=== PATIENT | female | born 1950 | race Caucasian/White ===

== ENCOUNTER 2017-02-07 13:31 | Emergency (ER) | payer MEDICARE ==
--- NOTE | 2017-02-07 14:59 | RAD ---
INDICATION: Chest pain. COMPARISON: Comparison is made with prior chest x-ray studies from July 14, 2016 and March 23, 2015. TECHNIQUE: Dual-energy PA and lateral views of the chest were obtained. FINDINGS: The heart is within normal limits in size. Mediastinal and hilar contours appear within normal limits. The lungs are clear. No pleural effusion is present. IMPRESSION: NO EVIDENCE FOR ACTIVE CARDIOPULMONARY DISEASE.
[2017-02-07 15:04] LABS: Hematocrit 37 % (35-47); Hemoglobin 12.2 g/dl (12.0-16.0); Mean Corpuscular HGB Conc 33 g/dl (31-36); Mean Corpuscular Hemoglobin 28 pg (27-31); Mean Corpuscular Volume 86 fL (80-97); Mean Platelet Volume 9 um3 (7.4-10.4); Red Blood Count 4.31 10^6/ul (4.0-5.4); Red Cell Distribution Width 13 % (10.5-15); White Blood Count 6.2 10^3/ul (3.5-10.8)
[2017-02-07 15:25] LABS: Albumin 4.1 g/dL (3.2-5.2); Calcium 9.2 mg/dL (8.6-10.3); EGFR African American 95.9 (>60); EGFR Non-African American 74.5 (>60); Globulin 2.6 g/dL (2-4); Total Bilirubin 0.9 mg/dL (0.2-1.0); Total Protein 6.7 g/dL (6.4-8.9)
[2017-02-07 16:24] VITALS: BP 125/65
--- NOTE | 2017-02-08 14:31 | ED ---
Jose M Rosa Matthew, scribed for Kahlil Ny MD on 02/07/17 at 1415 . HPI Chest Pain - HPI Summary HPI Summary: A 66 y/o female presents to the ED with sudden intermittent mid-sternal chest pain since 04:00 that radiates left anteriorly. Nothing worsens or improves the pain. Denies SOB, palpitations, and any other symptoms. Currently, the patient does not have any pain. She also had chest pain yesterday morning at 04:00 as well, which resolved on its own, after taking her Zantac. Hx of cardiac catheterization and HTN. She is on potassium for a tachycardia dysrhythmia. 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 Rogers. - History of Current Complaint Chief Complaint: EDChestWallPain Time Seen by Provider: 02/07/17 13:56 Hx Obtained From: Patient Onset/Duration: Started Hours Ago, Atraumatic, Still Present Timing: Intermittent Initial Severity: Moderate Current Severity: None Pain Intensity: 0 Pain Scale Used: 0-10 Numeric Chest Pain Location: Mid Sternal Chest Pain Radiates: Yes Chest Pain Radiates To:: Other - left anteriorly Aggravating Factor(s): Nothing Alleviating Factor(s): Nothing Associated Signs and Symptoms: Positive: Chest Pain - none currently - Additional Pertinent History Primary Care Physician: [id number] - Allergy/Home Medications Allergies/Adverse Reactions: Allergies Allergy/AdvReac Type Severity Reaction Status Date / Time Celecoxib [From Celebrex] Allergy Intermediate Fatigue Verified 07/13/16 13:23 Amoxicillin [From Augmentin] Allergy GI Upset Verified 07/13/16 13:23 Cephalexin [From Keflex] Allergy Dizziness Verified 07/13/16 13:23 Ciprofloxacin [From Cipro] Allergy Dizziness Verified 07/13/16 13:23 Clarithromycin [From Biaxin] Allergy Nausea Verified 07/13/16 13:23 Clavulanic Acid Allergy GI Upset Verified 07/13/16 13:23 [From Augmentin] Hydrocodone Allergy Nausea Verified 07/13/16 13:23 Penicillins Allergy Itching Verified 07/13/16 13:23 Cefuroxime [From Ceftin] AdvReac Nausea And Verified 07/13/16 13:23 Vomiting PMH/Surg Hx/FS Hx/Imm Hx Endocrine/Hematology History: Denies: Hx Diabetes Cardiovascular History: Reports: Hx Hypertension - ON MEDS, Other Cardiovascular Problems/Disorders - CLEAN CARDIAC CATHETERIZATION, HX OF GERD ALSO Denies: Hx Pacemaker/ICD GI History: Reports: Hx Gastroesophageal Reflux Disease, Hx Hiatal Hernia - ? NO PROBLEMS, THINKS DR GERARD TOLD HER AFTER EXAM History: Reports: Hx Kidney Stones - LEFT. Denies: Hx Renal Disease Musculoskeletal History: Reports: Hx Arthritis - Osteroarthritis Sensory History: Reports: Hx Contacts or Glasses - Reading only Denies: Hx Hearing Aid Opthamlomology History: Reports: Hx Contacts or Glasses - Reading only Psychiatric History: Reports: Hx Anxiety, Hx Depression - XANAX PRN , RARELY USES Denies: Hx Panic Disorder - Cancer History Hx Chemotherapy: No Hx Radiation Therapy: No - Surgical History Surgery Procedure, Year, and Place: cath 2008,gb 1969, vein stripped 2011, 2 c- sections, Bilateral knee arthroscopic, Hx Anesthesia Reactions: No - Immunization History Date of Tetanus Vaccine: unsure Date of Influenza Vaccine: 2012 Infectious Disease History: Denies: Traveled Outside the [place] in Last 30 Days - Family History Known Family History: Positive: Cardiac Disease, Diabetes, Other - kidney stone (sister) Negative: Hypertension - Social History Alcohol Use: None Substance Use Type: Reports: None Smoking Status (MU): Never Smoked Tobacco Review of Systems Constitutional: Negative Eyes: Negative ENT: Negative Positive: Chest Pain - none currently. Negative: Palpitations Respiratory: Negative Negative: Shortness Of Breath Gastrointestinal: Negative Genitourinary: Negative Musculoskeletal: Negative Skin: Negative Neurological: Negative Psychological: Normal All Other Systems Reviewed And Are Negative: Yes Physical Exam Triage Information Reviewed: Yes Vital Signs On Initial Exam: Initial Vitals Temp Pulse Resp BP Pulse Ox 97.6 F 89 18 135/78 99 02/07/17 13:36 02/07/17 13:36 02/07/17 13:36 02/07/17 13:36 02/07/17 13:36 Vital Signs Reviewed: Yes Appearance: Positive: Well-Appearing, No Pain Distress Skin: Positive: Warm, Skin Color Reflects Adequate Perfusion, Dry Head/Face: Positive: Normal Head/Face Inspection Eyes: Positive: Normal ENT: Positive: Normal ENT inspection Neck: Positive: Supple, Nontender Respiratory/Lung Sounds: Positive: Clear to Auscultation, Breath Sounds Present Cardiovascular: Positive: RRR Abdomen Description: Positive: Nontender, Soft Bowel Sounds: Positive: Present Musculoskeletal: Positive: Normal, Strength/ROM Intact Neurological: Positive: Normal, Alert, Oriented to Person Place, Time Psychiatric: Positive: Affect/Mood Appropriate Diagnostics - Vital Signs Vital Signs Temp Pulse Resp BP Pulse Ox 02/07/17 13:36 97.6 F 89 18 135/78 99 - Laboratory Lab Results: Lab Results 02/07/17 02/07/17 02/07/17 Range/Units 14:50 14:50 14:50 WBC 6.2 (3.5-10.8) 10^3/ul RBC 4.31 (4.0-5.4) 10^6/ul Hgb 12.2 (12.0-16.0) g/dl Hct 37 (35-47) % MCV 86 (80-97) fL MCH 28 (27-31) pg MCHC 33 (31-36) g/dl RDW 13 (10.5-15) % Plt Count 204 (150-450) 10^3/ul MPV 9 (7.4-10.4) um3 Neut % (Auto) 55.1 (38-83) % Lymph % (Auto) 33.1 (25-47) % Knott % (Auto) 7.6 (1-9) % Eos % (Auto) 3.5 (0-6) % Baso % (Auto) 0.7 (0-2) % Absolute Neuts (auto) 3.4 (1.5-7.7) 10^3/ul Absolute Lymphs (auto) 2.1 (1.0-4.8) 10^3/ul Absolute Monos (auto) 0.5 (0-0.8) 10^3/ul Absolute Eos (auto) 0.2 (0-0.6) 10^3/ul Absolute Basos (auto) 0 (0-0.2) 10^3/ul Absolute Nucleated RBC 0.01 10^3/ul Nucleated RBC % 0.2 D-Dimer, Quantitative < 200 (Less Than 230) ng/mL Sodium 137 (133-145) mmol/L Potassium 4.0 (3.5-5.0) mmol/L Chloride 107 (101-111) mmol/L Carbon Dioxide 25 (22-32) mmol/L Anion Gap 5 (2-11) mmol/L BUN 20 (6-24) mg/dL Creatinine 0.77 (0.51-0.95) mg/dL Est GFR ( Amer) 95.9 (>60) Est GFR (Non-Af Amer) 74.5 (>60) BUN/Creatinine Ratio 26.0 H (8-20) Glucose 101 H (70-100) mg/dL Lactic Acid (0.5-2.0) mmol/L Calcium 9.2 (8.6-10.3) mg/dL Total Bilirubin 0.90 (0.2-1.0) mg/dL AST 19 (13-39) U/L ALT 16 (7-52) U/L Alkaline Phosphatase 72 (34-104) U/L Troponin I 0.00 (<0.04) ng/mL Total Protein 6.7 (6.4-8.9) g/dL Albumin 4.1 (3.2-5.2) g/dL Globulin 2.6 (2-4) g/dL Albumin/Globulin Ratio 1.6 (1-3) 05/13/17 Range/Units 14:50 WBC (3.5-10.8) 10^3/ul RBC (4.0-5.4) 10^6/ul Hgb (12.0-16.0) g/dl Hct (35-47) % MCV (80-97) fL MCH (27-31) pg MCHC (31-36) g/dl RDW (10.5-15) % Plt Count (150-450) 10^3/ul MPV (7.4-10.4) um3 Neut % (Auto) (38-83) % Lymph % (Auto) (25-47) % Knott % (Auto) (1-9) % Eos % (Auto) (0-6) % Baso % (Auto) (0-2) % Absolute Neuts (auto) (1.5-7.7) 10^3/ul Absolute Lymphs (auto) (1.0-4.8) 10^3/ul Absolute Monos (auto) (0-0.8) 10^3/ul Absolute Eos (auto) (0-0.6) 10^3/ul Absolute Basos (auto) (0-0.2) 10^3/ul Absolute Nucleated RBC 10^3/ul Nucleated RBC % D-Dimer, Quantitative (Less Than 230) ng/mL Sodium (133-145) mmol/L Potassium (3.5-5.0) mmol/L Chloride (101-111) mmol/L Carbon Dioxide (22-32) mmol/L Anion Gap (2-11) mmol/L BUN (6-24) mg/dL Creatinine (0.51-0.95) mg/dL Est GFR ( Amer) (>60) Est GFR (Non-Af Amer) (>60) BUN/Creatinine Ratio (8-20) Glucose (70-100) mg/dL Lactic Acid 0.7 (0.5-2.0) mmol/L Calcium (8.6-10.3) mg/dL Total Bilirubin (0.2-1.0) mg/dL AST (13-39) U/L ALT (7-52) U/L Alkaline Phosphatase (34-104) U/L Troponin I (<0.04) ng/mL Total Protein (6.4-8.9) g/dL Albumin (3.2-5.2) g/dL Globulin (2-4) g/dL Albumin/Globulin Ratio (1-3) Result Diagrams: 02/07/17 14:50 02/07/17 14:50 Lab Statement: Any lab studies that have been ordered have been reviewed, and results considered in the medical decision making process. - Radiology CXR Xray Interpretation: No Acute Changes - IMPRESSION: NO EVIDENCE FOR ACTIVE CARDIOPULMONARY DISEASE. Radiology Interpretation Completed By: Radiologist - EKG 13:43 Cardiac Rate: NL - 74 bpm EKG Rhythm: Sinus Rhythm Chest Pain Course/Dx - Course Course Of Treatment: Ms. Alex presented to the ED after experiencing chest pain that woke her up at about 0400 two mornings in a row. This morning is tood about 90 minutes to resolve and she became concerned. Her W/U here including a troponin (11 hours after) and d-dimer (Well's criteria 0)was negative and I think this is likely reflux. We talked about ways to prevent it and I recommended F/U. - Diagnoses Provider Diagnoses: Chest pain Discharge - Discharge Plan Condition: Stable Disposition: HOME Patient Education Materials: Chest Pain (ED) Referrals: Sheng Bush MD [Primary Care Provider] - 2 Days Additional Instructions: Please follow-up with your primary care physician in 2 days. Return to the ED for new or worsening symptoms. The documentation as recorded by the Jose M gorman Matthew accurately reflects the service I personally performed and the decisions made by me, Kahlil Ny MD.
== END 2017-02-07 16:23 | disposition home or self-care (01) ==
LOC: ED 13:31
DX: R07.9 Chest pain, unspecified (principal)
CPT/HCPCS: 36415; 71020; 80053; 83605; 84484; 85025; 85379; 93005; 99282

== ENCOUNTER → 2017-07-13 07:43 | Emergency (ER) | payer MEDICARE ==
[~2017-07-13 07:43] MED LIST: Ketorolac INJ* 30 MG/ML 1 ML VIAL IV PUSH ONE; NS 0.9% 1000 ML* 1,000 ML IV ONE; Ondansetron INJ* 2 MG/ML VIAL IV ONE; Ondansetron INJ* 2 MG/ML VIAL ONE; cefTRIAXone(*) 2 GM ADDV.VIAL IVPB ONE
[2017-07-13 10:01] LABS: Hematocrit 38 % (35-47); Hemoglobin 12.7 g/dl (12.0-16.0); Mean Corpuscular HGB Conc 33 g/dl (31-36); Mean Corpuscular Hemoglobin 29 pg (27-31); Mean Corpuscular Volume 87 fL (80-97); Mean Platelet Volume 8 um3 (7.4-10.4); Red Blood Count 4.38 10^6/ul (4.0-5.4); Red Cell Distribution Width 14 % (10.5-15); White Blood Count 5.2 10^3/ul (3.5-10.8)
--- NOTE | 2017-07-13 10:07 | RAD ---
INDICATION: Head injury. COMPARISON: There are no prior studies available for comparison. TECHNIQUE: Contiguous axial sections of the brain were obtained from the skull base to the vertex without contrast. FINDINGS: The ventricles, cisterns and sulci are within normal limits. No significant focal abnormality or mass effect is seen. There is no evidence for hemorrhage. No significant focal osseous abnormality is seen. The visualized portion of the paranasal sinuses and mastoid air cells appear clear. IMPRESSION: NO EVIDENCE FOR ACUTE INTRACRANIAL ABNORMALITY.
[2017-07-13 10:12] LABS: Albumin 4.2 g/dL (3.2-5.2); BUN/Creatinine Ratio 24.7 (8-20); Calcium 9.4 mg/dL (8.6-10.3); EGFR African American 90.4 (>60); EGFR Non-African American 70.3 (>60); Globulin 2.6 g/dL (2-4); Magnesium 1.8 mg/dL (1.9-2.7); Potassium 3.9 mmol/L (3.5-5.0); Total Bilirubin 1.7 mg/dL (0.2-1.0); Total Protein 6.8 g/dL (6.4-8.9)
[2017-07-13] MEDS: NS 0.9% 1000 ML* 2,000 ML IV ONE (10:15)
--- NOTE | 2017-07-13 10:15 | RAD ---
INDICATION: Fall, stone disease, possible sepsis, malaise. COMPARISON: Comparison is made with a prior study from July 07, 2017. TECHNIQUE: A CT scan of the abdomen and pelvis was performed without intravenous or oral contrast. Contiguous axial sections were obtained from the lung bases through the symphysis pubis. Images were reconstructed in the coronal and sagittal planes. FINDINGS: There is mild dependent bilateral lower lobe subsegmental atelectasis. No pleural effusion is present. The liver and spleen are normal in size without significant focal abnormality on this noncontrast study. The patient is status post cholecystectomy. The pancreas appears to be within normal limits. The adrenal glands and kidneys are normal in size. There is a 5 mm calculus in the lower pole of the right kidney. No hydronephrosis is present. No bladder calculi are seen. The aorta is normal in caliber without significant calcific plaque. No significant enlarged retroperitoneal lymph nodes are seen. There is a small hiatal hernia. The stomach, small and large bowel appear nondistended. The appendix is not visualized. There is mild to moderate sigmoid diverticulosis. There is no evidence for diverticulitis or colitis. The uterus is anteverted and normal in size. No free intraperitoneal air or fluid is seen. No significant focal osseous abnormality is seen. IMPRESSION: 1. NO EVIDENCE FOR ACUTE FINDING. 2. SMALL NONOBSTRUCTING RIGHT RENAL CALCULUS. 3. STATUS POST CHOLECYSTECTOMY.
--- NOTE | 2017-07-13 10:21 | RAD ---
INDICATION: Fall. Neck pain. COMPARISON: Cervical spine November 24, 2013 TECHNIQUE: Noncontrast axial source images was performed from the skull base to the thoracic inlet. Coronal and and sagittal reformatted images were generated. FINDINGS: Vertebrae: There is no fracture or acute focal bony lesion. There is multilevel spondylitic change. There is moderate spurring from C5 through T1. There is mild to moderate disc space narrowing at C5-C6 and C6-C7 with uncinate process spurring leading to mild bilateral foraminal encroachment at both levels. There is mild posterior spondylitic ridge formation at C5-C7 There is moderate facet arthropathy throughout. Alignment: The craniocervical junction appears normal. The cervical vertebrae are normally aligned. Central Canal: There is no significant canal or foraminal compromise but there are the degenerative findings as noted above. MR imaging is a more sensitive method to evaluate the canal and foramina. Intervertebral disc spaces: The remaining disc spaces are maintained. Brain: The visualized brain appears unremarkable. Soft tissues: The visualized soft tissue elements of the neck are unremarkable. The prevertebral soft tissues appear normal. The lung apices are clear. IMPRESSION: MODERATE MIDCERVICAL OSTEOARTHRITIC CHANGE. NO ACUTE FINDINGS
[2017-07-13 10:38] LABS: TSH (Thyroid Stimulating Horm) 0.31 mcIU/mL (0.34-5.60)
--- NOTE | 2017-07-13 11:20 | RAD ---
Indication: Pain RIGHT upper arm post fall. Comparison: No relevant prior exams available on the [facility] PACS for comparison. Technique: AP and lateral views RIGHT humerus. Report: Negative for humerus fracture or articular malalignment. Mild spurring and sclerosis at the greater tuberosity of the humerus typically seen in association with chronic rotator cuff pathology. Mild AC joint osteophytosis and small inferior acromial bone spur. Unremarkable soft tissue contours. IMPRESSION: Negative for fracture.
--- NOTE | 2017-07-13 11:25 | RAD ---
INDICATION: Left knee pain. Fall. COMPARISON: None TECHNIQUE: AP, lateral, tunnel, and sunrise views were obtained. FINDINGS: There is osteopenia. There is minor patellofemoral spurring. The lateral joint space is preserved. There is mild medial joint space narrowing. There is chondrocalcinosis. There is a small suprapatellar joint effusion. IMPRESSION: OSTEOARTHRITIS. JOINT EFFUSION. NO ACUTE FINDINGS
[2017-07-13 11:37] LABS: Urine Bacteria Absent (Absent); Urine Bilirubin Negative (Negative); Urine Glucose Negative (Negative); Urine Nitrite Negative (Negative)
[2017-07-13 13:26] VITALS: BP 128/65
--- NOTE | 2017-07-14 14:17 | ED ---
Reji Rosa Alfonso scribed for Barney Sheppard MD on 07/13/17 at 0838 . Adult Trauma - HPI Summary HPI Summary: This patient is a 66 year old F presenting to [facility] accompanied by family s/p a fall at 0600 yesterday morning. She took a face plant into a lawn of grass after tripping over a piece of metal. She was assisted to stand after her fall. She was seen last night at [facility] urgent care and given a tetanus injection. The patient rates the pain 8/10 in severity. Symptoms aggravated by I fell because it was dark out. Symptoms alleviated by nothing. Patient reports chills (since this morning), nausea, vomiting, diffuse myalgia, right knee pain , right shoulder pain, right elbow pain, back pain, fatigue, weakness, loss of appetite (she ate dinner last night), and head band. Patient denies fever, diaphoresis, abdominal pain, diarrhea, LOC, dizziness, lightheadedness, memory loss, difficulty thinking, and insomnia (slept well last night). She is currently on MacroBID abx. PMHx includes osteoarthritis. - History of Current Complaint Chief Complaint: EDFacialInjury Stated Complaint: FALL Time Seen by Provider: 07/13/17 08:11 Hx Obtained From: Patient, Family/Managing Manager Mechanism of Injury: Fall Loss of Consciousness: no loss of consciousness Onset/Duration: Started Days Ago Current Severity: Severe Pain Intensity: 8 Pain Scale Used: 0-10 Numeric Aggravating Factor(s): Other - I fell because it was dark out. Alleviating Factor(s): Nothing Associated Signs & Symptoms: Positive: Other: - chills (since this morning), nausea, vomiting, diffuse myalgia, right knee pain, right shoulder pain, right elbow pain, back pain, fatigue, weakness, loss of appetite (she ate dinner last night), and head band. Patient denies fever, diaphoresis, abdominal pain, diarrhea, LOC, dizziness, lightheadedness, memory loss, difficulty thinking, and insomnia (slept well last night). - Additional Pertinent History Primary Care Physician: [id number] - Allergy/Home Medications Allergies/Adverse Reactions: Allergies Allergy/AdvReac Type Severity Reaction Status Date / Time Celecoxib [From Celebrex] Allergy Intermediate Fatigue Verified 07/13/17 07:53 Amoxicillin [From Augmentin] Allergy GI Upset Verified 07/13/17 07:53 Cephalexin [From Keflex] Allergy Dizziness Verified 07/13/17 07:53 Ciprofloxacin [From Cipro] Allergy Dizziness Verified 07/13/17 07:53 Clarithromycin [From Biaxin] Allergy Nausea Verified 07/13/17 07:53 Clavulanic Acid Allergy GI Upset Verified 07/13/17 07:53 [From Augmentin] Hydrocodone Allergy Nausea Verified 07/13/17 07:53 Penicillins Allergy Itching Verified 07/13/17 07:53 Cefuroxime [From Ceftin] AdvReac Nausea And Verified 07/13/17 07:53 Vomiting PMH/Surg Hx/FS Hx/Imm Hx Endocrine/Hematology History: Denies: Hx Diabetes Cardiovascular History: Reports: Hx Hypertension - ON MEDS, Other Cardiovascular Problems/Disorders - CLEAN CARDIAC CATHETERIZATION, HX OF GERD ALSO Denies: Hx Pacemaker/ICD GI History: Reports: Hx Gastroesophageal Reflux Disease, Hx Hiatal Hernia - ? 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 Sensory History: Reports: Hx Contacts or Glasses - Reading only Denies: Hx Hearing Aid Opthamlomology History: Reports: Hx Contacts or Glasses - Reading only Psychiatric History: Reports: Hx Anxiety, Hx Depression - XANAX PRN , RARELY USES Denies: Hx Panic Disorder - Cancer History Hx Chemotherapy: No Hx Radiation Therapy: No - Surgical History Surgery Procedure, Year, and Place: cath 2008,cholecystectomy 1969, vein stripped 2011, 2 c-sections, Bilateral knee arthroscopic, Hx Anesthesia Reactions: No - Immunization History Date of Tetanus Vaccine: unsure Date of Influenza Vaccine: 2013 Infectious Disease History: No Infectious Disease History: Denies: Traveled Outside the [place] in Last 30 Days - Family History Known Family History: Positive: Cardiac Disease, Diabetes, Other - kidney stone (sister) Negative: Hypertension - Social History Alcohol Use: None Substance Use Type: Reports: None Smoking Status (MU): Never Smoked Tobacco Review of Systems Positive: Chills. Negative: Fever, Skin Diaphoresis Negative: Erythema Negative: Sore Throat Negative: Chest Pain Negative: Shortness Of Breath, Cough Positive: Vomiting, Nausea. Negative: Abdominal Pain, Diarrhea Negative: dysuria, hematuria Positive: Myalgia, Other - right knee pain, right shoulder pain, right elbow pain, back pain. Negative: Edema Negative: Rash Neurological: Other - fatigue, weakness, loss of appetite (she ate dinner last night), and head band. Negative LOC, dizziness, lightheadedness, memory loss, difficulty thinking, and insomnia (slept well last night). All Other Systems Reviewed And Are Negative: Yes Physical Exam - Summary Physical Exam Summary: Constitutional: Well-developed, Well-nourished, Alert, Cooperative Skin: Warm, Dry HENT: Normocephalic; No Racoons eyes; No battles sign; No abrasion; No contusion ; No hemotympanum; No maxilla facial tenderness or instability; Dentition are smooth; No dental trauma; No trismus Eyes: EOM normal, PERRL Neck: Trachea is midline. No stridor; No JVD; No step off; No posterior cervical spine tenderness Cardio: Rhythm regular, rate normal Heart sounds normal; Intact distal pulses; The pedal pulses are 2+ and symmetric. Radial pulses are 2+ and symmetric. Pulmonary/Chest wall: Effort normal; Breath sounds normal; Equal chest rise; No flail segment; No rib tenderness; No sternal tenderness Abd: Soft, Appearance normal. No distension; No tenderness; No palpable pulsatile mass; No Cullens sign; No Britt-Turners sign Musculoskeletal: No tenderness at hips, ankles, shoulders, elbows and knees; No joint swelling; No vertebral body tenderness; No paraspinal tenderness; No step off or deformity of the spine; Pelvis is stable to lateral compression and rock. Mild right humorous tenderness. Left knee swelling with limited ROM. Neuro: Alert, Oriented x3, Strength 5/5 all extremities. : No blood at urethral meatus Psych: Mood and affect Normal Triage Information Reviewed: Yes Vital Signs On Initial Exam: Initial Vitals Temp Pulse Resp BP Pulse Ox 98.0 F 93 16 96/69 100 07/13/17 07:44 07/13/17 07:44 07/13/17 07:44 07/13/17 07:44 07/13/17 07:44 Vital Signs Reviewed: Yes Diagnostics - Vital Signs Vital Signs Temp Pulse Resp BP Pulse Ox 07/13/17 07:44 98.0 F 93 16 96/69 100 - Laboratory Result Diagrams: 07/13/17 09:25 07/13/17 09:25 Lab Statement: Any lab studies that have been ordered have been reviewed, and results considered in the medical decision making process. - Radiology Right humerus X-Ray Radiology Interpretation Completed By: Radiologist - Negative for fracture. ED physician has reviewed this radiology report and agrees. Left knee X-Ray Radiology Interpretation Completed By: Radiologist - OSTEOARTHRITIS. JOINT EFFUSION. NO ACUTE FINDINGS. ED physician has reviewed this radiology report and agrees. - CT A/P CT Interpretation Completed By: Radiologist - 1. NO EVIDENCE FOR ACUTE FINDING. 2. SMALL NONOBSTRUCTING RIGHT RENAL CALCULUS. 3. STATUS POST CHOLECYSTECTOMY. ED physician has reviewed this radiology report and agrees. C-Spine CT Interpretation Completed By: Radiologist - MODERATE MIDCERVICAL OSTEOARTHRITIC CHANGE. NO ACUTE FINDINGS. ED physician has reviewed this radiology report and agrees. Brain CT Interpretation Completed By: Radiologist - NO EVIDENCE FOR ACUTE INTRACRANIAL ABNORMALITY. ED physician has reviewed this radiology report and agrees. - EKG 0855 Cardiac Rate: NL - BPM 90 EKG Rhythm: Sinus Rhythm EKG Interpretation: No STEMI. Re-Evaluation - Re-Evaluation First Eval Re-Evaluation Time: 13:00 Change: Improved Comment: Patient is feeling much improved with toradol. Imaging and lab results reviewed. Adult Trauma Course/Dx - Course Assessment/Plan: This patient is a 66 year old F presenting to [facility] accompanied by family s/p a fall at 0600 yesterday morning. She took a face plant into a lawn of grass after tripping over a piece of metal. She was assisted to stand after her fall. She was seen last night at [facility] urgent care and given a tetanus injection. The patient rates the pain 8/10 in severity. Symptoms aggravated by I fell because it was dark out. Symptoms alleviated by nothing. Patient reports chills (since this morning), nausea, vomiting, diffuse myalgia, right knee pain, right shoulder pain, right elbow pain, back pain, fatigue, weakness, loss of appetite (she ate dinner last night), and head band. Patient denies fever, diaphoresis, abdominal pain, diarrhea, LOC, dizziness, lightheadedness, memory loss, difficulty thinking, and insomnia (slept well last night). She is currently on MacroBID abx. PMHx includes osteoarthritis. An EKG reveals NSR. CT brain reveals NO EVIDENCE FOR ACUTE INTRACRANIAL ABNORMALITY. ED physician has reviewed this radiology report and agrees. CT C- Spine reveals MODERATE MIDCERVICAL OSTEOARTHRITIC CHANGE. NO ACUTE FINDINGS. ED physician has reviewed this radiology report and agrees. CT A/P reveals 1. NO EVIDENCE FOR ACUTE FINDING. 2. SMALL NONOBSTRUCTING RIGHT RENAL CALCULUS. 3. STATUS POST CHOLECYSTECTOMY. ED physician has reviewed this radiology report and agrees. Left knee X-Ray reveals OSTEOARTHRITIS. JOINT EFFUSION. NO ACUTE FINDINGS. ED physician has reviewed this radiology report and agrees. Right humerus X-Ray reveals Negative for fracture. ED physician has reviewed this radiology report and agrees. Patient will be discharged with prescription for Keflex and Toradol and follow up from PCP. The patient is agreeable with this plan. - Diagnoses Provider Diagnoses: Pyuria, Concussion, Arm contusion, Knee contusion Discharge - Discharge Plan Condition: Stable Disposition: HOME Prescriptions: Cephalexin CAP* [Keflex CAP*] 500 mg PO QID #28 cap Ketorolac TAB * [Toradol TAB *] 10 mg PO Q6H #10 tab Patient Education Materials: Knee Pain (ED), Concussion (ED) Referrals: Sheng Bush MD [Primary Care Provider] - 3 Days Additional Instructions: RETURN TO THE EMERGENCY DEPARTMENT FOR CHANGING OR WORSENING SYMPTOMS. The documentation as recorded by the Reji gorman Alfonso accurately reflects the service I personally performed and the decisions made by , Barney Sheppard MD.
== END | disposition home or self-care (01) ==
LOC: ED 07:43
DX: N39.0 Urinary tract infection, site not specified (principal); S06.0X0A Concussion without loss of consciousness, initial encounter; S40.029A Contusion of unspecified upper arm, initial encounter; S80.00XA Contusion of unspecified knee, initial encounter; R11.2 Nausea with vomiting, unspecified; W22.8XXA Striking against or struck by other objects, initial encounter; Y93.9 Activity, unspecified; Y92.9 Unspecified place or not applicable
CPT/HCPCS: 36415; 70450; 72125; 74176; 80053; 81003; 81015; 83605; 83735; 84443; 84484; 85025; 87040; 87086; 93005; 96374; 96376; 99283; J0696; J1885; J2405

== ENCOUNTER 2017-10-05 08:43 | Emergency (ER) | payer MEDICARE ==
[2017-10-05] MEDS ORDERED: NS 0.9% 1000 ML* 1,000 ML IV ONE (10:10)
[2017-10-05 10:32] LABS: ABS Basophils 0 10^3/ul (0-0.2); ABS Eosinophils 0.1 10^3/ul (0-0.6); ABS Lymphocytes 1.7 10^3/ul (1.0-4.8); ABS Monocytes 0.6 10^3/ul (0-0.8); ABS Neutrophils 4.5 10^3/ul (1.5-7.7); ABS Nucleated RBC 0 10^3/ul; Eosinophil % 1.5 % (0-6); Hematocrit 36 % (35-47); Hemoglobin 11.9 g/dl (12.0-16.0); Lymphocyte % 24.3 % (25-47); Mean Corpuscular HGB Conc 34 g/dl (31-36); Mean Corpuscular Hemoglobin 29 pg (27-31); Mean Corpuscular Volume 87 fL (80-97); Mean Platelet Volume 8 um3 (7.4-10.4); Nucleated Red Blood Cells % 0; Platelet Count 220 10^3/ul (150-450); Red Blood Count 4.08 10^6/ul (4.0-5.4); Red Cell Distribution Width 13 % (10.5-15); White Blood Count 6.9 10^3/ul (3.5-10.8)
[2017-10-05 10:45] LABS: INR 1.09 (0.77-1.02)
[2017-10-05 10:50] LABS: EGFR Non-African American 99.4 (>60)
--- NOTE | 2017-10-05 10:57 | RAD ---
Indication: Chest pain. Single frontal view of the chest performed at 1020 hours was reviewed. Comparison is made with previous exam dated August 27, 2017. No mediastinal shift is noted. Heart is of normal size and configuration. Lung mag[place] appear clear. There is elevated right hemidiaphragm. IMPRESSION: NO ACTIVE CARDIOPULMONARY DISEASE IS NOTED.
[2017-10-05 12:08] LABS: Urine Appearance Clear; Urine Blood Negative (Negative); Urine Color Yellow; Urine Ketones Negative (Negative); Urine Protein Negative (Negative); Urine Specific Gravity 1.013 (1.010-1.030); Urine Urobilinogen Negative (Negative)
--- NOTE | 2017-10-05 13:30 | ED ---
Cecil Rosa Gabriel, scribed for Avila Calvin MD on 10/05/17 at 0959 . Complex/Multi-Sys Presentation - HPI Summary HPI Summary: This patient is a 66 year old F presenting to [facility] with a chief complaint of body aches since 10/02/17. The patient rates the pain 2/10 in severity. Patient reports right shoulder pain and LE pain bilaterally. Patient denies ABD pain and urine color changes. She states these pains are causing her inability to move. Patient says that her pain began in June after her fall but has gotten worse in the past three days. She recently she has been taken an antibiotic for her UTI and believes this may be causing her pain although she had taken in before. - History Of Current Complaint Chief Complaint: EDGeneral Hx Obtained From: Patient, Family/Salvager Onset/Duration: Lasting Days - 3, Still Present Timing: Constant Severity Currently: Mild Severity Initially: Mild Location: Pain At: - right shoulder, bilateral LE Associated Signs And Symptoms: Negative: Abdominal Pain - Allergies/Home Medications Allergies/Adverse Reactions: Allergies Allergy/AdvReac Type Severity Reaction Status Date / Time Celecoxib [From Celebrex] Allergy Intermediate Fatigue Verified 10/05/17 09:15 Amoxicillin [From Augmentin] Allergy GI Upset Verified 10/05/17 09:15 Cephalexin [From Keflex] Allergy Dizziness Verified 10/05/17 09:15 Ciprofloxacin [From Cipro] Allergy Dizziness Verified 10/05/17 09:15 Clarithromycin [From Biaxin] Allergy Nausea Verified 10/05/17 09:15 Clavulanic Acid Allergy GI Upset Verified 10/05/17 09:15 [From Augmentin] Hydrocodone Allergy Nausea Verified 10/05/17 09:15 Penicillins Allergy Itching Verified 10/05/17 09:15 Cefuroxime [From Ceftin] AdvReac Nausea And Verified 10/05/17 09:15 Vomiting Home Medications: Home Medications Nitrofurantoin Macrocrystals* [Macrodantin*] 100 mg PO BID 10/05/17 [History Confirmed 10/05/17] PMH/Surg Hx/FS Hx/Imm Hx Endocrine/Hematology History: Denies: Hx Diabetes Cardiovascular History: Reports: Hx Hypertension - ON MEDS, Other Cardiovascular Problems/Disorders - CLEAN CARDIAC CATHETERIZATION, HX OF GERD ALSO Denies: Hx Pacemaker/ICD GI History: Reports: Hx Gastroesophageal Reflux Disease, Hx Hiatal Hernia - ? 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 Sensory History: Reports: Hx Contacts or Glasses - Reading only Denies: Hx Hearing Aid Opthamlomology History: Reports: Hx Contacts or Glasses - Reading only Psychiatric History: Reports: Hx Anxiety, Hx Depression - XANAX PRN , RARELY USES Denies: Hx Panic Disorder - Cancer History Hx Chemotherapy: No Hx Radiation Therapy: No - Surgical History Surgery Procedure, Year, and Place: cath 2008,cholecystectomy 1970, vein stripped 2011, 2 c-sections, Bilateral knee arthroscopic, Hx Anesthesia Reactions: No - Immunization History Date of Tetanus Vaccine: unsure Date of Influenza Vaccine: 2012 Infectious Disease History: Yes Infectious Disease History: Denies: Traveled Outside the [place] in Last 30 Days - Family History Known Family History: Positive: Cardiac Disease, Diabetes, Other - kidney stone (sister) Negative: Hypertension - Social History Lives: With Family Alcohol Use: None Hx Substance Use: No Substance Use Type: Reports: None Hx Tobacco Use: No Smoking Status (MU): Former Smoker Review of Systems Positive: Fatigue Eyes: Negative ENT: Negative Cardiovascular: Negative Respiratory: Negative Negative: Abdominal Pain Genitourinary: Negative - abnormal urine color Negative: hematuria Positive: Other - pain at right shoulder and both LE Skin: Negative All Other Systems Reviewed And Are Negative: Yes Physical Exam - Summary Physical Exam Summary: Appearance: Well-appearing, Well-nourished Skin: Warm Eyes: Normal ENT: Normal Neck: Supple, nontender Respiratory: Clear to auscultation Cardiovascular: Normal, Normal peripheral pulses bilaterally in upper and lower extremities. Abdomen: Soft, nontender Bowel: Present Musculoskeletal: Normal, Strength/ROM Intact, Neurological: Normal, A&Ox3 Psychiatric: Normal Triage Information Reviewed: Yes Vital Signs On Initial Exam: Initial Vitals Temp Pulse Resp BP Pulse Ox 97.4 F 96 18 158/82 97 10/05/17 08:51 10/05/17 08:51 10/05/17 08:51 10/05/17 08:51 10/05/17 08:51 Vital Signs Reviewed: Yes Diagnostics - Vital Signs Vital Signs Temp Pulse Resp BP Pulse Ox 10/05/17 09:08 87 97 10/05/17 09:06 138/72 10/05/17 08:51 97.4 F 96 18 158/82 97 - Laboratory Lab Results: Lab Results 10/05/17 10/05/17 10/05/17 Range/Units 10:17 10:17 10:17 WBC 6.9 (3.5-10.8) 10^3/ul RBC 4.08 (4.0-5.4) 10^6/ul Hgb 11.9 L (12.0-16.0) g/dl Hct 36 (35-47) % MCV 87 (80-97) fL MCH 29 (27-31) pg MCHC 34 (31-36) g/dl RDW 13 (10.5-15) % Plt Count 220 (150-450) 10^3/ul MPV 8 (7.4-10.4) um3 Neut % (Auto) 65.3 (38-83) % Lymph % (Auto) 24.3 L (25-47) % [place] % (Auto) 8.2 (1-9) % Eos % (Auto) 1.5 (0-6) % Baso % (Auto) 0.7 (0-2) % Absolute Neuts (auto) 4.5 (1.5-7.7) 10^3/ul Absolute Lymphs (auto) 1.7 (1.0-4.8) 10^3/ul Absolute Monos (auto) 0.6 (0-0.8) 10^3/ul Absolute Eos (auto) 0.1 (0-0.6) 10^3/ul Absolute Basos (auto) 0 (0-0.2) 10^3/ul Absolute Nucleated RBC 0 10^3/ul Nucleated RBC % 0 INR (Anticoag Therapy) 1.09 H (0.77-1.02) Sodium 138 (133-145) mmol/L Potassium 3.5 (3.5-5.0) mmol/L Chloride 107 (101-111) mmol/L Carbon Dioxide 28 (22-32) mmol/L Anion Gap 3 (2-11) mmol/L BUN 22 (6-24) mg/dL Creatinine 0.60 (0.51-0.95) mg/dL Est GFR ( Amer) 127.9 (>60) Est GFR (Non-Af Amer) 99.4 (>60) BUN/Creatinine Ratio 36.7 H (8-20) Glucose 87 (70-100) mg/dL Calcium 9.2 (8.6-10.3) mg/dL Magnesium 2.0 (1.9-2.7) mg/dL Total Bilirubin 0.80 (0.2-1.0) mg/dL AST 15 (13-39) U/L ALT 18 (7-52) U/L Alkaline Phosphatase 75 (34-104) U/L Total Creatine Kinase 671 H (10-223) U/L Troponin I 0.00 (<0.04) ng/mL Total Protein 6.5 (6.4-8.9) g/dL Albumin 3.8 (3.2-5.2) g/dL Globulin 2.7 (2-4) g/dL Albumin/Globulin Ratio 1.4 (1-3) TSH 0.69 (0.34-5.60) mcIU/mL Urine Color Urine Appearance Urine pH (5-9) Ur Specific [place] (1.010-1.030) Urine Protein (Negative) Urine Ketones (Negative) Urine Blood (Negative) Urine Nitrate (Negative) Urine Bilirubin (Negative) Urine Urobilinogen (Negative) Ur Leukocyte Esterase (Negative) Urine WBC (Auto) (Absent) Urine RBC (Auto) (Absent) Ur Squamous Epith Cells (Absent) Urine Bacteria (Absent) Urine Glucose (Negative) Influenza A (Rapid) (Negative) Influenza B (Rapid) (Negative) Blood Type Antibody Screen 10/05/17 10/05/17 10/05/17 Range/Units 10:17 11:45 11:59 WBC (3.5-10.8) 10^3/ul RBC (4.0-5.4) 10^6/ul Hgb (12.0-16.0) g/dl Hct (35-47) % MCV (80-97) fL MCH (27-31) pg MCHC (31-36) g/dl RDW (10.5-15) % Plt Count (150-450) 10^3/ul MPV (7.4-10.4) um3 Neut % (Auto) (38-83) % Lymph % (Auto) (25-47) % [place] % (Auto) (1-9) % Eos % (Auto) (0-6) % Baso % (Auto) (0-2) % Absolute Neuts (auto) (1.5-7.7) 10^3/ul Absolute Lymphs (auto) (1.0-4.8) 10^3/ul Absolute Monos (auto) (0-0.8) 10^3/ul Absolute Eos (auto) (0-0.6) 10^3/ul Absolute Basos (auto) (0-0.2) 10^3/ul Absolute Nucleated RBC 10^3/ul Nucleated RBC % INR (Anticoag Therapy) (0.77-1.02) Sodium (133-145) mmol/L Potassium (3.5-5.0) mmol/L Chloride (101-111) mmol/L Carbon Dioxide (22-32) mmol/L Anion Gap (2-11) mmol/L BUN (6-24) mg/dL Creatinine (0.51-0.95) mg/dL Est GFR ( Amer) (>60) Est GFR (Non-Af Amer) (>60) BUN/Creatinine Ratio (8-20) Glucose (70-100) mg/dL Calcium (8.6-10.3) mg/dL Magnesium (1.9-2.7) mg/dL Total Bilirubin (0.2-1.0) mg/dL AST (13-39) U/L ALT (7-52) U/L Alkaline Phosphatase (34-104) U/L Total Creatine Kinase (10-223) U/L Troponin I (<0.04) ng/mL Total Protein (6.4-8.9) g/dL Albumin (3.2-5.2) g/dL Globulin (2-4) g/dL Albumin/Globulin Ratio (1-3) TSH (0.34-5.60) mcIU/mL Urine Color Yellow Urine Appearance Clear Urine pH 6.0 (5-9) Ur Specific [place] 1.013 (1.010-1.030) Urine Protein Negative (Negative) Urine Ketones Negative (Negative) Urine Blood Negative (Negative) Urine Nitrate Negative (Negative) Urine Bilirubin Negative (Negative) Urine Urobilinogen Negative (Negative) Ur Leukocyte Esterase Trace H (Negative) Urine WBC (Auto) Trace(0-5/hpf) (Absent) Urine RBC (Auto) Trace(0-2/hpf) (Absent) Ur Squamous Epith Cells Present H (Absent) Urine Bacteria Absent (Absent) Urine Glucose Negative (Negative) Influenza A (Rapid) Negative (Negative) Influenza B (Rapid) Positive H (Negative) Blood Type A Positive Antibody Screen Negative Result Diagrams: 10/05/17 10:17 10/05/17 10:17 Lab Statement: Any lab studies that have been ordered have been reviewed, and results considered in the medical decision making process. - Radiology CXR Radiology Interpretation Completed By: Radiologist - NO ACTIVE CARDIOPULMONARY DISEASE IS NOTED. ED physician has reviewed this radiology report. - EKG 10:20 Cardiac Rate: NL EKG Rhythm: Sinus Rhythm - at 72 BPM Re-Evaluation - Re-Evaluation First Eval Re-Evaluation Time: 13:07 Change: Unchanged Comment: Discussed test results with patient and path of care. Complex Multi-Symp Course/Dx Assessment/Plan: flu positive, consistent with history and physical with migratory arthritis and diffuse muscle aches. Pt complains of vague R sided weakness and has elevated R sided hemidiaphragm seen on prior XRays. Mildly decreased breath sounds on R lung, instructed to fu with neurologist for further workup. No resp distress, agrees to and understnads dc instructions. - Diagnoses Provider Diagnoses: Influenza Discharge - Discharge Plan Condition: Stable Disposition: HOME Patient Education Materials: Influenza (ED) Referrals: Sheng Bush MD [Primary Care Provider] - Additional Instructions: PLEASE MAKE AN APPOINTMENT FIRST THING IN THE MORNING TO BE SEEN BY A NEUROLOGIST TO EVALUATE WEAKNESS AND ELEVATED HEMIDIAPHRAGM WITHIN 1-2 WEEKS PLEASE RETURN IMMEDIATELY TO THE ER IF YOU HAVE ANY WORSENING OR CONCERNING SYMPTOMS PLEASE MAKE AN APPOINTMENT TO BE SEEN BY YOUR PRIMARY CARE DOCTOR WITHIN 1 WEEK The documentation as recorded by the Cecil gorman Gabriel accurately reflects the service I personally performed and the decisions made by me, Avila Calvin MD.
[2017-10-05 14:16] VITALS: BP 140/90
== END 2017-10-05 14:15 | disposition home or self-care (01) ==
LOC: ED 08:43
DX: J11.1 Influenza due to unidentified influenza virus with other respiratory manifestations (principal); Z87.891 Personal history of nicotine dependence; Z88.3 Allergy status to other anti-infective agents; Z88.5 Allergy status to narcotic agent; Z88.0 Allergy status to penicillin; Z88.8 Allergy status to other drugs, medicaments and biological substances
CPT/HCPCS: 36415; 71045; 80053; 81003; 81015; 82550; 83735; 84443; 84484; 85025; 85610; 86850; 86900; 86901; 87086; 87502; 93005; 96360; 99283

== ENCOUNTER 2017-10-12 04:32 | Emergency (ER) | payer MEDICARE ==
[2017-10-12] MEDS ORDERED: NS 0.9% 1000 ML* 1,000 ML IV ONE (05:00)
[2017-10-12] MEDS ORDERED: Ketorolac INJ* 30 MG/ML 1 ML VIAL IV PUSH ONE (05:03)
[2017-10-12 05:34] LABS: ABS Basophils 0 10^3/ul (0-0.2); ABS Eosinophils 0.1 10^3/ul (0-0.6); ABS Lymphocytes 1.8 10^3/ul (1.0-4.8); ABS Monocytes 0.6 10^3/ul (0-0.8); ABS Neutrophils 5.1 10^3/ul (1.5-7.7); ABS Nucleated RBC 0 10^3/ul; Eosinophil % 1.6 % (0-6); Hematocrit 35 % (35-47); Hemoglobin 11.8 g/dl (12.0-16.0); Lymphocyte % 23.8 % (25-47); Mean Corpuscular HGB Conc 34 g/dl (31-36); Mean Corpuscular Hemoglobin 29 pg (27-31); Mean Corpuscular Volume 87 fL (80-97); Mean Platelet Volume 8 um3 (7.4-10.4); Nucleated Red Blood Cells % 0; Platelet Count 249 10^3/ul (150-450); Red Blood Count 4.04 10^6/ul (4.0-5.4); Red Cell Distribution Width 13 % (10.5-15); White Blood Count 7.6 10^3/ul (3.5-10.8)
[2017-10-12 05:48] LABS: EGFR Non-African American 89.1 (>60)
[2017-10-12] MEDS ORDERED: Potassium Chlor TAB* 20 MEQ TAB.ER PO ONE (06:01)
[2017-10-12] MEDS ORDERED: Morphine INJ* 4 MG/ML 1 ML CARPUJECT IV ONE (06:06)
[2017-10-12] MEDS ORDERED: Ondansetron INJ* 2 MG/ML VIAL IV ONE (06:06)
[2017-10-12 07:06] VITALS: BP 116/99
[2017-10-12] MEDS ORDERED: Ondansetron ODT TAB* 4 MG SL PRN (07:12)
[2017-10-12] MEDS ORDERED: Ondansetron ODT TAB* 4 MG ONE (07:13)
--- NOTE | 2017-10-12 20:04 | ED ---
Ti Rosa Nilda, scribed for Kaiser Cummins MD on 10/12/17 at 0618 . Influenza-Like Illness - HPI Summary HPI Summary: This patient is a 66 year old F presenting to [facility] accompanied by with a chief complaint of constant severe diffuse body aches for the past week. The patient rates the pain 7/10 in severity. Patient was recently dx with flu on 10/05. Patient denies fever, rash, and weakness. Symptoms aggravated by movement and alleviated by rest. - History of Current Complaint Chief Complaint: EDWeakness Time Seen by Provider: 10/12/17 04:40 Hx Obtained From: Patient Onset/Duration: Sudden Onset, Lasting Weeks, Still Present Severity: Moderate Associated Signs & Symptoms: Myalgia Related Hx: Possible Flu/Infectious Exposure - Allergy/Home Medications Allergies/Adverse Reactions: Allergies Allergy/AdvReac Type Severity Reaction Status Date / Time Celecoxib [From Celebrex] Allergy Intermediate Fatigue Verified 10/12/17 04:41 Amoxicillin [From Augmentin] Allergy GI Upset Verified 10/12/17 04:41 Cephalexin [From Keflex] Allergy Dizziness Verified 10/12/17 04:41 Ciprofloxacin [From Cipro] Allergy Dizziness Verified 10/12/17 04:41 Clarithromycin [From Biaxin] Allergy Nausea Verified 10/12/17 04:41 Clavulanic Acid Allergy GI Upset Verified 10/12/17 04:41 [From Augmentin] Hydrocodone Allergy Nausea Verified 10/12/17 04:41 Penicillins Allergy Itching Verified 10/12/17 04:41 Cefuroxime [From Ceftin] AdvReac Nausea And Verified 10/12/17 04:41 Vomiting PMH/Surg Hx/FS Hx/Imm Hx Endocrine/Hematology History: Denies: Hx Diabetes Cardiovascular History: Reports: Hx Hypertension - ON MEDS, Other Cardiovascular Problems/Disorders - CLEAN CARDIAC CATHETERIZATION, HX OF GERD ALSO Denies: Hx Pacemaker/ICD GI History: Reports: Hx Gastroesophageal Reflux Disease, Hx Hiatal Hernia - ? 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 Sensory History: Reports: Hx Contacts or Glasses - Reading only Denies: Hx Hearing Aid Opthamlomology History: Reports: Hx Contacts or Glasses - Reading only Psychiatric History: Reports: Hx Anxiety, Hx Depression - XANAX PRN , RARELY USES Denies: Hx Panic Disorder - Cancer History Hx Chemotherapy: No Hx Radiation Therapy: No - Surgical History Surgery Procedure, Year, and Place: cath 2008,cholecystectomy 1970, vein stripped 2011, 2 c-sections, Bilateral knee arthroscopic, Hx Anesthesia Reactions: No - Immunization History Date of Tetanus Vaccine: unsure Date of Influenza Vaccine: 2013 Immunizations Up to Date: Yes Infectious Disease History: No Infectious Disease History: Denies: Traveled Outside the [place] in Last 30 Days - Family History Known Family History: Positive: Cardiac Disease, Diabetes, Other - kidney stone (sister) Negative: Hypertension - Social History Alcohol Use: None Hx Substance Use: No Substance Use Type: Reports: None Hx Tobacco Use: No Smoking Status (MU): Former Smoker Review of Systems Negative: Fever Positive: Other - body aches Negative: Rash Negative: Weakness All Other Systems Reviewed And Are Negative: Yes Physical Exam - Summary Physical Exam Summary: VITAL SIGNS: Reviewed. GENERAL: Patient is a well-developed and nourished female who is lying comfortable in the stretcher. Patient is not in any acute respiratory distress. HEAD AND FACE: No signs of trauma. No ecchymosis, hematomas or skull depressions. No sinus tenderness. EYES: PERRLA, EOMI x 2, No injected conjunctiva, no nystagmus. EARS: Hearing grossly intact. Ear canals and tympanic membranes are within normal limits. MOUTH: Oropharynx within normal limits. NECK: Supple, trachea is midline, no adenopathy, no JVD, no carotid bruit, no c- spine tenderness, neck with full ROM. CHEST: Symmetric, no tenderness at palpation LUNGS: Clear to auscultation bilaterally. No wheezing or crackles. CVS: Regular rate and rhythm, S1 and S2 present, no murmurs or gallops appreciated. ABDOMEN: Soft, non-tender. No signs of distention. No rebound no guarding, and no masses palpated. Bowel sounds are normal. EXTREMITIES: FROM in all major joints, no edema, no cyanosis or clubbing. NEURO: Alert and oriented x 3. No acute neurological deficits. Speech is normal and follows commands. Strength intact 5/5. No muscle weakness SKIN: Dry and warm; no rash Triage Information Reviewed: Yes Vital Signs On Initial Exam: Initial Vitals Temp Pulse Resp BP Pulse Ox 97.5 F 85 16 117/67 97 10/12/17 04:37 10/12/17 04:37 10/12/17 04:37 10/12/17 04:37 10/12/17 04:37 Vital Signs Reviewed: Yes - [place] Coma Scale Coma Scale Total: 15 Diagnostics - Vital Signs Vital Signs Temp Pulse Resp BP Pulse Ox 10/12/17 06:00 76 98 10/12/17 05:00 83 96 10/12/17 04:59 79 97 10/12/17 04:37 97.5 F 85 16 117/67 97 - Laboratory Lab Results: Lab Results 10/12/17 10/12/17 10/12/17 Range/Units 05:20 05:20 05:20 WBC 7.6 (3.5-10.8) 10^3/ul RBC 4.04 (4.0-5.4) 10^6/ul Hgb 11.8 L (12.0-16.0) g/dl Hct 35 (35-47) % MCV 87 (80-97) fL MCH 29 (27-31) pg MCHC 34 (31-36) g/dl RDW 13 (10.5-15) % Plt Count 249 (150-450) 10^3/ul MPV 8 (7.4-10.4) um3 Neut % (Auto) 66.6 (38-83) % Lymph % (Auto) 23.8 L (25-47) % [place] % (Auto) 7.5 (1-9) % Eos % (Auto) 1.6 (0-6) % Baso % (Auto) 0.5 (0-2) % Absolute Neuts (auto) 5.1 (1.5-7.7) 10^3/ul Absolute Lymphs (auto) 1.8 (1.0-4.8) 10^3/ul Absolute Monos (auto) 0.6 (0-0.8) 10^3/ul Absolute Eos (auto) 0.1 (0-0.6) 10^3/ul Absolute Basos (auto) 0 (0-0.2) 10^3/ul Absolute Nucleated RBC 0 10^3/ul Nucleated RBC % 0 Sodium 139 (133-145) mmol/L Potassium 3.3 L (3.5-5.0) mmol/L Chloride 107 (101-111) mmol/L Carbon Dioxide 26 (22-32) mmol/L Anion Gap 6 (2-11) mmol/L BUN 28 H (6-24) mg/dL Creatinine 0.66 (0.51-0.95) mg/dL Est GFR ( Amer) 114.5 (>60) Est GFR (Non-Af Amer) 89.1 (>60) BUN/Creatinine Ratio 42.4 H (8-20) Glucose 99 (70-100) mg/dL Lactic Acid 0.7 (0.5-2.0) mmol/L Calcium 9.3 (8.6-10.3) mg/dL Total Bilirubin 0.90 (0.2-1.0) mg/dL AST 14 (13-39) U/L ALT 15 (7-52) U/L Alkaline Phosphatase 75 (34-104) U/L Total Creatine Kinase 631 H (10-223) U/L C-Reactive Protein 31.00 H (< 5.00) mg/L Total Protein 6.6 (6.4-8.9) g/dL Albumin 3.8 (3.2-5.2) g/dL Globulin 2.8 (2-4) g/dL Albumin/Globulin Ratio 1.4 (1-3) TSH Pending Result Diagrams: 10/12/17 05:20 10/12/17 05:20 Lab Statement: Any lab studies that have been ordered have been reviewed, and results considered in the medical decision making process. - EKG 0512 Cardiac Rate: NL EKG Rhythm: Sinus Rhythm - 74 bpm EKG Interpretation: Normal axis. Normal interval. No ischemic changes. Flu Symptom Course/Dx - Course Assessment/Plan: Pt is a 66 y/o F with a recent dx with flu a week ago complaining of generalized body ache. No fever weakness or rash. Unremarkable exam. Cpk elevated. Mostlikely pt has viral myositis. Pt is stable and will be D/C home. An EKG reveals NSR 74 bpm.Normal axis. Normal interval. No ischemic changes. - Diagnoses Provider Diagnoses: Viral myositis Discharge - Discharge Plan Condition: Stable Disposition: HOME Prescriptions: traMADol TAB* [Ultram*] 50 mg PO Q6HR PRN #20 tab MDD 4 PRN Reason: Pain Patient Education Materials: Musculoskeletal Pain (ED) Referrals: Sheng Bush MD [Primary Care Provider] - 3 Days Additional Instructions: RETURN TO THE EMERGENCY DEPARTMENT FOR CHANGING OR WORSENING SYMPTOMS. The documentation as recorded by the Ti gorman Nilda accurately reflects the service I personally performed and the decisions made by Maria G wei Abdul, MD.
== END 2017-10-12 07:26 | disposition home or self-care (01) ==
LOC: ED 04:32
DX: M60.009 Infective myositis, unspecified site (principal); I10 Essential (primary) hypertension; K21.9 Gastro-esophageal reflux disease without esophagitis; K44.9 Diaphragmatic hernia without obstruction or gangrene; Z87.442 Personal history of urinary calculi; M19.90 Unspecified osteoarthritis, unspecified site; F41.9 Anxiety disorder, unspecified; F32.9 Major depressive disorder, single episode, unspecified; Z90.49 Acquired absence of other specified parts of digestive tract; Z88.1 Allergy status to other antibiotic agents; Z88.5 Allergy status to narcotic agent; Z88.0 Allergy status to penicillin; Z88.8 Allergy status to other drugs, medicaments and biological substances; Z87.891 Personal history of nicotine dependence
CPT/HCPCS: 36415; 80053; 82550; 83605; 84443; 85025; 86140; 93005; 96374; 96375; 99283; A9270-GY; J1885; J2270; J2405

== ENCOUNTER 2017-11-04 04:23 | Emergency (ER) | payer MEDICARE ==
[2017-11-04] MEDS ORDERED: Ondansetron INJ* 2 MG/ML VIAL IV ONE (07:45)
[2017-11-04] MEDS ORDERED: fentaNYL* 50 MCG/ML 2 ML VIAL (100 MCG VIAL) IV SLOW PU ONE (07:45)
[2017-11-04 08:04] LABS: ABS Basophils 0.1 10^3/ul (0-0.2); ABS Eosinophils 0.1 10^3/ul (0-0.6); ABS Lymphocytes 1.8 10^3/ul (1.0-4.8); ABS Monocytes 0.6 10^3/ul (0-0.8); ABS Neutrophils 5.8 10^3/ul (1.5-7.7); ABS Nucleated RBC 0 10^3/ul; Eosinophil % 1.4 % (0-6); Hematocrit 33 % (35-47); Hemoglobin 11.3 g/dl (12.0-16.0); Lymphocyte % 21.5 % (25-47); Mean Corpuscular HGB Conc 34 g/dl (31-36); Mean Corpuscular Hemoglobin 30 pg (27-31); Mean Corpuscular Volume 86 fL (80-97); Mean Platelet Volume 8 um3 (7.4-10.4); Nucleated Red Blood Cells % 0; Platelet Count 309 10^3/ul (150-450); Red Blood Count 3.82 10^6/ul (4.0-5.4); Red Cell Distribution Width 13 % (10.5-15); White Blood Count 8.5 10^3/ul (3.5-10.8)
[2017-11-04 08:14] LABS: EGFR Non-African American 95.7 (>60)
[2017-11-04] MEDS ORDERED: NS 0.9% 1000 ML* 1,000 ML IV ONE (09:10)
[2017-11-04 10:04] VITALS: BP 155/82
--- NOTE | 2017-11-04 17:31 | ED ---
Ti Rosa Nilda, scribed for Roby Graf MD on 11/04/17 at 0800 . Complex/Multi-Sys Presentation - HPI Summary HPI Summary: This patient is a 66 year old F presenting to [facility] accompanied by with a chief complaint of constant diffuse muscle pain and weakness (bilat UE and around knees) for the past few weeks. She states the pain has worsened. The patient rates the aching pain is currently 8/10 in severity in arms and at a maximum 10/10. Symptoms aggravated by movement, and alleviated by nothing including Advil and Cyclobenzaprine. Patient reports difficulty with getting out of chairs, and slower ambulation. Patient denies SOB. Patient states she was Dx with flu on 10/12/17 followed by myositis at [facility]. She states she is unable to get out of bed and out of chairs by herself. - History Of Current Complaint Chief Complaint: EDGeneral Time Seen by Provider: 11/04/17 04:43 Hx Obtained From: Patient Timing: Constant Severity Currently: Mild Character: Dull - Aching Aggravating Factor(s): movement Alleviating Factor(s): nothing including Advil and Cyclobenzaprine. Associated Signs And Symptoms: Positive: Other - Muscle pain and weakness ( bilat UE and around knee), difficulty with getting out of chairs, and slower ambulation; negative SOB - Allergies/Home Medications Allergies/Adverse Reactions: Allergies Allergy/AdvReac Type Severity Reaction Status Date / Time MS Celecoxib [From Celebrex] Allergy Intermediate Fatigue Verified 11/04/17 04: 35 MS Amoxicillin Allergy GI Upset Verified 11/04/17 04:35 [From Augmentin] MS Cephalexin [From Keflex] Allergy Dizziness Verified 11/04/17 04:35 MS Ciprofloxacin [From Cipro] Allergy Dizziness Verified 11/04/17 04:35 MS Clarithromycin Allergy Nausea Verified 11/04/17 04:35 [From Biaxin] MS Clavulanic Acid Allergy GI Upset Verified 11/04/17 04:35 [From Augmentin] MS Hydrocodone [Hydrocodone] Allergy Nausea Verified 11/04/17 04:35 MS Penicillins [Penicillins] Allergy Itching Verified 11/04/17 04:35 MS Cefuroxime [From Ceftin] AdvReac Nausea And Verified 02/07/18 04:35 Vomiting PMH/Surg Hx/FS Hx/Imm Hx Endocrine/Hematology History: Denies: Hx Diabetes Cardiovascular History: Reports: Hx Hypertension - ON MEDS, Other Cardiovascular Problems/Disorders - CLEAN CARDIAC CATHETERIZATION, HX OF GERD ALSO Denies: Hx Pacemaker/ICD GI History: Reports: Hx Gastroesophageal Reflux Disease, Hx Hiatal Hernia - ? 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 Sensory History: Reports: Hx Contacts or Glasses - Reading only Denies: Hx Hearing Aid Opthamlomology History: Reports: Hx Contacts or Glasses - Reading only Psychiatric History: Reports: Hx Anxiety, Hx Depression - XANAX PRN , RARELY USES Denies: Hx Panic Disorder - Cancer History Hx Chemotherapy: No Hx Radiation Therapy: No - Surgical History Surgery Procedure, Year, and Place: cath 2008,cholecystectomy 1969, vein stripped 2011, 2 c-sections, Bilateral knee arthroscopic, Hx Anesthesia Reactions: No - Immunization History Date of Tetanus Vaccine: unsure Date of Influenza Vaccine: 2012 Infectious Disease History: No Infectious Disease History: Denies: Traveled Outside the [place] in Last 30 Days - Family History Known Family History: Positive: Cardiac Disease, Diabetes, Other - kidney stone (sister) Negative: Hypertension - Social History Alcohol Use: None Hx Substance Use: No Substance Use Type: Reports: None Hx Tobacco Use: No Smoking Status (MU): Former Smoker Review of Systems Negative: Shortness Of Breath Positive: Other - Muscle pain bilat UE and around knee weakness, difficulty with getting out of chairs, and slower ambulation All Other Systems Reviewed And Are Negative: Yes Physical Exam - Summary Physical Exam Summary: VITAL SIGNS: Reviewed. GENERAL: Patient is a well-developed and nourished female who is lying comfortable in the stretcher. Patient is not in any acute respiratory distress. HEAD AND FACE: No signs of trauma. No ecchymosis, hematomas or skull depressions. No sinus tenderness. EYES: PERRLA, EOMI x 2, No injected conjunctiva, no nystagmus. EARS: Hearing grossly intact. Ear canals and tympanic membranes are within normal limits. MOUTH: Oropharynx within normal limits. NECK: Supple, trachea is midline, no adenopathy, no JVD, no carotid bruit, no c- spine tenderness, neck with full ROM. CHEST: Symmetric, no tenderness at palpation LUNGS: Clear to auscultation bilaterally. No wheezing or crackles. CVS: Regular rate and rhythm, S1 and S2 present, no murmurs or gallops appreciated. ABDOMEN: Soft, non-tender. No signs of distention. No rebound no guarding, and no masses palpated. Bowel sounds are normal. EXTREMITIES: FROM in all major joints, no edema, no cyanosis or clubbing. NEURO: Alert and oriented x 3. No acute neurological deficits. Speech is normal and follows commands. SKIN: Dry and warm Triage Information Reviewed: Yes Vital Signs On Initial Exam: Initial Vitals Temp Pulse Resp BP Pulse Ox 98.7 F 86 16 130/89 95 11/04/17 04:25 11/04/17 04:25 11/04/17 04:25 11/04/17 04:25 11/04/17 04:25 Vital Signs Reviewed: Yes Diagnostics - Vital Signs Vital Signs Temp Pulse Resp BP Pulse Ox 11/04/17 04:25 98.7 F 86 16 130/89 95 - Laboratory Lab Results: Lab Results 11/04/17 11/04/17 11/04/17 Range/Units 07:52 07:52 07:52 WBC 8.5 (3.5-10.8) 10^3/ul RBC 3.82 L (4.0-5.4) 10^6/ul Hgb 11.3 L (12.0-16.0) g/dl Hct 33 L (35-47) % MCV 86 (80-97) fL MCH 30 (27-31) pg MCHC 34 (31-36) g/dl RDW 13 (10.5-15) % Plt Count 309 (150-450) 10^3/ul MPV 8 (7.4-10.4) um3 Neut % (Auto) 68.9 (38-83) % Lymph % (Auto) 21.5 L (25-47) % [place] % (Auto) 7.6 (1-9) % Eos % (Auto) 1.4 (0-6) % Baso % (Auto) 0.6 (0-2) % Absolute Neuts (auto) 5.8 (1.5-7.7) 10^3/ul Absolute Lymphs (auto) 1.8 (1.0-4.8) 10^3/ul Absolute Monos (auto) 0.6 (0-0.8) 10^3/ul Absolute Eos (auto) 0.1 (0-0.6) 10^3/ul Absolute Basos (auto) 0.1 (0-0.2) 10^3/ul Absolute Nucleated RBC 0 10^3/ul Nucleated RBC % 0 ESR Pending Sodium 137 (133-145) mmol/L Potassium 3.3 L (3.5-5.0) mmol/L Chloride 106 (101-111) mmol/L Carbon Dioxide 25 (22-32) mmol/L Anion Gap 6 (2-11) mmol/L BUN 14 (6-24) mg/dL Creatinine 0.62 (0.51-0.95) mg/dL Est GFR ( Amer) 123.1 (>60) Est GFR (Non-Af Amer) 95.7 (>60) BUN/Creatinine Ratio 22.6 H (8-20) Glucose 95 (70-100) mg/dL Lactic Acid 1.0 (0.5-2.0) mmol/L Calcium 9.1 (8.6-10.3) mg/dL Magnesium 1.9 (1.9-2.7) mg/dL Total Bilirubin 0.80 (0.2-1.0) mg/dL AST 12 L (13-39) U/L ALT 10 (7-52) U/L Alkaline Phosphatase 87 (34-104) U/L Total Creatine Kinase 545 H (10-223) U/L C-Reactive Protein 59.15 H (< 5.00) mg/L Total Protein 6.4 (6.4-8.9) g/dL Albumin 3.6 (3.2-5.2) g/dL Globulin 2.8 (2-4) g/dL Albumin/Globulin Ratio 1.3 (1-3) Result Diagrams: 11/04/17 07:52 11/04/17 07:52 Lab Statement: Any lab studies that have been ordered have been reviewed, and results considered in the medical decision making process. Re-Evaluation - Re-Evaluation First Eval Re-Evaluation Time: 09:17 Change: Improved Comment: Pt is feeling better and agrees to D/C with pain medications and follow up with Dr. Rocha. Complex Multi-Symp Course/Dx Assessment/Plan: This patient is a 66 year old F presenting to [facility] accompanied by with a chief complaint of constant diffuse muscle pain and weakness (bilat UE and around knees) for the past few weeks. She states the pain has worsened. The patient rates the aching pain is currently 8/10 in severity in arms and at a maximum 10/10. Symptoms aggravated by movement, and alleviated by nothing including Advil and Cyclobenzaprine. Patient reports difficulty with getting out of chairs, and slower ambulation. Patient denies SOB. Patient states she was Dx with flu on 10/12/17 followed by myositis at [facility]. She states she is unable to get out of bed and out of chairs by herself. Test results show slight anemia, potassium of 3.3 for which he was given potassium chloride. CPK of 5.5 and CRP of 59.1. In ED Course pt was given morphine for pain. I discussed the case with Dr. Rocha who recommends to D/C pt home with pain medications and follow up at his office for a possible EMG. The pt is hemodynamically stable, alert and oriented x3. - Diagnoses Differential Diagnoses/HQI/PQRI: Urinary Tract Infection, Other - Myositis, musculoskeletal pain, Provider Diagnoses: Myositis, Musculoskeletal pain - Physician Notifications Discussed Care Of Patient With: Oc Rocha - Neurology Time Discussed With Above Provider: 08:40 Instructed by Provider To: Other - Recommends following the CPK and giving pain medication. If patient is able to ambulate than she can be D/C with pain medications and agrees to see pt in office. Discharge - Discharge Plan Condition: Stable Disposition: HOME Prescriptions: traMADol TAB* [Ultram*] 50 mg PO Q6HR PRN #12 tab MDD 4 PRN Reason: Pain Patient Education Materials: Musculoskeletal Pain (ED) Referrals: Oc Rocha MD [Medical Doctor] - As Soon As Possible Additional Instructions: Set up an appointment with Dr. Rocha. RETURN TO THE EMERGENCY DEPARTMENT FOR CHANGING OR WORSENING SYMPTOMS. The documentation as recorded by the Ti gorman Nilda accurately reflects the service I personally performed and the decisions made by , Roby Graf MD.
== END 2017-11-04 10:11 | disposition home or self-care (01) ==
LOC: ED 04:23
DX: M60.9 Myositis, unspecified (principal); M79.1 Myalgia; Z87.891 Personal history of nicotine dependence; Z86.79 Personal history of other diseases of the circulatory system; Z87.19 Personal history of other diseases of the digestive system; Z88.0 Allergy status to penicillin
CPT/HCPCS: 36415; 80053; 82550; 83605; 83735; 85025; 85652; 86140; 96374; 96375; 99284; J2405; J3010

== ENCOUNTER 2018-03-04 10:51 | Emergency (ER) | payer MEDICARE ==
[2018-03-04] MEDS ORDERED: diPHENhydraMINE IV* 50 MG/ML 1 ml VIAL (BENADRYL) IV ONE (11:08)
[2018-03-04] MEDS ORDERED: Metoclopramide IV* 5 MG/ML 2 ML VIAL IV ONE (11:08)
[2018-03-04] MEDS ORDERED: NS 0.9% 1000 ML* 1,000 ML IV ONE (11:08)
[2018-03-04 11:47] LABS: ABS Basophils 0 10^3/ul (0-0.2); ABS Eosinophils 0.1 10^3/ul (0-0.6); ABS Lymphocytes 1.2 10^3/ul (1.0-4.8); ABS Monocytes 0.4 10^3/ul (0-0.8); ABS Neutrophils 7.1 10^3/ul (1.5-7.7); ABS Nucleated RBC 0 10^3/ul; Eosinophil % 0.8 % (0-6); Hematocrit 37 % (35-47); Hemoglobin 12.1 g/dl (12.0-16.0); Mean Corpuscular HGB Conc 33 g/dl (31-36); Mean Corpuscular Hemoglobin 29 pg (27-31); Mean Corpuscular Volume 88 fL (80-97); Mean Platelet Volume 8.2 um3 (7.4-10.4); Nucleated Red Blood Cells % 0; Platelet Count 220 10^3/ul (150-450); Red Cell Distribution Width 15 % (10.5-15); White Blood Count 8.8 10^3/ul (3.5-10.8)
[2018-03-04 12:06] LABS: EGFR Non-African American 72.2 (>60)
--- NOTE | 2018-03-04 14:33 | ED ---
Seven Rosa Stephanie, scribed for Santos Posada MD on 03/04/18 at 1124 . GI/ HPI - HPI Summary HPI Summary: The pt is a 67 y/o F presenting to the ED with c/o N/V that began at 10:30 today. Symptoms include diaphoresis and lightheadedness. The pt denies diarrhea , LOC, dizziness, abd pain, weakness, speech difficulties and QUEEN. She is on 5 mg prednisone daily. The pt states her symptoms began abruptly. - History of Current Complaint Chief Complaint: EDDizziness Time Seen by Provider: 03/04/18 10:54 Stated Complaint: DIZZINESS Hx Obtained From: Patient Onset/Duration: Started Hours Ago - 1, Still Present Timing: Intermittent Current Severity: Moderate Pain Intensity: 0 Associated Signs and Symptoms: Positive: Negative - weakness, speech difficulties, QUEEN, Nausea, Vomiting, Lightheadedness, Other: - diaphoresis. Negative: Dizziness, Diarrhea, Abdominal Pain Aggravating Factor(s): Nothing Alleviating Factor(s): Nothing - Additional Pertinent History Primary Care Physician: [id number] - Allergy/Home Medications Allergies/Adverse Reactions: Allergies Allergy/AdvReac Type Severity Reaction Status Date / Time celecoxib [From Celebrex] Allergy Intermediate Fatigue Verified 03/04/18 11:11 amoxicillin Allergy GI Upset Verified 03/04/18 11:11 cefuroxime Allergy Nausea And Verified 03/04/18 11:11 Vomiting cephalexin Allergy Dizziness Verified 03/04/18 11:11 ciprofloxacin Allergy Dizziness Verified 03/04/18 11:11 clarithromycin Allergy Nausea Verified 03/04/18 11:11 clavulanic acid Allergy GI Upset Verified 03/04/18 11:11 [From Augmentin] hydrocodone Allergy Nausea Verified 03/04/18 11:11 Penicillins Allergy Itching Verified 03/04/18 11:11 Home Medications: Home Medications Losartan TAB* [Cozaar TAB*] 25 mg PO DAILY 03/04/18 [History Confirmed 03/04/18] Methotrexate TAB* 15 mg PO WEEKLY 03/04/18 [History Confirmed 03/04/18] PMH/Surg Hx/FS Hx/Imm Hx Endocrine/Hematology History: Denies: Hx Diabetes Cardiovascular History: Reports: Hx Hypertension - ON MEDS, Other Cardiovascular Problems/Disorders - CLEAN CARDIAC CATHETERIZATION, HX OF GERD ALSO Denies: Hx Pacemaker/ICD GI History: Reports: Hx Gastroesophageal Reflux Disease, Hx Hiatal Hernia - ? 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 Sensory History: Reports: Hx Contacts or Glasses - Reading only Denies: Hx Hearing Aid Opthamlomology History: Reports: Hx Contacts or Glasses - Reading only Psychiatric History: Reports: Hx Anxiety, Hx Depression - XANAX PRN , RARELY USES Denies: Hx Panic Disorder - Cancer History Hx Chemotherapy: No Hx Radiation Therapy: No - Surgical History Surgery Procedure, Year, and Place: cath 2008,cholecystectomy 1969, vein stripped 2011, 2 c-sections, Bilateral knee arthroscopic, Hx Anesthesia Reactions: No - Immunization History Date of Tetanus Vaccine: unsure Date of Influenza Vaccine: 2013 Infectious Disease History: No Infectious Disease History: Denies: Traveled Outside the [place] in Last 30 Days - Family History Known Family History: Positive: Cardiac Disease, Diabetes, Other - kidney stone (sister) Negative: Hypertension - Social History Occupation: Employed Full-time Lives: With Family Alcohol Use: None Hx Substance Use: No Substance Use Type: Reports: None Hx Tobacco Use: No Smoking Status (MU): Former Smoker Review of Systems Positive: Skin Diaphoresis. Negative: Fever Positive: Vomiting, Nausea. Negative: Abdominal Pain, Diarrhea Neurological: Negative - LOC, dizziness, Other - lightheadedness Negative: Headache, Weakness, Slurred Speech All Other Systems Reviewed And Are Negative: Yes Physical Exam - Summary Physical Exam Summary: Appearance: Well appearing, no pain distress Skin: warm, dry, reflects adequate perfusion Head/face: normal Eyes: EOMI, RICHARD ENT: normal Neck: supple, non-tender Respiratory: CTA, breath sounds present Cardiovascular: RRR, pulses symmetrical and strong Abdomen: non-tender, soft, no pulsatile masses in abd Bowel Sounds: present Musculoskeletal: normal, strength/ROM intact Neuro: normal, sensory motor intact, A&Ox3 Triage Information Reviewed: Yes Vital Signs On Initial Exam: Initial Vitals Temp Pulse Resp BP Pulse Ox 97.8 F 85 22 165/103 97 03/04/18 10:56 03/04/18 10:56 03/04/18 10:56 03/04/18 10:56 03/04/18 10:56 Vital Signs Reviewed: Yes Diagnostics - Vital Signs Vital Signs Temp Pulse Resp BP Pulse Ox 03/04/18 11:09 77 28 168/95 95 03/04/18 10:56 97.8 F 85 22 165/103 97 - Laboratory Lab Results: Lab Results 03/04/18 03/04/18 Range/Units 11:34 11:34 WBC 8.8 (3.5-10.8) 10^3/ul RBC 4.20 (4.0-5.4) 10^6/ul Hgb 12.1 (12.0-16.0) g/dl Hct 37 (35-47) % MCV 88 (80-97) fL MCH 29 (27-31) pg MCHC 33 (31-36) g/dl RDW 15 (10.5-15) % Plt Count 220 (150-450) 10^3/ul MPV 8.2 (7.4-10.4) um3 Neut % (Auto) 80.4 (38-83) % Lymph % (Auto) 14.0 L (25-47) % [place] % (Auto) 4.4 (0-7) % Eos % (Auto) 0.8 (0-6) % Baso % (Auto) 0.4 (0-2) % Absolute Neuts (auto) 7.1 (1.5-7.7) 10^3/ul Absolute Lymphs (auto) 1.2 (1.0-4.8) 10^3/ul Absolute Monos (auto) 0.4 (0-0.8) 10^3/ul Absolute Eos (auto) 0.1 (0-0.6) 10^3/ul Absolute Basos (auto) 0 (0-0.2) 10^3/ul Absolute Nucleated RBC 0 10^3/ul Nucleated RBC % 0 Sodium 139 (139-145) mmol/L Potassium 3.7 (3.5-5.0) mmol/L Chloride 107 (101-111) mmol/L Carbon Dioxide 24 (22-32) mmol/L Anion Gap 8 (2-11) mmol/L BUN 20 (6-24) mg/dL Creatinine 0.79 (0.51-0.95) mg/dL Est GFR ( Amer) 92.8 (>60) Est GFR (Non-Af Amer) 72.2 (>60) BUN/Creatinine Ratio 25.3 H (8-20) Glucose 115 H (70-100) mg/dL Calcium 8.8 (8.6-10.3) mg/dL Troponin I 0.00 (<0.04) ng/mL TSH 0.75 (0.34-5.60) mcIU/mL Result Diagrams: 03/04/18 11:34 03/04/18 11:34 Lab Statement: Any lab studies that have been ordered have been reviewed, and results considered in the medical decision making process. Re-Evaluation - Re-Evaluation First Eval Re-Evaluation Time: 12:48 Change: Improved - The pt has been up and moving and states she is feeling better. Second Eval Re-Evaluation Time: 13:20 Change: Unchanged - ED physician discussed plan of discharge with the pt and the pt understands and agrees. GIGU Course/Dx - Course Course Of Treatment: Abrupt onset of symptoms where she may have been vertiginous but it's difficult to tell. No rotational movement at this time. Abrupt vomiting. [place] lightheaded and near syncopal. Blood pressures, heart rate etc. been normal here. No palpitations or arrhythmia noted. Treated symptomatically for possible vertigo with relief. Recently did have some symptoms in her ear which was treated with only a day or 2 of Cortisporin. Ears are now clear. Discharged in good condition to follow up closely with her primary care physician. - Diagnoses Differential Diagnoses - Female: Other - Near syncope, palpitations, vasovagal reaction, vertigo Provider Diagnoses: Near syncope, Acute vomiting, Dizziness Discharge - Sign-Out/Discharge Documenting (check all that apply): Discharge/Admit/Transfer - Discharge - Discharge Plan Condition: Improved Disposition: HOME Prescriptions: Meclizine TAB* [Antivert 12.5 TAB*] 25 mg PO TID PRN #30 tab PRN Reason: Dizziness Ondansetron [Zofran Odt] 4 mg PO TID PRN #12 tab.rapdis PRN Reason: Nausea Patient Education Materials: Near Syncope (ED) Referrals: Sheng Bush MD [Primary Care Provider] - 3 Days Additional Instructions: Stay well-hydrated. Do not drive until well. Call your doctor today to follow- up. Return immediately with palpitation, chest pain, recurrence of symptoms, worse or other concerns. - Billing Disposition and Condition Condition: STABLE Disposition: Home The documentation as recorded by the Seven gorman Stephanie accurately reflects the service I personally performed and the decisions made by me, Santos Posada MD.
[2018-03-04 15:04] VITALS: BP 144/96
== END 2018-03-04 15:02 | disposition home or self-care (01) ==
LOC: ED 10:51
DX: R55 Syncope and collapse (principal); R11.2 Nausea with vomiting, unspecified; R42 Dizziness and giddiness; I10 Essential (primary) hypertension; M19.90 Unspecified osteoarthritis, unspecified site; Z79.899 Other long term (current) drug therapy; Z87.442 Personal history of urinary calculi; Z87.891 Personal history of nicotine dependence; Z88.3 Allergy status to other anti-infective agents; Z88.0 Allergy status to penicillin; Z88.8 Allergy status to other drugs, medicaments and biological substances; Z88.5 Allergy status to narcotic agent
CPT/HCPCS: 36415; 80048; 84443; 84484; 85025; 96361; 96374; 96375; 99282; J1200; J2765

== ENCOUNTER 2018-07-06 02:47 | Emergency (ER) | payer MEDICARE ==
--- OUTSIDE RECORDS SUMMARY | 2018-07-06 03:02 | XMS REPORT ---
:1950 External Reference #:[id number] Author Organization [employer] Address [address] [facility] [place] [address] [place] [address] Phone [phone] Care Team Providers Name Role Phone Hayley Bush MD Primary Care Physician Unavailable Payers Type Date Identification Numbers Payment Provider Subscriber Health Maintenance Effective: Policy Number: Medicare Earl Alex Organization (O) 09/28/2016 [id number] [facility] Group Number: [id number] [address] PayID: [id number] CASSIE Guzman [id number] Medigap Part B Expires: 09/27/2016 Policy Number: [id number] Medicare Shayy Alex PayID: [id number] [address] [place] [address] Medigap Part B Effective: 09/28/2013 Policy Number: BS Facets Shayy Ariasgwyn [id number] Expires: 12/26/2013 PayID: [id number] [address] [address] [place] Guzman [address] Problems Date Description Provider Status Onset: 05/20/2013 Mitral valve disorder [facility] Active Onset: 05/20/2013 Palpitations [facility] Schedule Active Onset: 05/25/2013 Multiple joint pain Leopoldo Jauregui M.D. Active Onset: 05/25/2013 Immunological Findings Nonspec Leopoldo Jauregui M.D. Active Other & Unspec Onset: 05/25/2013 Localized, primary osteoarthritis Leopoldo Endo, M.D. Active of the lower leg Onset: 08/19/2013 Obesity Nestor Rogers M.D. Active Onset: 03/30/2014 Hypokalemia Nestor Rogers M.D. Active Onset: 03/23/2017 Localized, primary osteoarthritis Shonda Cuellar M.D. Active of the pelvic region and thigh Onset: 03/23/2017 Trochanteric bursitis Shonda Cuellar M.D. Active Onset: 03/23/2017 Gluteal tendinitis Shonda Cuellar M.D. Active Onset: 06/15/2017 Localized, primary osteoarthritis Shonda Cuellar M.D. 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 Cigarette Use Never Smoked Cigarettes ETOH Use Denies alcohol use Recreational Drug Use Denies Drug Use Smoking Patient has never smoked Daily Caffeine 1 Pepsi Daily Daily Caffeine Consumes on average 32oz of soda per day Exercise Type/Frequency Exercises regularly Allergies, Adverse Reactions, Alerts Date Description Reaction Status Severity Comments 10/02/2008 Ceftin active 10/02/2008 Cipro active 10/02/2008 Keflex active 10/02/2008 Celebrex active 03/23/2017 Penicillin active 10/14/2017 Amoxicillin active 10/14/2017 Hydrocodone active 10/14/2017 Clarithromycin active 10/14/2017 Clavulanic Acid active Medications Medication Date Status Form Strength Qnty SIG Indications Ordering Provider Folic Acid 07/02 Active Tablets 1mg 90tab 1 by mouth Z79.899 Zsofi s every day Phu, [employer] Methotrexate 05/18 Active Tablets 2.5mg 20tab 5 tbs by M35.3 Zsofi s mouth every Phu, week [employer] Prednisone 05/18 Active Tablets 1mg 180ta 4 tabs by M35.3 Zsofi bs mouth daily Phu, for 4 [employer] weeks, 3 tabs daily for 4 weeks, 2 tabs daily for 4 weeks, 1 tab fdaily or 4 weeks Folic Acid 12/28 Active Tablets 1mg 90tab take one s capsule/tab [place], let daily M.D. by mouth Prednisone 12/03 Active Tablets 5mg 90tab take one M35.3 Zsofia s tablet Phu, daily for 4 [employer] weeks Caltrate 600+D 12/03 Active Chewtabs 600-800mg 180un take one -Unit its capsule/tab [place], let by M.D. mouth twice daily, avoid yellow dye Ranitidine HCL 05/18 Active Capsules 150mg 60cap 1 po bid s Ordering Provider Xanax 05/18 Active Tablets 0.25mg 30tab 09/29 -1 s tablet po Ordering tid prn Provider anxiety Vitamin B 12 Active Tablets 1000mcg/M 1ml Im q Unknown L month Losartan Potassium Active Tablets 25mg 1 by mouth every day Potassium Active 10Meq 2 tabs po Unknown qd Meclizine HCL Active Tablets 12.5mg 2 tabs 3 Swetha /0000 times a day IV , Santos (pt has not S, M.D. taken) Ondansetron Active Tablets 4mg as needed Swetha /0000 Dispers (pt has not IV , Santos taken) S, M.D. Methotrexate 12/28 Hx Tablets 2.5mg 30tab take 6 M35.3 s capsules/ta [place], - blets by M.D. 05/18 mouth once weekly, do not start until you finish the [facility] Prednisone 11/30 Hx Tablets 10mg 60tab take 2 M35.3 s capsule/tab [place], - let daily M.D. 12/03 by mouth /2017 Prednisone 11/09 Hx Tablets 10mg 90tab take 4 tabs M35.3 s by mouth [place], - daily for 4 M.D. 11/30 days then tabs daily for 4 days then 2 tabs for 4 days then 1 tab for 4 days then d/c Meloxicam 03/23 Hx Tablets 15mg 14tab 1 by mouth M16.12 s every day Cinthia Cuellar M.D. 10/13 Coq-10 12/11 Hx Capsules 100mg 60cap 2 tablet s daily F. - Sue, 04/28.D. Klor-Con 10 12/02 Hx Tablets 10Meq 60tab 2 by mouth ER s every day F. Sue, 03/22.D. Potassium Chloride 10/24 Hx Packet 20Meq 30uni 1 by mouth ts every day F. Sue, 12/02 M.D. Pravastatin Sodium 10/24 Hx Tablets 20mg 30tab 1 po E78.5 s 3x/week qhs F. - ([facility]) (on , 11/23 hold as of M.D. /201511/23/15) Potassium Chloride 01/15 Hx Packet 20Meq 30Pac 1 by mouth kets every day . - Sue, 10/24.D. Potassium 11/14 Hx Powder 20Meq 30Pac 1 po qd Qutayb kets S. - [facility] 01/15 , .D. Aldactone 09/27 Hx Tablets 25mg 30tab 1/2 po qd s FDinora Sue, 10/27 M.D. Spironolactone 09/08 Hx Tablets 25mg 30tab 1 po qd s (not yet Ordering - started Provider 09/2609/07/13) Hydrocodone/Acetam 08/29 Hx Tablets 5-325mg 40tab 1-2 po qid Rafy inophen /2012 s prn pain Cinthia Chris M.DDinora 10/27 Triamterene/Hydroc 08/14 Hx Capsules 37.5-25mg 15cap 1 po qd Unknown hlorothiazide /2012 s - 09/08 Klor-Con M20 08/02 Hx Tablets 20Meq 60tab 1 po bid ER s FDinora Rogers, 08/19 M.D. Ultram ER 07/15 Hx Tablets 100mg ER 24HR Darion, - M.DDinora 08/29 Ultram 07/15 Hx Tablets 50mg 60tab 1-2 tablets s q4-6 hours Aries, - prn pain M.D. 08/29 [place] 07/01 Hx Tablets 5-325mg 60tab take 1-2 s tab po tid Aries, - prn pain M.D. 08/19 Nabumetone 05/27 Hx Tablets 500mg 60tab 1 po bid 719.49 Leopoldo /2012 myron Jauregui, - M.DDinora 07/07 Diclofenac Sodium 05/25 Hx Tablets 75mg 60tab 1 tab by Gemini Mina DR /2012 DR sanches mouth twice Juventino, - a day M.D. 05/27 Effervescent 05/19 Hx Tablets 25Meq 30tab 1 po qday Nestor Potassium Yvan Rogers, 08/02 Osman.Morgan Toprol XL 05/18 Hx Tablets 25mg 30tab 1/2 po qd Other ER 24HR s Ordering - Provider 05/18 Hydrochlorothiazid 05/18 Hx Capsules 12.5mg 30cap 1 po qd Other s Ordering - Provider 08/19 Vitamin B12 TR 05/18 Hx Inj a monthly Ordering - Provider 03/29 Effervescent 05/18 Hx Tablets 20Meq 7tabs 1 po qday Nestor Potassium Yvan Rogers, 05/19 M.Morgan Kdur 09/26 Hx tablets 20meq 7unit 1 po qd x 1 Qutaybeh s week SDinora - Maghaydah 05/18 , M.DDinora /2012 Klor-Con Hx Packet 20Meq 1 po qd Unknown / - 09/08 Spironolactone/Hyd Hx Tablets 25-25mg 1 po qd Unknown rochlorothiazide /0000 - 09/27 Spironolactone Hx Tablets 25mg 90tab 1/2 po qd Unknown /0000 s 09/30/14 pt - held 10/06 ly Advil Hx Capsules 200mg 200ca 2 caps po Unknown /0000 ps prn - 03/22 Atorvastatin Hx Tablets 10mg 1 by mouth Unknown Calcium /0000 every day - 10/02 Crestor Hx Tablets 5mg 90tab 1 tablet Nestor /0000 s daily Kamran Rogers, 04/28 M.D. Coq-10 Hx 200mg 30uni 1 tablet Nestor /0000 ts daily Kamran Rogers, 12/11 M.D. Cyclobenzaprine Hx Tablets 10mg take 1 Unknown HCL /0000 tablet by - mouth three 11/04 times a day /2017 as Needed Cyclobenzaprine Hx Tablets 10mg take 1 Unknown HCL /0000 tablet by - mouth three 10/22 times a day /2017 as Needed Tramadol HCL Hx Tablets 50mg 1-2 tablets Unknown /0000 every 6 - hours as 03/17 Azithromycin Hx Tablets 250mg 2 tabs by Unknown /0000 mouth on - day 1; 1 01/14 tab by /2018 mouth every day on days 2-5 Medications Administered in Office Medication Date Status Form Strength Qnty SIG Indications Ordering Provider Depomedrol Administered Injection Shonda 40MG Enrique Cuellar M.D. Depomedrol Administered Injection Shonda 40MG 017 Rasheeda Cuellar Depomedrol Administered Injection Rafy 80MG 013 Rasheeda Chris Celestone 3 mg Administered Injection Nory and 3mg 012 Allison acosta M.D. Vital Signs Date Vital Result Comment 07/02/2018 Height 63 inches 5'3" Weight 164.12 lb Heart Rate 96 /min BP Systolic 112 mmHg BP Diastolic 72 mmHg Pain Level 1 O2 % BldC Oximetry 97 % BMI (Body Mass Index) 29.1 kg/m2 06/18/2018 Height 63 inches 5'3" Weight 166.00 lb BP Systolic 116 mmHg BP Diastolic 69 mmHg Respiratory Rate 16 /min Pain Level 5 BMI (Body Mass Index) 29.4 kg/m2 05/19/2018 Height 63 inches 5'3" Weight 166.00 lb stated weight done yesterday Heart Rate 68 /min BP Systolic 128 mmHg left arm reg cuff BP Diastolic 78 mmHg left arm reg cuff BMI (Body Mass Index) 29.4 kg/m2 Ejection Fraction 55-60% echo 04/05/18 05/18/2018 Height 63 inches 5'3" Weight 164.38 lb Heart Rate 96 /min BP Systolic 124 mmHg BP Diastolic 80 mmHg O2 % BldC Oximetry 98 % BMI (Body Mass Index) 29.1 kg/m2 04/15/2018 Height 63 inches 5'3" Weight 166.12 lb Heart Rate 100 /min BP Systolic Sitting 119 mmHg BP Diastolic Sitting 70 mmHg Respiratory Rate 14 /min Pain Level 1 BMI (Body Mass Index) 29.4 kg/m2 03/19/2018 Height 63 inches 5'3" Weight 166.00 lb with shoes Heart Rate 86 /min BP Systolic Sitting 130 mmHg Lue reg cuff BP Diastolic Sitting 78 mmHg Lue reg cuff BP Systolic Standing 138 mmHg Lue reg cuff BP Diastolic Standing 84 mmHg Lue reg cuff Respiratory Rate 15 /min BMI (Body Mass Index) 29.4 kg/m2 Ejection Fraction 55-60% 05/20/13-echo 03/01/2018 Height 63 inches 5'3" Weight 167.00 lb Heart Rate 88 /min BP Systolic Sitting 142 mmHg BP Diastolic Sitting 82 mmHg Respiratory Rate 14 /min Pain Level 1 BMI (Body Mass Index) 29.6 kg/m2 01/14/2018 Height 63 inches 5'3" Weight 165.00 lb Heart Rate 100 /min BP Systolic Sitting 138 mmHg BP Diastolic Sitting 80 mmHg Respiratory Rate 14 /min Pain Level 2 BMI (Body Mass Index) 29.2 kg/m2 12/30/2017 Height 63 inches 5'3" Weight 163.12 lb Heart Rate 92 /min BP Systolic Sitting 132 mmHg BP Diastolic Sitting 82 mmHg Respiratory Rate 14 /min O2 % BldC Oximetry 95 % BMI (Body Mass Index) 28.9 kg/m2 Neck Circumference in inches 15.75 12/28/2017 Height 63 inches 5'3" Heart Rate 106 /min BP Systolic Sitting 133 mmHg BP Diastolic Sitting 88 mmHg Respiratory Rate 18 /min O2 % BldC Oximetry 95 % 12/03/2017 Height 63 inches 5'3" Weight 161.00 lb Heart Rate 86 /min BP Systolic Sitting 149 mmHg BP Diastolic Sitting 86 mmHg Respiratory Rate 14 /min Pain Level 0 BMI (Body Mass Index) 28.5 kg/m2 11/17/2017 Height 63 inches 5'3" Weight 159.12 lb Heart Rate 72 /min BP Systolic Sitting 140 mmHg BP Diastolic Sitting 88 mmHg Respiratory Rate 16 /min BMI (Body Mass Index) 28.2 kg/m2 11/09/2017 Height 63 inches 5'3" Weight 162.00 lb Heart Rate 92 /min BP Systolic Sitting 146 mmHg BP Diastolic Sitting 87 mmHg Respiratory Rate 14 /min Pain Level 6 BMI (Body Mass Index) 28.7 kg/m2 11/05/2017 Height 63 inches 5'3" Weight 159.50 lb Heart Rate 68 /min BP Systolic 138 mmHg BP Diastolic 86 mmHg BMI (Body Mass Index) 28.3 kg/m2 10/23/2017 Height 63 inches 5'3" Weight 159.50 lb Heart Rate 78 /min BP Systolic 110 mmHg BP Diastolic 72 mmHg BMI (Body Mass Index) 28.3 kg/m2 10/14/2017 Height 63 inches 5'3" Weight 160.00 lb Heart Rate 80 /min BP Systolic 134 mmHg BP Diastolic 90 mmHg Respiratory Rate 14 /min BMI (Body Mass Index) 28.3 kg/m2 09/02/2017 Height 63 inches 5'3" Weight 165.00 lb Heart Rate 76 /min Respiratory Rate 14 /min Body Temperature 98.4 F Pain Level 4 BMI (Body Mass Index) 29.2 kg/m2 06/15/2017 Height 63 inches 5'3" Weight 165.00 lb Heart Rate 88 /min BP Systolic 130 mmHg BP Diastolic 80 mmHg Body Temperature 97.9 F Pain Level 0 BMI (Body Mass Index) 29.2 kg/m2 03/23/2017 Height 63 inches 5'3" Weight 165.00 lb Heart Rate 72 /min BP Systolic 118 mmHg BP Diastolic 72 mmHg BMI (Body Mass Index) 29.2 kg/m2 04/29/2016 Height 62 inches 5'2" Weight 171.00 lb Heart Rate 88 /min BP Systolic Sitting 144 mmHg left arm, reg cuff BP Diastolic Sitting 84 mmHg left arm, reg cuff BP Systolic Recheck 118 mmHg la repeat sit BP Diastolic Recheck 68 mmHg la repeat sit BMI (Body Mass Index) 31.3 kg/m2 Ejection Fraction 55-60% 05/20/13 10/24/2015 Height 62 inches 5'2" Weight 173.25 lb with shoes Heart Rate 84 /min BP Systolic Sitting 144 mmHg LA, regular cuff BP Diastolic Sitting 80 mmHg LA, regular cuff BMI (Body Mass Index) 31.7 kg/m2 Ejection Fraction 55-60% echo 05/20/13 10/03/2015 Height 63 inches 5'3" Weight 169.50 lb Heart Rate 84 /min BP Systolic Sitting 110 mmHg LA, regular cuff BP Diastolic Sitting 72 mmHg LA, regular cuff BMI (Body Mass Index) 30.0 kg/m2 Ejection Fraction 55-60 echo 05/20/13 07/18/2015 Height 63 inches 5'3" Weight 174.50 lb w/shoes Heart Rate 88 /min BP Systolic Sitting 120 mmHg LA reg cuff BP Diastolic Sitting 84 mmHg LA reg cuff BMI (Body Mass Index) 30.9 kg/m2 Ejection Fraction 55-60 echo 05/20/13 01/03/2015 Height 63 inches 5'3" Weight 170.00 lb Heart Rate 81 /min BP Systolic 138 mmHg BP Diastolic 92 mmHg Pain Level 6 BMI (Body Mass Index) 30.1 kg/m2 04/18/2014 Height 63 inches 5'3" Weight 160.00 lb Heart Rate 84 /min BP Systolic Sitting 134 mmHg BP Diastolic Sitting 78 mmHg Respiratory Rate 16 /min BMI (Body Mass Index) 28.3 kg/m2 03/30/2014 Height 63 inches 5'3" Weight 169.00 lb Heart Rate 76 /min BP Systolic Sitting 124 mmHg BP Diastolic Sitting 84 mmHg BMI (Body Mass Index) 29.9 kg/m2 02/15/2014 Height 63 inches 5'3" Weight 165.00 lb Heart Rate 72 /min BMI (Body Mass Index) 29.2 kg/m2 01/27/2014 Height 63 inches 5'3" Heart Rate 82 /min BP Systolic 142 mmHg BP Diastolic 83 mmHg 01/04/2014 Height 63 inches 5'3" Weight 165.00 lb Heart Rate 84 /min BMI (Body Mass Index) 29.2 kg/m2 11/30/2013 Height 63 inches 5'3" Weight 165.00 lb Heart Rate 88 /min BMI (Body Mass Index) 29.2 kg/m2 11/17/2013 Height 63 inches 5'3" Weight 165.00 lb Heart Rate 87 /min BP Systolic 118 mmHg BP Diastolic 89 mmHg BMI (Body Mass Index) 29.2 kg/m2 10/27/2013 Heart Rate 103 /min BP Systolic 149 mmHg BP Diastolic 93 mmHg 08/19/2013 Height 63 inches 5'3" Weight 170.00 lb Heart Rate 92 /min reg BP Systolic Sitting 130 mmHg BP Diastolic Sitting 78 mmHg BMI (Body Mass Index) 30.1 kg/m2 07/07/2013 Height 63 inches 5'3" Weight 168.75 lb Heart Rate 72 /min BP Systolic Sitting 128 mmHg BP Diastolic Sitting 78 mmHg BMI (Body Mass Index) 29.9 kg/m2 05/25/2013 Height 63 inches 5'3" Weight 169.00 lb Heart Rate 78 /min BP Systolic Sitting 124 mmHg BP Diastolic Sitting 76 mmHg BMI (Body Mass Index) 29.9 kg/m2 05/18/2013 Height 63 inches 5'3" Weight 166.00 lb Heart Rate 83 /min BP Systolic 130 mmHg BP Diastolic 80 mmHg BP Systolic Sitting 132 mmHg BP Diastolic Sitting 80 mmHg BP Systolic Standing 132 mmHg BP Diastolic Standing 78 mmHg Respiratory Rate 16 /min BMI (Body Mass Index) 29.4 kg/m2 10/02/2008 Height 63 inches 5'3" Weight 163.00 lb Heart Rate 86 /min BP Systolic Sitting 102 mmHg left arm, right arm 114/76 BP Diastolic Sitting 74 mmHg left arm, right arm 114/76 BP Systolic Standing 122 mmHg BP Diastolic Standing 80 mmHg BMI (Body Mass Index) 28.9 kg/m2 Results Test Date Test Result H/L Range Note CBC Auto Diff 06/11/2018 White Blood Count 10.0 10^3/uL 3.5-10.8 Red Blood Count 4.10 10^6/uL 4.00-5.40 Hemoglobin 12.3 g/dL 12.0-16.0 Hematocrit 37 % 35-47 Mean Corpuscular Volume 90 fL 80-97 Mean Corpuscular Hemoglobin 30 pg 27-31 Mean Corpuscular HGB Conc 33 g/dL 31-36 Red Cell Distribution Width 14 % 10.5-15 Platelet Count 232 10^3/uL 150-450 Mean Platelet Volume 8.6 um3 7.4-10.4 Abs Neutrophils 6.1 10^3/uL 1.5-7.7 Abs Lymphocytes 2.9 10^3/uL 1.0-4.8 Abs Monocytes 0.8 10^3/uL 0-0.8 Abs Eosinophils 0.2 10^3/uL 0-0.6 Abs Basophils 0.1 10^3/uL 0-0.2 Abs Nucleated RBC 0 10^3/uL Granulocyte % 61.0 % 38-83 Lymphocyte % 29.0 % 25-47 Monocyte % 7.8 % High 0-7 Eosinophil % 1.7 % 0-6 Basophil % 0.5 % 0-2 Nucleated Red Blood Cells % 0 Laboratory test finding 06/11/2018 Erythrocyte Sed Rate 18 mm/Hr 0-40 Comp Metabolic Panel 06/11/2018 Sodium 141 mmol/L 135-145 Potassium 3.4 mmol/L Low 3.5-5.0 Chloride 108 mmol/L 101-111 Co2 Carbon Dioxide 24 mmol/L 22-32 Anion Gap 9 mmol/L 2-11 Glucose 115 mg/dL High 70-100 Creatinine 0.86 mg/dL 0.51-0.95 Calcium 9.2 mg/dL 8.6-10.3 Total Protein 6.6 g/dL 6.4-8.9 Albumin 4.2 g/dL 3.2-5.2 Globulin 2.4 g/dL 2-4 Albumin/Globulin Ratio 1.8 1-3 Total Bilirubin 0.70 mg/dL 0.2-1.0 Alkaline Phosphatase 72 U/L 34-104 Alt 21 U/L 7-52 Ast 17 U/L 13-39 Egfr Non- 65.4 >60 Egfr 79.2 >60 1 Blood Urea Nitrogen 24 mg/dL 6-24 BUN/Creatinine Ratio 27.9 High 8-20 Laboratory test finding 06/11/2018 Creatine Kinase(CK) 542 U/L High 10- 223 C Reactive Protein 5.45 mg/L <8.01 Laboratory test finding 05/19/2018 C Reactive Protein 12.08 mg/L High < 8.01 2 Erythrocyte Sed Rate 30 mm/Hr 0-40 3 Comp Metabolic Panel 05/19/2018 Sodium 142 mmol/L 135-145 Potassium 4.0 mmol/L 3.5-5.0 Chloride 108 mmol/L 101-111 Co2 Carbon Dioxide 29 mmol/L 22-32 Anion Gap 5 mmol/L 2-11 Glucose 83 mg/dL 70-100 Blood Urea Nitrogen 17 mg/dL 6-24 Creatinine 0.79 mg/dL 0.51-0.95 BUN/Creatinine Ratio 21.5 High 8-20 Calcium 9.7 mg/dL 8.6-10.3 Total Protein 6.4 g/dL 6.4-8.9 Albumin 4.1 g/dL 3.2-5.2 Globulin 2.3 g/dL 2-4 Albumin/Globulin Ratio 1.8 1-3 Total Bilirubin 0.70 mg/dL 0.2-1.0 Alkaline Phosphatase 97 U/L 34-104 Alt 19 U/L 7-52 Ast 16 U/L 13-39 Egfr Non- 72.2 >60 Egfr 87.3 >60 4 Laboratory test finding 05/19/2018 Creatine Kinase(CK) 554 U/L High 10- 223 5 CBC Auto Diff 05/19/2018 White Blood Count 8.1 10^3/uL 3.5-10.8 Red Blood Count 4.17 10^6/uL 4.00-5.40 Hemoglobin 12.6 g/dL 12.0-16.0 Hematocrit 38 % 35-47 Mean Corpuscular Volume 90 fL 80-97 Mean Corpuscular Hemoglobin 30 pg 27-31 Mean Corpuscular HGB Conc 34 g/dL 31-36 Red Cell Distribution Width 14 % 10.5-15 Platelet Count 264 10^3/uL 150-450 Mean Platelet Volume 8.3 um3 7.4-10.4 Abs Neutrophils 4.7 10^3/uL 1.5-7.7 Abs Lymphocytes 2.5 10^3/uL 1.0-4.8 Abs Monocytes 0.7 10^3/uL 0-0.8 Abs Eosinophils 0.2 10^3/uL 0-0.6 Abs Basophils 0 10^3/uL 0-0.2 Abs Nucleated RBC 0 10^3/uL Granulocyte % 57.8 % 38-83 Lymphocyte % 31.0 % 25-47 Monocyte % 8.2 % High 0-7 Eosinophil % 2.5 % 0-6 Basophil % 0.5 % 0-2 Nucleated Red Blood Cells % 0 Comp Metabolic Panel 04/15/2018 Sodium 140 mmol/L 135-145 Potassium 3.8 mmol/L 3.5-5.0 Chloride 107 mmol/L 101-111 Co2 Carbon Dioxide 27 mmol/L 22-32 Anion Gap 6 mmol/L 2-11 Glucose 111 mg/dL High 70-100 Blood Urea Nitrogen 25 mg/dL High 6-24 Creatinine 0.85 mg/dL 0.51-0.95 BUN/Creatinine Ratio 29.4 High 8-20 Calcium 9.3 mg/dL 8.6-10.3 Total Protein 6.3 g/dL Low 6.4-8.9 Albumin 4.1 g/dL 3.2-5.2 Globulin 2.2 g/dL 2-4 Albumin/Globulin Ratio 1.9 1-3 Total Bilirubin 0.90 mg/dL 0.2-1.0 Alkaline Phosphatase 98 U/L 34-104 Alt 20 U/L 7-52 Ast 16 U/L 13-39 Egfr Non- 66.3 >60 Egfr 80.2 >60 6 CBC Auto Diff 04/15/2018 White Blood Count 9.9 10^3/uL 3.5-10.8 Red Blood Count 4.17 10^6/uL 4.00-5.40 Hemoglobin 12.5 g/dL 12.0-16.0 Hematocrit 38 % 35-47 Mean Corpuscular Volume 91 fL 80-97 Mean Corpuscular Hemoglobin 30 pg 27-31 Mean Corpuscular HGB Conc 33 g/dL 31-36 Red Cell Distribution Width 15 % 10.5-15 Platelet Count 247 10^3/uL 150-450 Mean Platelet Volume 8.6 um3 7.4-10.4 Abs Neutrophils 7.5 10^3/uL 1.5-7.7 Abs Lymphocytes 1.5 10^3/uL 1.0-4.8 Abs Monocytes 0.7 10^3/uL 0-0.8 Abs Eosinophils 0.2 10^3/uL 0-0.6 Abs Basophils 0 10^3/uL 0-0.2 Abs Nucleated RBC 0 10^3/uL Granulocyte % 75.9 % 38-83 Lymphocyte % 15.2 % Low 25-47 Monocyte % 7.0 % 0-7 Eosinophil % 1.5 % 0-6 Basophil % 0.4 % 0-2 Nucleated Red Blood Cells % 0 Laboratory test finding 04/15/2018 Erythrocyte Sed Rate 28 mm/Hr 0-40 C Reactive Protein 9.80 mg/L High <8.01 7 Lipid Panel - [facility] 03/19/2018 Creatine Kinase(CK) <pending> Laboratory test finding 03/19/2018 Magnesium 2.0 mg/dL 1.9-2.7 CBC Auto Diff 03/19/2018 White Blood Count 9.2 10^3/uL 3.5-10.8 Red Blood Count 4.25 10^6/uL 4.00-5.40 Hemoglobin 12.6 g/dL 12.0-16.0 Hematocrit 38 % 35-47 Mean Corpuscular Volume 89 fL 80-97 Mean Corpuscular Hemoglobin 30 pg 27-31 Mean Corpuscular HGB Conc 33 g/dL 31-36 Red Cell Distribution Width 15 % 10.5-15 Platelet Count 259 10^3/uL 150-450 Mean Platelet Volume 8.1 um3 7.4-10.4 Abs Neutrophils 5.2 10^3/uL 1.5-7.7 Abs Lymphocytes 3.1 10^3/uL 1.0-4.8 Abs Monocytes 0.6 10^3/uL 0-0.8 Abs Eosinophils 0.2 10^3/uL 0-0.6 Abs Basophils 0.1 10^3/uL 0-0.2 Abs Nucleated RBC 0 10^3/uL Granulocyte % 57.0 % 38-83 Lymphocyte % 34.1 % 25-47 Monocyte % 6.5 % 0-7 Eosinophil % 1.7 % 0-6 Basophil % 0.7 % 0-2 Nucleated Red Blood Cells % 0 Comp Metabolic Panel 03/19/2018 Sodium 141 mmol/L 135-145 Potassium 3.7 mmol/L 3.5-5.0 Chloride 105 mmol/L 101-111 Co2 Carbon Dioxide 29 mmol/L 22-32 Anion Gap 7 mmol/L 2-11 Glucose 142 mg/dL High 70-100 Blood Urea Nitrogen 20 mg/dL 6-24 Creatinine 0.80 mg/dL 0.51-0.95 BUN/Creatinine Ratio 25.0 High 8-20 Calcium 9.5 mg/dL 8.6-10.3 Total Protein 6.6 g/dL 6.4-8.9 Albumin 4.1 g/dL 3.2-5.2 Globulin 2.5 g/dL 2-4 Albumin/Globulin Ratio 1.6 1-3 Total Bilirubin 0.80 mg/dL 0.2-1.0 Alkaline Phosphatase 58 U/L 34-104 Alt 21 U/L 7-52 Ast 17 U/L 13-39 Egfr Non- 71.1 >60 Egfr 86.1 >60 8 Laboratory test finding 03/19/2018 Creatine Kinase(CK) 558 U/L High 10- 223 Laboratory test finding 03/19/2018 Erythrocyte Sed Rate 28 mm/Hr 0-40 C Reactive Protein 11.82 mg/L High <8.01 Comp Metabolic Panel 03/04/2018 Sodium 140 mmol/L 139-145 Potassium 3.8 mmol/L 3.5-5.0 Chloride 108 mmol/L 101-111 Co2 Carbon Dioxide 24 mmol/L 22-32 Anion Gap 8 mmol/L 2-11 Glucose 111 mg/dL High 70-100 Blood Urea Nitrogen 21 mg/dL 6-24 Creatinine 0.78 mg/dL 0.51-0.95 BUN/Creatinine Ratio 26.9 High 8-20 Calcium 9.2 mg/dL 8.6-10.3 Total Protein 5.8 g/dL Low 6.4-8.9 Albumin 3.7 g/dL 3.2-5.2 Globulin 2.1 g/dL 2-4 Albumin/Globulin Ratio 1.8 1-3 Total Bilirubin 0.70 mg/dL 0.2-1.0 Alkaline Phosphatase 58 U/L 34-104 Alt 22 U/L 7-52 Ast 18 U/L 13-39 Egfr Non- 73.2 >60 Egfr 94.2 >60 9 Laboratory test finding 03/04/2018 Creatine Kinase(CK) 603 U/L High 10- 223 Erythrocyte Sed Rate 18 mm/Hr 0-40 C Reactive Protein 7.96 mg/L High < 5.00 10 Comp Metabolic Panel 02/08/2018 Sodium 142 mmol/L 139-145 Potassium 3.4 mmol/L Low 3.5-5.0 Chloride 109 mmol/L 101-111 Co2 Carbon Dioxide 25 mmol/L 22-32 Anion Gap 8 mmol/L 2-11 Glucose 141 mg/dL High 70-100 Blood Urea Nitrogen 20 mg/dL 6-24 Creatinine 0.83 mg/dL 0.51-0.95 BUN/Creatinine Ratio 24.1 High 8-20 Calcium 9.4 mg/dL 8.6-10.3 Total Protein 6.2 g/dL Low 6.4-8.9 Albumin 4.0 g/dL 3.2-5.2 Globulin 2.2 g/dL 2-4 Albumin/Globulin Ratio 1.8 1-3 Total Bilirubin 1.10 mg/dL High 0.2-1.0 Alkaline Phosphatase 58 U/L 34-104 Alt 22 U/L 7-52 Ast 16 U/L 13-39 Egfr Non- 68.2 >60 Egfr 87.7 >60 11 CBC Auto Diff 02/08/2018 White Blood Count 12.5 10^3/uL High 3.5-10.8 Red Blood Count 4.19 10^6/uL 4.0-5.4 Hemoglobin 12.0 g/dL 12.0-16.0 Hematocrit 37 % 35-47 Mean Corpuscular Volume 87 fL 80-97 Mean Corpuscular Hemoglobin 29 pg 27-31 Mean Corpuscular HGB Conc 33 g/dL 31-36 Red Cell Distribution Width 15 % 10.5-15 Platelet Count 234 10^3/uL 150-450 Mean Platelet Volume 8.6 um3 7.4-10.4 Abs Neutrophils 8.8 10^3/uL High 1.5-7.7 Abs Lymphocytes 2.8 10^3/uL 1.0-4.8 Abs Monocytes 0.8 10^3/uL 0-0.8 Abs Eosinophils 0.1 10^3/uL 0-0.6 Abs Basophils 0 10^3/uL 0-0.2 Abs Nucleated RBC 0 10^3/uL Granulocyte % 70.4 % 38-83 Lymphocyte % 22.3 % Low 25-47 Monocyte % 6.2 % 0-7 Eosinophil % 0.8 % 0-6 Basophil % 0.3 % 0-2 Nucleated Red Blood Cells % 0 Laboratory test finding 02/08/2018 Anti Nuclear Antibody 0.2 U 12 Creatine Kinase(CK) 635 U/L High 10-223 13 C Reactive Protein 32.35 mg/L High < 5.00 14 Erythrocyte Sed Rate 29 mm/Hr 0-40 15 Comp Metabolic Panel 01/12/2018 Sodium 140 mmol/L 139-145 Potassium 3.9 mmol/L 3.5-5.0 Chloride 105 mmol/L 101-111 Co2 Carbon Dioxide 25 mmol/L 22-32 Anion Gap 10 mmol/L 2-11 Glucose 151 mg/dL High 70-100 Blood Urea Nitrogen 24 mg/dL 6-24 Creatinine 0.90 mg/dL 0.51-0.95 BUN/Creatinine Ratio 26.7 High 8-20 Calcium 9.6 mg/dL 8.6-10.3 Total Protein 6.6 g/dL 6.4-8.9 Albumin 4.2 g/dL 3.2-5.2 Globulin 2.4 g/dL 2-4 Albumin/Globulin Ratio 1.8 1-3 Total Bilirubin 0.60 mg/dL 0.2-1.0 Alkaline Phosphatase 56 U/L 34-104 Alt 24 U/L 7-52 Ast 17 U/L 13-39 Egfr Non- 62.1 >60 Egfr 79.8 >60 16 CBC Auto Diff 01/12/2018 White Blood Count 12.2 10^3/uL High 3.5-10.8 Red Blood Count 4.61 10^6/uL 4.0-5.4 Hemoglobin 13.1 g/dL 12.0-16.0 Hematocrit 40 % 35-47 Mean Corpuscular Volume 86 fL 80-97 Mean Corpuscular Hemoglobin 28 pg 27-31 Mean Corpuscular HGB Conc 33 g/dL 31-36 Red Cell Distribution Width 14 % 10.5-15 Platelet Count 270 10^3/uL 150-450 Mean Platelet Volume 8.5 um3 7.4-10.4 Abs Neutrophils 8.6 10^3/uL High 1.5-7.7 Abs Lymphocytes 2.6 10^3/uL 1.0-4.8 Abs Monocytes 0.8 10^3/uL 0-0.8 Abs Eosinophils 0.1 10^3/uL 0-0.6 Abs Basophils 0.1 10^3/uL 0-0.2 Abs Nucleated RBC 0 10^3/uL Granulocyte % 70.5 % 38-83 Lymphocyte % 21.5 % Low 25-47 Monocyte % 6.7 % 0-7 Eosinophil % 0.9 % 0-6 Basophil % 0.4 % 0-2 Nucleated Red Blood Cells % 0 Laboratory test finding 01/12/2018 Erythrocyte Sed Rate 28 mm/Hr 0-40 C Reactive Protein 12.66 mg/L High < 5.00 17 Creatine Kinase(CK) 637 U/L High 10-223 Aldolase 6.0 U/L <7.7 18 Laboratory test finding 11/26/2017 C Reactive Protein 21.40 mg/L High < 5.00 19 Erythrocyte Sed Rate 16 mm/Hr 0-40 Aldolase 8.5 U/L <7.7 20 Creatine Kinase(CK) 652 U/L High 10-223 Basic Metabolic Panel 11/26/2017 Sodium 138 mmol/L 133-145 Potassium 3.9 mmol/L 3.5-5.0 Chloride 104 mmol/L 101-111 Co2 Carbon Dioxide 26 mmol/L 22-32 Anion Gap 8 mmol/L 2-11 Glucose 118 mg/dL High 70-100 Blood Urea Nitrogen 20 mg/dL 6-24 Creatinine 0.73 mg/dL 0.51-0.95 BUN/Creatinine Ratio 27.4 High 8-20 Calcium 9.4 mg/dL 8.6-10.3 Egfr Non- 79.0 >60 Egfr 101.7 >60 21 Laboratory test finding 11/09/2017 C Reactive Protein 68.01 mg/L High < 5.00 22 Erythrocyte Sed Rate 66 mm/Hr High 0-40 Creatine Kinase(CK) 581 U/L High 10-223 Cyclic Citrullinated Pep Igg <15.6 U 23 Anca AB Ser If 11/09/2017 C-Anca Negative Negative P-Anca Negative Negative 24 Laboratory test 11/09/2017 Angiotensin Converting 21 U/L 8 - 53 25 finding Enzyme Hepatitis Acute Panel 11/09/2017 Hepatitis C Antibody Nonreactive Nonreactive Hepatitis A AB Igm Nonreactive Nonreactive Hepatitis B Core AB Igm Nonreactive Nonreactive Hepatitis B Surface Ag Nonreactive Nonreactive Hla B27 11/09/2017 Hla B27 Negative 26 Hla B27 Interp See Comment 27 Tick-Borne Panel PCR Blood 11/09/2017 Babesia microti PCR Negative Negative Babesia ducani Negative Negative Babesia divergens/Mo-1 Negative Negative 28 Anaplasma phagocytophilum Negative Negative Ehrlichia chaffeensis Negative Negative Ehrlichia ewingii/canis Negative Negative Ehrlichia muris-like Negative Negative 29 B. miyamotoi PCR, B Negative Negative 30 CBC Auto Diff 10/21/2017 White Blood Count 7.7 10^3/uL 3.5-10.8 Red Blood Count 4.15 10^6/uL 4.0-5.4 Hemoglobin 12.1 g/dL 12.0-16.0 Hematocrit 37 % 35-47 Mean Corpuscular Volume 88 fL 80-97 Mean Corpuscular Hemoglobin 29 pg 27-31 Mean Corpuscular HGB Conc 33 g/dL 31-36 Red Cell Distribution Width 13 % 10.5-15 Platelet Count 307 10^3/uL 150-450 Mean Platelet Volume 8 um3 7.4-10.4 Abs Neutrophils 5.4 10^3/uL 1.5-7.7 Abs Lymphocytes 1.6 10^3/uL 1.0-4.8 Abs Monocytes 0.6 10^3/uL 0-0.8 Abs Eosinophils 0.1 10^3/uL 0-0.6 Abs Basophils 0 10^3/uL 0-0.2 Abs Nucleated RBC 0 10^3/uL Granulocyte % 70.1 % 38-83 Lymphocyte % 20.3 % Low 25-47 Monocyte % 7.7 % 1-9 Eosinophil % 1.3 % 0-6 Basophil % 0.6 % 0-2 Nucleated Red Blood Cells % 0 Laboratory test finding 10/21/2017 Erythrocyte Sed Rate 43 mm/Hr High 0- 40 Comp Metabolic Panel 10/21/2017 Sodium 140 mmol/L 133-145 Potassium 4.1 mmol/L 3.5-5.0 Chloride 107 mmol/L 101-111 Co2 Carbon Dioxide 26 mmol/L 22-32 Anion Gap 7 mmol/L 2-11 Glucose 104 mg/dL High 70-100 Blood Urea Nitrogen 15 mg/dL 6-24 Creatinine 0.71 mg/dL 0.51-0.95 BUN/Creatinine Ratio 21.1 High 8-20 Calcium 9.5 mg/dL 8.6-10.3 Total Protein 6.5 g/dL 6.4-8.9 Albumin 4.0 g/dL 3.2-5.2 Globulin 2.5 g/dL 2-4 Albumin/Globulin Ratio 1.6 1-3 Total Bilirubin 0.90 mg/dL 0.2-1.0 Alkaline Phosphatase 93 U/L 34-104 Alt 21 U/L 7-52 Ast 14 U/L 13-39 Egfr Non- 81.9 >60 Egfr 105.3 >60 31 Laboratory test finding 10/21/2017 C Reactive Protein 35.16 mg/L High < 5.00 32 TSH (Thyroid Stim Horm) 0.65 mcIU/mL 0.34-5.60 Free T4 (Free Thyroxine) 0.92 ng/dL 0.61-1.12 Lyme Disease Serology Negative Negative 33 Protein Electrophoresis 10/21/2017 Total Protein(Pep) 6.8 g/dL 6.3 - 7.9 Albumin 3.4 g/dL 3.4-4.7 Alpha-1 Globulin 0.3 g/dL 0.1-0.3 Alpha-2 Globulin 1.1 g/dL 0.6-1.0 Beta Globulin 1.1 g/dL 0.7-1.2 Gamma Globulin 1.0 g/dL 0.6-1.6 Albumin/Globulin Ratio 0.99 Impression See Comment 34 Laboratory test finding 10/16/2017 Creatine Kinase(CK) 701 U/L High 10- 223 35 Anti Nuclear Antibody 0.3 U 36 Pamela-1 Antibody <0.2 U 37 Laboratory test finding 04/21/2015 Magnesium 1.9 mg/dL 1.9-2.7 Comp Metabolic Panel 04/21/2015 Sodium 139 mmol/L 133-145 Potassium 3.3 mmol/L Low 3.5-5.0 Chloride 107 mmol/L 101-111 Co2 Carbon Dioxide 25 mmol/L 22-32 Anion Gap 7 mmol/L 2-11 Glucose 112 mg/dL High 70-100 Blood Urea Nitrogen 23 mg/dL 6-24 Creatinine 0.83 mg/dL 0.51-0.95 BUN/Creatinine Ratio 27.7 High 8-20 Calcium 9.4 mg/dL 8.6-10.3 Total Protein 6.8 g/dL 6.4-8.9 Albumin 4.3 g/dL 3.2-5.2 Globulin 2.5 g/dL 2-4 Albumin/Globulin Ratio 1.7 1-3 Total Bilirubin 0.70 mg/dL 0.2-1.0 Alkaline Phosphatase 78 U/L 34-104 Alt 19 U/L 7-52 Ast 18 U/L 13-39 Egfr Non- 68.8 >60 Egfr 88.5 >60 38 CBC Auto Diff 04/21/2015 White Blood Count 8.0 10^3/uL 4.8-10.8 Red Blood Count 4.10 10^6/uL 4.0-5.4 Hemoglobin 11.8 g/dL Low 12.0-16.0 Hematocrit 36 % 35-47 Mean Corpuscular Volume 88 fL 80-97 Mean Corpuscular Hemoglobin 29 pg 27-31 Mean Corpuscular HGB Conc 33 g/dL 31-36 Red Cell Distribution Width 14 % 10.5-15 Platelet Count 215 10^3/uL 150-450 Mean Platelet Volume 9 um3 7.4-10.4 Abs Neutrophils 4.8 10^3/uL 1.5-7.7 Abs Lymphocytes 2.4 10^3/uL 1.0-4.8 Abs Monocytes 0.6 10^3/uL 0-0.8 Abs Eosinophils 0.2 10^3/uL 0-0.6 Abs Basophils 0 10^3/uL 0-0.2 Abs Nucleated RBC 0 10^3/uL Granulocyte % 59.6 % 38-83 Lymphocyte % 30.0 % 25-47 Monocyte % 7.9 % 1-9 Eosinophil % 2.0 % 0-6 Basophil % 0.5 % 0-2 Nucleated Red Blood Cells % 0 Basic Metabolic Panel 11/21/2013 Sodium 140 mmol/L 133-145 Potassium 4.2 mmol/L 3.7-5.6 Chloride 107 mmol/L 101-111 Co2 Carbon Dioxide 27 mmol/L 22-32 Anion Gap 6 mmol/L 2-11 Glucose 92 mg/dL 70-100 Blood Urea Nitrogen 22 mg/dL 6-24 Creatinine 0.88 mg/dL 0.51-0.95 BUN/Creatinine Ratio 25.0 High 8-20 Calcium 9.5 mg/dL 8.6-10.3 Egfr Non- 64.7 >60 Egfr 83.2 >60 39 Laboratory test finding 10/04/2013 Magnesium 2.2 mg/dL 1.7-2.6 Basic Metabolic Panel 10/04/2013 Sodium 141 mmol/L 133-145 Potassium 4.1 mmol/L 3.5-5.0 Chloride 108 mmol/L 101-111 Co2 Carbon Dioxide 28.0 mmol/L 22-32 Anion Gap 5.0 mmol/L 2-11 Glucose 94 mg/dL 70-100 Blood Urea Nitrogen 20 mg/dL 6-24 Creatinine 0.80 mg/dL 0.50-1.40 BUN/Creatinine Ratio 25.0 High 8-20 Calcium 9.4 mg/dL 8.1-9.9 Egfr Non- 72.2 >60 Egfr 92.9 >60 40 Surgical Pathology 07/29/2013 S RUN DATE: 08/01/ <SEE NOTE> 41 Basic Metabolic Panel 06/06/2013 Sodium 142 mmol/L 133-145 Potassium 3.9 mmol/L 3.5-5.0 Chloride 106 mmol/L 101-111 Co2 Carbon Dioxide 29.0 mmol/L 22-32 Anion Gap 7.0 mmol/L 2-11 Glucose 129 mg/dL High 70-100 Blood Urea Nitrogen 22 mg/dL 6-24 Creatinine 0.70 mg/dL 0.50-1.40 BUN/Creatinine Ratio 31.4 High 8-20 Calcium 9.9 mg/dL 8.1-9.9 Egfr Non- 84.2 >60 Egfr 108.3 >60 42 CBC Auto Diff 05/25/2013 White Blood Count 6.8 10^3/uL 4.8-10.8 Red Blood Count 4.16 10^6/uL 4.0-5.4 Hemoglobin 12.4 g/dL 12.0-16.0 Hematocrit 36 % 35-47 Mean Corpuscular Volume 87 fL 80-97 Mean Corpuscular Hemoglobin 30 pg 27-31 Mean Corpuscular HGB Conc 34 g/dL 31-36 Red Cell Distribution Width 14 % 10.5-15 Platelet Count 229 10^3/uL 150-450 Mean Platelet Volume 9 um3 7.4-10.4 Abs Neutrophils 3.5 10^3/uL 1.5-7.7 Abs Lymphocytes 2.5 10^3/uL 1.0-4.8 Abs Monocytes 0.6 10^3/uL 0-0.8 Abs Eosinophils 0.2 10^3/uL 0-0.6 Abs Basophils 0.1 10^3/uL 0-0.2 Abs Nucleated RBC 0.01 10^3/uL Granulocyte % 51.6 % 38-83 Lymphocyte % 36.4 % 25-47 Monocyte % 8.2 % 1-9 Eosinophil % 3.0 % 0-6 Basophil % 0.8 % 0-2 Nucleated Red Blood Cells % 0.1 Comp Metabolic Panel 05/25/2013 Sodium 142 mmol/L 133-145 Potassium 4.1 mmol/L 3.5-5.0 Chloride 106 mmol/L 101-111 Co2 Carbon Dioxide 29.0 mmol/L 22-32 Anion Gap 7.0 mmol/L 2-11 Glucose 88 mg/dL 70-100 Blood Urea Nitrogen 23 mg/dL 6-24 Creatinine 0.70 mg/dL 0.50-1.40 BUN/Creatinine Ratio 32.9 High 8-20 Calcium 9.6 mg/dL 8.1-9.9 Total Protein 6.9 g/dL 6.2-8.1 Albumin 4.3 g/dL 3.2-5.2 Globulin 2.6 g/dL 2-4 Albumin/Globulin Ratio 1.7 1-3 Total Bilirubin 0.8 mg/dL 0.4-1.5 Alkaline Phosphatase 67 U/L 30-110 Alt 25 U/L 14-54 Ast 23 U/L 12-42 Egfr Non- 84.2 >60 Egfr 108.3 >60 43 Laboratory test finding 05/25/2013 Erythrocyte Sed Rate 32 mm/Hr High 0- 30 Cyclic Citrullinated Pept IgG <15.6 U 44 C Reactive Protein 0.7 mg/dL High Less than 0.5 Rheumatoid Factor <15 IU/mL <15 45 Lyme Western Blot 05/25/2013 Lyme Disease IgG Ab WB Negative Negative Lyme Disease IgG Bands Present No bands detecte <SEE NOTE> kDa 46 Lyme Disease IgM Ab WB Negative Negative Lyme Disease IgM Bands Present No bands detecte <SEE NOTE> kDa 47 Lyme Disease Interpretation See Comment 48 Laboratory test finding 05/18/2013 C Reactive Protein 0.7 mg/dL High Less than 0.5 49 B Type Natriuretic Peptide 34.0 pg/mL 0-100 50 TSH (Thyroid Stimulating Horm) 0.51 miu/mL 0.34-5.60 51 Free T4 0.80 ng/mL 0.61-1.24 52 Magnesium 2.1 mg/dL 1.7-2.6 53 CBC Auto Diff 05/18/2013 White Blood Count 8.1 10^3/uL 4.8-10.8 Red Blood Count 4.46 10^6/uL 4.0-5.4 Hemoglobin 12.7 g/dL 12.0-16.0 Hematocrit 39 % 35-47 Mean Corpuscular Volume 87 fL 80-97 Mean Corpuscular Hemoglobin 28 pg 27-31 Mean Corpuscular HGB Conc 33 g/dL 31-36 Red Cell Distribution Width 13 % 10.5-15 Platelet Count 224 10^3/uL 150-450 Mean Platelet Volume 9 um3 7.4-10.4 Abs Neutrophils 5.2 10^3/uL 1.5-7.7 Abs Lymphocytes 2.2 10^3/uL 1.0-4.8 Abs Monocytes 0.6 10^3/uL 0-0.8 Abs Eosinophils 0.1 10^3/uL 0-0.6 Abs Basophils 0 10^3/uL 0-0.2 Abs Nucleated RBC 0 10^3/uL Granulocyte % 63.7 % 38-83 Lymphocyte % 26.6 % 25-47 Monocyte % 7.4 % 1-9 Eosinophil % 1.7 % 0-6 Basophil % 0.6 % 0-2 Nucleated Red Blood Cells % 0 Comp Metabolic Panel 05/18/2013 Sodium 139 mmol/L 133-145 Potassium 3.4 mmol/L Low 3.5-5.0 Chloride 100 mmol/L Low 101-111 Co2 Carbon Dioxide 31.0 mmol/L 22-32 Anion Gap 8.0 mmol/L 2-11 Glucose 98 mg/dL 70-100 Blood Urea Nitrogen 17 mg/dL 6-24 Creatinine 0.80 mg/dL 0.50-1.40 BUN/Creatinine Ratio 21.3 High 8-20 Calcium 9.5 mg/dL 8.1-9.9 Total Protein 6.5 g/dL 6.2-8.1 Albumin 4.3 g/dL 3.2-5.2 Globulin 2.2 g/dL 2-4 Albumin/Globulin Ratio 2.0 1-3 Total Bilirubin 1.3 mg/dL 0.4-1.5 Alkaline Phosphatase 69 U/L 30-110 Alt 22 U/L 14-54 Ast 23 U/L 12-42 Egfr Non- 72.2 >60 Egfr 92.9 >60 54 1 Because ethnic data is not always readily available, this report includes an eGFR for both -Americans and non- Americans. The National Kidney Disease Education Program (NKDEP) does not endorse the use of the MDRD equation for patients that are not between the ages of 18 and 70, are , have extremes of body size, muscle mass, or nutritional status, or are non- or non-. According to the National Kidney Foundation, irrespective of diagnosis, the stage of the disease is based on the level of kidney function: Stage Description GFR(mL/min/1.73 m(2)) 1 Kidney damage with normal or decreased GFR 90 2 Kidney damage with mild decrease in GFR 60-89 3 Moderate decrease in GFR 30-59 4 Severe decrease in GFR 15-29 5 Kidney failure <15 (or dialysis) 2 standing order 3 standing order 4 Because ethnic data is not always readily available, this report includes an eGFR for both -Americans and non- Americans. The National Kidney Disease Education Program (NKDEP) does not endorse the use of the MDRD equation for patients that are not between the ages of 18 and 70, are , have extremes of body size, muscle mass, or nutritional status, or are non- or non-. According to the National Kidney Foundation, irrespective of diagnosis, the stage of the disease is based on the level of kidney function: Stage Description GFR(mL/min/1.73 m(2)) 1 Kidney damage with normal or decreased GFR 90 2 Kidney damage with mild decrease in GFR 60-89 3 Moderate decrease in GFR 30-59 4 Severe decrease in GFR 15-29 5 Kidney failure <15 (or dialysis) 5 standing order 6 Because ethnic data is not always readily available, this report includes an eGFR for both -Americans and non- Americans. The National Kidney Disease Education Program (NKDEP) does not endorse the use of the MDRD equation for patients that are not between the ages of 18 and 70, are , have extremes of body size, muscle mass, or nutritional status, or are non- or non-. According to the National Kidney Foundation, irrespective of diagnosis, the stage of the disease is based on the level of kidney function: Stage Description GFR(mL/min/1.73 m(2)) 1 Kidney damage with normal or decreased GFR 90 2 Kidney damage with mild decrease in GFR 60-89 3 Moderate decrease in GFR 30-59 4 Severe decrease in GFR 15-29 5 Kidney failure <15 (or dialysis) 7 PLEASE CHECK LABS TODAY. 8 Because ethnic data is not always readily available, this report includes an eGFR for both -Americans and non- Americans. The National Kidney Disease Education Program (NKDEP) does not endorse the use of the MDRD equation for patients that are not between the ages of 18 and 70, are , have extremes of body size, muscle mass, or nutritional status, or are non- or non-. According to the National Kidney Foundation, irrespective of diagnosis, the stage of the disease is based on the level of kidney function: Stage Description GFR(mL/min/1.73 m(2)) 1 Kidney damage with normal or decreased GFR 90 2 Kidney damage with mild decrease in GFR 60-89 3 Moderate decrease in GFR 30-59 4 Severe decrease in GFR 15-29 5 Kidney failure <15 (or dialysis) 9 Because ethnic data is not always readily available, this report includes an eGFR for both -Americans and non- Americans. The National Kidney Disease Education Program (NKDEP) does not endorse the use of the MDRD equation for patients that are not between the ages of 18 and 70, are , have extremes of body size, muscle mass, or nutritional status, or are non- or non-. According to the National Kidney Foundation, irrespective of diagnosis, the stage of the disease is based on the level of kidney function: Stage Description GFR(mL/min/1.73 m(2)) 1 Kidney damage with normal or decreased GFR 90 2 Kidney damage with mild decrease in GFR 60-89 3 Moderate decrease in GFR 30-59 4 Severe decrease in GFR 15-29 5 Kidney failure <15 (or dialysis) 10 Acute inflammation: >10.00 11 Because ethnic data is not always readily available, this report includes an eGFR for both -Americans and non- Americans. The National Kidney Disease Education Program (NKDEP) does not endorse the use of the MDRD equation for patients that are not between the ages of 18 and 70, are , have extremes of body size, muscle mass, or nutritional status, or are non- or non-. According to the National Kidney Foundation, irrespective of diagnosis, the stage of the disease is based on the level of kidney function: Stage Description GFR(mL/min/1.73 m(2)) 1 Kidney damage with normal or decreased GFR 90 2 Kidney damage with mild decrease in GFR 60-89 3 Moderate decrease in GFR 30-59 4 Severe decrease in GFR 15-29 5 Kidney failure <15 (or dialysis) 12 REFERENCE VALUE <=1.0 (Negative) Test Performed by: [address] [id number] 13 Please check labs in 1 month 14 Acute inflammation: >10.00 15 Please check labs in 1 month 16 Because ethnic data is not always readily available, this report includes an eGFR for both -Americans and non- Americans. The National Kidney Disease Education Program (NKDEP) does not endorse the use of the MDRD equation for patients that are not between the ages of 18 and 70, are , have extremes of body size, muscle mass, or nutritional status, or are non- or non-. According to the National Kidney Foundation, irrespective of diagnosis, the stage of the disease is based on the level of kidney function: Stage Description GFR(mL/min/1.73 m(2)) 1 Kidney damage with normal or decreased GFR 90 2 Kidney damage with mild decrease in GFR 60-89 3 Moderate decrease in GFR 30-59 4 Severe decrease in GFR 15-29 5 Kidney failure <15 (or dialysis) 17 Acute inflammation: >10.00 18 Test Performed by: [facility] [address] [place] [address] 19 Acute inflammation: >10.00 20 Test Performed by: [facility] [address] [place] [address] 21 Because ethnic data is not always readily available, this report includes an eGFR for both -Americans and non- Americans. The National Kidney Disease Education Program (NKDEP) does not endorse the use of the MDRD equation for patients that are not between the ages of 18 and 70, are , have extremes of body size, muscle mass, or nutritional status, or are non- or non-. According to the National Kidney Foundation, irrespective of diagnosis, the stage of the disease is based on the level of kidney function: Stage Description GFR(mL/min/1.73 m(2)) 1 Kidney damage with normal or decreased GFR 90 2 Kidney damage with mild decrease in GFR 60-89 3 Moderate decrease in GFR 30-59 4 Severe decrease in GFR 15-29 5 Kidney failure <15 (or dialysis) 22 Acute inflammation: >10.00 23 REFERENCE VALUE <20.0 (Negative) Test Performed by: [facility] - [address] [address] 24 Negative for cANCA and pANCA patterns by immunofluorescence. ADDITIONAL INFORMATION This test was developed and its performance characteristics determined by [facility] in a manner consistent with CLIA requirements. This test has not been cleared or approved by the U.S. Food and Drug Administration. Test Performed by: [facility] - [address] [address] Test Performed by: [facility] - [address] [address] 26 REFERENCE VALUE Not Applicable 27 RESULT: HLA-B27 antigen was not detected. ADDITIONAL INFORMATION Method: Flow Cytometry Performing Laboratory CLIA# [id number] Test Performed by: [facility] - [address] [id number] 28 ADDITIONAL INFORMATION This test was developed and its performance characteristics determined by [facility] in a manner consistent with CLIA requirements. This test has not been cleared or approved by the U.S. Food and Drug Administration. 29 ADDITIONAL INFORMATION This test was developed and its performance characteristics determined by [facility] in a manner consistent with CLIA requirements. This test has not been cleared or approved by the U.S. Food and Drug Administration. 30 ADDITIONAL INFORMATION This test was developed and its performance characteristics determined by [facility] in a manner consistent with CLIA requirements. This test has not been cleared or approved by the U.S. Food and Drug Administration. Test Performed by: [address] [id number] 31 Because ethnic data is not always readily available, this report includes an eGFR for both -Americans and non- Americans. The National Kidney Disease Education Program (NKDEP) does not endorse the use of the MDRD equation for patients that are not between the ages of 18 and 70, are , have extremes of body size, muscle mass, or nutritional status, or are non- or non-. According to the National Kidney Foundation, irrespective of diagnosis, the stage of the disease is based on the level of kidney function: Stage Description GFR(mL/min/1.73 m(2)) 1 Kidney damage with normal or decreased GFR 90 2 Kidney damage with mild decrease in GFR 60-89 3 Moderate decrease in GFR 30-59 4 Severe decrease in GFR 15-29 5 Kidney failure <15 (or dialysis) 32 Acute inflammation: >10.00 33 Serologic response to B. burgdorferi infection is not detected, but cannot rule out early infection during which low or undetectable antibody levels to B. burgdorferi may be present. If clinically indicated, a new serum specimen should be submitted in 7-14 days. Test Performed by: [facility] [address] [place] [address] 34 RESULT: No apparent monoclonal protein on serum electrophoresis. Test Performed by: [address] [id number] 35 Copy Result to: HAYLEY BUSH ([id number]) 36 REFERENCE VALUE <=1.0 (Negative) Test Performed by: [address] [address] 37 REFERENCE VALUE <1.0 (Negative) Test Performed by: [address] [address] 38 Because ethnic data is not always readily available, this report includes an eGFR for both -Americans and non- Americans. The National Kidney Disease Education Program (NKDEP) does not endorse the use of the MDRD equation for patients that are not between the ages of 18 and 70, are , have extremes of body size, muscle mass, or nutritional status, or are non- or non-. According to the National Kidney Foundation, irrespective of diagnosis, the stage of the disease is based on the level of kidney function: Stage Description GFR(mL/min/1.73 m(2)) 1 Kidney damage with normal or decreased GFR 90 2 Kidney damage with mild decrease in GFR 60-89 3 Moderate decrease in GFR 30-59 4 Severe decrease in GFR 15-29 5 Kidney failure <15 (or dialysis) 39 Because ethnic data is not always readily available, this report includes an eGFR for both -Americans and non- Americans. The National Kidney Disease Education Program (NKDEP) does not endorse the use of the MDRD equation for patients that are not between the ages of 18 and 70, are , have extremes of body size, muscle mass, or nutritional status, or are non- or non-. According to the National Kidney Foundation, irrespective of diagnosis, the stage of the disease is based on the level of kidney function: Stage Description GFR(mL/min/1.73 m(2)) 1 Kidney damage with normal or decreased GFR 90 2 Kidney damage with mild decrease in GFR 60-89 3 Moderate decrease in GFR 30-59 4 Severe decrease in GFR 15-29 5 Kidney failure <15 (or dialysis) 40 Because ethnic data is not always readily available, this report includes an eGFR for both -Americans and non- Americans. The National Kidney Disease Education Program (NKDEP) does not endorse the use of the MDRD equation for patients that are not between the ages of 18 and 70, are , have extremes of body size, muscle mass, or nutritional status, or are non- or non-. According to the National Kidney Foundation, irrespective of diagnosis, the stage of the disease is based on the level of kidney function: Stage Description GFR(mL/min/1.73 m(2)) 1 Kidney damage with normal or decreased GFR 90 2 Kidney damage with mild decrease in GFR 60-89 3 Moderate decrease in GFR 30-59 4 Severe decrease in GFR 15-29 5 Kidney failure <15 (or dialysis) 41 RUN DATE: 08/01/13 [facility] LAB LIVE PAGE 1 RUN TIME: [address] [place] [id number] Specimen Inquiry Name: SHAYY ALEX : [address]: Rafy Chris MD Acct: [id number] Unit: [id number] AGE: 62 Location: [place] Re07/29/13 SEX: F [place] [facility] [place]: [id number] ROHINI: 07/29/13- [facility] DR: Rafy Chris MD REQ: [id number] RECD: 07/29/13 STATUS: SOUT _ ORDERED: LEVEL III FINAL DIAGNOSIS Knee, right, shavings: Hyperplastic synovium with mild chronic inflammation and fragments of fibrocartilage with marked myxoid degeneration and reactive changes. PRE-OPERATIVE DIAGNOSIS Right medial and lateral meniscus tear. GROSS DESCRIPTION The specimen is received in formalin labeled Shayy Alex, Right Knee Shavings, and consists of a 2.2 x 1.1 x 0.8 cm. aggregate of yellow and white tissue fragments. Flat Breakdown Processor sections, one cassette. Signed (signature on file) Harjit Rich MD 1424 END OF REPORT * ML=Testing performed at Main Lab DEPARTMENT OF PATHOLOGY, [address] [place] [address] Harjit Rich M.D. Director [facility] Permit #[id number] 42 Because ethnic data is not always readily available, this report includes an eGFR for both -Americans and non- Americans. The National Kidney Disease Education Program (NKDEP) does not endorse the use of the MDRD equation for patients that are not between the ages of 18 and 70, are , have extremes of body size, muscle mass, or nutritional status, or are non- or non-. According to the National Kid[employer] Foundation, irrespective of diagnosis, the stage of the disease is based on the level of kidney function: Stage Description GFR(mL/min/1.73 m(2)) 1 Kidney damage with normal or decreased GFR 90 2 Kidney damage with mild decrease in GFR 60-89 3 Moderate decrease in GFR 30-59 4 Severe decrease in GFR 15-29 5 Kidney failure <15 (or dialysis) 43 Because ethnic data is not always readily available, this report includes an eGFR for both -Americans and non- Americans. The National Kidney Disease Education Program (NKDEP) does not endorse the use of the MDRD equation for patients that are not between the ages of 18 and 70, are , have extremes of body size, muscle mass, or nutritional status, or are non- or non-. According to the National Kidney Foundation, irrespective of diagnosis, the stage of the disease is based on the level of kidney function: Stage Description GFR(mL/min/1.73 m(2)) 1 Kidney damage with normal or decreased GFR 90 2 Kidney damage with mild decrease in GFR 60-89 3 Moderate decrease in GFR 30-59 4 Severe decrease in GFR 15-29 5 Kidney failure <15 (or dialysis) 44 -- REFERENCE VALUE -- <20.0 (Negative) Test Performed by: [place] [address] Truck Shop Supervisor: Claude Brewster III, M.D. 45 Test Performed by: [place] [address] [employer] Supervisor: Claude Brewster III, M.D. 46 No bands detected 47 No bands detected 48 Specific serologic response to B. burgdorferi infection is not detected, but cannot rule out early infection during which low or undetectable antibody levels to B. burgdorferi may be present. If clinically indicated, a new serum specimen should be submitted in 7-14 days. CDC criteria require >=5 bands for IgG or >=2 bands for IgM for the Immunoblot to be considered positive. Bands (e.g.,p41) may be detected in patients without Lyme disease, and patterns not meeting the CDC criteria should be interpreted with caution. Immunoblot should be ordered only on specimens that are positive or equivocal by a FDA-licensed Lyme disease antibody screening test (e.g., EIA). Test Performed by: [facility] [place] [address] [employer] Supervisor: Cluade Brewster III, M.D. 49 CC: Dr. Bush, labs to be drawn by 05/25/13 50 CC: Dr. Bush, labs to be drawn by 05/25/13 51 CC: Dr. Bush, labs to be drawn by 05/25/13 52 CC: Dr. Bush, labs to be drawn by 05/25/13 53 CC: Dr. Bush, labs to be drawn by 05/25/13 54 Because ethnic data is not always readily available, this report includes an eGFR for both -Americans and non- Americans. The National Kidney Disease Education Program (NKDEP) does not endorse the use of the MDRD equation for patients that are not between the ages of 18 and 70, are , have extremes of body size, muscle mass, or nutritional status, or are non- or non-. According to the National Kidney Foundation, irrespective of diagnosis, the stage of the disease is based on the level of kidney function: Stage Description GFR(mL/min/1.73 m(2)) 1 Kidney damage with normal or decreased GFR 90 2 Kidney damage with mild decrease in GFR 60-89 3 Moderate decrease in GFR 30-59 4 Severe decrease in GFR 15-29 5 Kidney failure <15 (or dialysis) Procedures Date CPT Code Description Status 04/14/2018 37111 Holter Monitor Review (24 hr)dr review & interp only Completed 04/12/2018 55461 ECG Monitor/Recording W/Visual Superimposition Scanning Completed 04/05/2018 28480 ECHO Transthoracic, Real-Time 2D With Doppler And Color Completed Flow 04/05/2018 66219 ECHO Transthoracic, Real-Time 2D With Doppler And Color Completed Flow 03/19/2018 06541 EKG Tracing & Interpretation Completed 12/08/2017 Bone Mineral Density Test Completed 11/05/2017 62275 Nerve Conduction 01-02 Studies Completed 11/05/2017 40609 Needle Electromyography Each Extremity W/Related Completed Paraspinal Areas 09/02/2017 30830 Inject/Drain Joint/Bursa Major W/O US Completed 06/15/2017 46579 Inject/Drain Joint/Bursa Major W/O US Completed 04/29/2016 81359 EKG Tracing & Interpretation Completed 10/13/2015 13470 Holter Monitoring 24 HR New Completed 10/11/2015 23667 Holter Monitoring 24 HR New Completed 10/03/2015 00455 EKG Tracing & Interpretation Completed 07/18/2015 47015 EKG Tracing & Interpretation Completed 11/17/2013 78397 Rad Exam; Pelvis Completed 11/17/2013 16393 Rad Exam; Hip Unilat Comp Completed 11/17/2013 76950 Rad Shoulder Comp, Min. 2 Views Completed 09/06/2013 40253 Holter Monitoring 24 HR New Completed 08/29/2013 64409 Arthroscopy,Knee,Meniscectomy Media & Lateral Completed 08/19/2013 66404 EKG Tracing & Interpretation Completed 07/29/2013 86929 Arthroscopy,Knee,Meniscectomy Media & Lateral Completed 07/29/2013 26709 Arthroscopy,Knee,Meniscectomy Media & Lateral Completed 05/20/2013 92261 ECHO Transthoracic, Real-Time 2D With Doppler And Color Completed Flow 05/18/2013 15219 EKG Tracing & Interpretation Completed 05/03/2013 97162 Inject/Drain Joint/Bursa Major W/O US Completed 07/02/2012 23075 Xray Knee 3 Views Completed 07/02/2012 98955 Xray Knee 3 Views Completed 07/02/2012 49539 Rad Exam; Knee, Ap&L Completed 07/02/2012 90971 Rad Exam; Knee, Ap&L Completed 05/17/2012 05561 Inject Tendon Sheath Or Ligament Aponeurosis Eg Plantar Completed Fascia 02/13/2010 71317 Rad Shoulder Comp, Min. 2 Views Completed 01/08/2010 72099 Rad Shoulder Comp, Min. 2 Views Completed 01/08/2010 47470 Rad Exam; Spine, Cervical Completed 09/14/2008 49478 ECHO/Stress Completed 09/14/2008 93333 Stress Test Completed 09/14/2008 15150 Stress Test Completed 10/19/2003 65765 Color Doppler Completed 10/19/2003 67726 Pulse Doppler & Continuous Wave Completed 10/19/2003 00283 Echocardiogram Completed 01/30/2003 36238 Stress Test Completed Encounters Type Date Location Provider CPT E/M Dx Office Visit 06/18/2018 [facility] Shonda Cuellar M.D. 22707 M25.551 3:00p Of Clarissa M16.11 Office Visit 05/19/2018 9:00a [facility] Vashti Perez, N.P. 20021 I49.3 I49.1 I10 E78.5 Office Visit 05/18/2018 9:00a [facility] [place], [employer] 87653 M35.3 [facility] M60.89 Z79.899 Z79.52 M85.9 Office Visit 04/15/2018 9:00a [facility] Of [place], 03033 M35.3 Xu Vanessa Z79.52 Z79.899 M60.89 A88.1 M25.559 Office Visit 03/19/2018 8:30a [facility] Vashti Perez N.P. 63404 R55 R00.2 I10 E87.6 E78.5 Office Visit 03/01/2018 11:40a [facility] [place], 76198 M35.3 Xu M.D. Z79.52 Z79.899 M54.2 Office Visit 01/14/2018 4:40p [facility] [place], 39995 M35.3 Xu M.DDinora Z79.52 Z79.899 Office Visit 12/30/2017 9:30a [facility] [address] R06.02 Services Of [employer] J98.6 R06.83 Office Visit 12/28/2017 11:30a [facility] [place], 42357 M35.3 Xu M.DDinora M54.2 Z79.52 Z79.899 R06.00 Office Visit 12/03/2017 4:40p [facility] [place], 28251 M35.3 Xu Vanessa M54.2 Z79.52 M60.89 Office Visit 11/17/2017 4:00p [facility]c [facility], 52777 J11.89 Services Of Xu Vanessa M60.89 Office Visit 11/09/2017 10:00a [facility] [place], 37005 M35.3 Xu Vanessa M60.89 M06.4 M54.2 M25.559 M54.6 Office Visit 11/05/2017 9:15a [facility] Oc [facility], 19492 J11.89 Rasheeda M60.89 Office Visit 10/23/2017 2:30p [facility] Oc Rocha 90440 J11.89 Rasheeda M60.89 Office Visit 10/14/2017 10:00a [facility], 06439 M79.1 Services Of Xu Vanessa R53.1 R74.8 Office Visit 09/02/2017 8:30a [facility] Of Shonda Cuellar M.D. 96212 M25.562 C.M.ADinora M25.462 M17.12 W19.xxxA Office Visit 06/15/2017 3:30p [facility] Of Shonda Cuellar M.D. 13663 M25.562 C.M.A. M25.462 M17.12 Office Visit 03/23/2017 11:00a [facility] Of Shonda Cuellar M.D. 29780 M25.552 C.M.A. M16.12 M70.62 M76.02 Office Visit 07/15/2016 12:33p [facility] Lamar Gatica, 48686 N20.0 Hospitalists Rasheeda R09.02 K21.9 I10 Office Visit 07/13/2016 12:31p [facility] Muriel Cook, 64209 N20.0 Assoc,pc [employer] Hospitalists K21.9 I10 Office Visit 04/29/2016 9:00a [facility] Nestor Rogers M.D. 97581 R00.2 I10 E87.6 E78.5 Office Visit 10/24/2015 8:30a [facility] NAE Frye 98717 R00.2 I10 E87.6 E78.5 Office Visit 10/03/2015 8:30a [facility] NAE Frye 54461 R00.2 E87.6 I10 Office Visit 07/18/2015 1:20p [facility] Nestor Rogers M.D. 11271 R25.2 R00.2 Office Visit 01/03/2015 10:30a [facility] Of Stew Hsieh M.D. 81967 354.0 C.M.A. 727.09 726.10 Office Visit 04/18/2014 9:00a [facility], 97603 782.0 Services Of Xu Vanessa Office Visit 03/30/2014 2:00p [facility] Nestor Rogers 38957 785.1 MNirav 276.8 Office Visit 02/15/2014 2:00p [facility] Of Shonda Cuellar M.D. 81184 726.5 C.M.A. Office Visit 01/27/2014 9:30a [facility] Of Shonda Cuellar M.D. 46367 726.5 C.M.A. Office Visit 01/04/2014 12:30p [facility] Of Shonda Cuellar M.D. 37204 726.5 C.M.A. 840.9 Office Visit 11/30/2013 1:30p [facility] Of Shonda Cuellar M.D. 41239 715.31 C.M.A. 715.35 726.5 Office Visit 11/17/2013 8:45a [facility] Of Shonda Cuellar M.D. 43410 715.35 C.M.A. 715.31 726.5 Office Visit 08/19/2013 9:50a [facility] Nestor Rogers M.D. 75361 785.1 278.00 401.1 Office Visit 07/07/2013 8:20a [facility] CARMEL Inman 86016 715.16 Of [facility] 719.46 844.8 719.49 Office Visit 06/23/2013 2:45p [facility] Of Cinthia Kelley, 60046 836.0 C.M.A. RPA-C Office Visit 06/14/2013 9:15a [facility] Of Rafy Chris M.D. 35735 844.9 C.M.A. Office Visit 05/25/2013 3:00p [facility] Leopoldo Juventino, 04151 719.49 Of Xu Vanessa 795.79 715.16 Office Visit 05/18/2013 11:20a [facility] Nestor Rogers M.D. 28168 785.1 424.0 278.00 Office Visit 04/29/2013 11:15a [facility] Of Rafy Chris M.D. 69391 719.46 C.M.A. Office Visit 02/15/2013 9:15a [facility] Of Rafy Chris M.D. 67979 844.8 C.M.A. Office Visit 01/04/2013 8:00a [facility] Of Rafy Chris M.D. 08883 844.8 C.M.A. 728.89 Office Visit 07/02/2012 9:45a [facility] Of Rafy Chris M.D. 72220 719.46 C.M.ADinora Office Visit 06/28/2012 9:45a [facility] Of [place] 78976 727.03 Clarissa Stephen M.D. Office Visit 05/17/2012 9:15a [facility] [place] 69766 727.03 Clarissa Stephen M.D. Office Visit 10/21/2011 11:15a [facility] Of Rafy Chris M.D. 39151 840.4 C.M.Ning Office Visit 10/06/2011 2:00p [facility] [place] ArayaDinora 77953 840.4 Clarissa Alba R.P.A.-C Office Visit 02/13/2010 2:00p [facility] Of [place] 27186 840.9 Josh CarpenterSRisa.-O Office Visit 01/24/2010 9:00a [facility] Lv Dahl, 38640 723.4 Of [facility] Rasheeda Office Visit 01/08/2010 8:30a [facility] Of [place], 92833 723.4 Josh CarpenterSDinoraA.-O Office Visit 10/02/2008 2:40p [facility] Nestor Rogers, 62270 785.1 Rasheeda 786.59 Office Visit 09/14/2008 11:15a [facility] ECHO Schedule 25675 424.0 785.1 786.59 Office Visit 09/14/2008 11:40a [facility] Nestor Rogers M.D. 67655 424.0 785.1 786.59 Plan of Care Future Appointment(s):09/02/2018 9:00 am - CARMEL Inman at [facility]08/17/2018 10:20 am - Nestor Rogers M.D. at [facility]07/02/2018 - CK InmanPM35.3 Polymyalgia rheumaticaComments: Prednisone taper:~B_ The symptoms of PMR are sensitive to small changes in the dose of steroid, a very gradual decrease of this medicine is recommended~b_We will continue to slowly decrease the dose ofprednisone. The goal is to find the lowest dose that keeps aching and stiffness under control. Please take 5 mg prednisone for 4 weeks then reduce it to 4 mg/day for 4 weeks.Then will continue the taper by 1 mg every 4 weeks.Please get labs today in 4 weeks, and prior to next visit.Please continue on MTX 5 tabs/week.Follow up:2 xtwrkV11.89 Other myositis, multiple sitesComments:We discussed the many reasons that can cause a slightly elevated CK.At this time there is no need foe further workup.R74.8 Abnormal levels of other serum enzymesComments:Elevate CK with no [id number] Disorder of bone density and structure, unspecifiedComments:On prednisone:You should be getting at least 1200 mg of calcium and 1000 IU of Vitamin D on a daily basis in your diet and/or with supplementation. Calcium citrate is the most bioavailable preparation; calcium fortified orange juice is an excellent source. It is also very important to be doing weight bearing exercises regularly.Z79.899 Other meterman (current) drug therapyNew Medication :Folic Acid 1 mg
--- OUTSIDE RECORDS SUMMARY | 2018-07-06 03:06 | XMS REPORT ---
:1950 External Reference #:[id number] Author Organization [employer] Address [address] [address] [place] [address] Phone [phone] Care Team Providers Name Role Phone Hayley Bush MD Primary Care Physician Unavailable Payers Type Date Identification Numbers Payment Provider Subscriber Health Maintenance Effective: Policy Number: Medicare Earl Alex Organization (O) 09/28/2016 [id number] [facility] Group Number: [id number] [address] PayID: [id number] CASSIE Guzman [address] Medigap Part B Expires: 09/27/2016 Policy Number: [id number] Medicare Shayy Alex PayID: [id number] [address] [place] [address] Medigap Part B Effective: 09/28/2013 Policy Number: BS Facets Shayy Ariasgwyn [id number] Expires: 12/26/2013 PayID: [id number] [address] [address] CASSIE Guzman [address] Problems Date Description Provider Status Onset: 05/20/2013 [...] Cancer : (age 51 Father due to [place] Years) : (age 74 Mother due to [...] Form Strength Qnty SIG Indications Ordering Provider Methotrexate 05/18 Active Tablets 2.5mg 20tab 5 tbs by M35.3 Zsofi /2017 s mouth every 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 by mouth Prednisone 12/03 Active Tablets 5mg 90tab take one M35.3 Zsofia s tablet Phu, daily for 4 GROUP HOME SUPERVISOR weeks Caltrate 600+D 12/03 Active Chewtabs 600-800mg 180un take one Plus -Unit its capsule/tab [place], let by M.D. mouth twice daily, avoid yellow dye Ranitidine HCL 05/18 Active Capsules 150mg 60cap 1 po bid s Ordering Provider Xanax 05/18 Active Tablets 0.25mg 30tab 1/2 -1 s tablet po Ordering tid prn Provider anxiety Vitamin B 12 Active Tablets 1000mcg/M 1ml Im q Unknown / L month Losartan Potassium Active Tablets 25mg 1 by mouth Unknown every day Potassium Active 10Meq 2 tabs po qd Meclizine HCL Active Tablets 12.5mg 2 tabs 3 Swetha /0000 times a day IV , Santos (pt has not S, M.D. taken) Ondansetron Active Tablets 4mg as needed Swetha /0000 Dispers (pt has not Santos HAIRSTON taken) S, M.D. Methotrexate 12/28 Hx Tablets 2.5mg 30tab take 6 M35.3 s capsules/ta [place], - blets by M.D. 05/18 mouth once weekly, do not start until you finish [facility] Prednisone 11/30 Hx Tablets 10mg 60tab take 2 M35.3 s capsule/tab [place], - let daily M.D. 12/03 by mouth Prednisone 11/09 Hx Tablets 10mg 90tab take [...] 2 tablet s daily F. - Sue, 04/28 M.D. Klor-Con 10 12/02 Hx Tablets 10Meq 60tab 2 by mouth ER s every day F. - Sue, 03/22 M.D. Potassium Chloride 10/24 Hx Packet 20Meq 30uni 1 by mouth ts every day F. - Nicoleusechris, 12/02 M.D. Pravastatin Sodium 10/24 Hx Tablets 20mg 30tab 1 po E78.5 s 3x/week qhs F. - (MWF) (on , 11/23 hold as of .. /201511/23/15) Potassium Chloride 01/15 Hx Packet 20Meq 30Pac 1 by mouth kets every day F. - Sue, 10/24.D. Potassium 11/14 Hx Powder 20Meq 30Pac 1 po qd Qutayb kets S. - Maghaydah 01/15 , .D. Aldactone 09/27 Hx Tablets 25mg 30tab 1/2 po qd s F. - Seu, 10/27.D. Spironolactone 09/08 Hx Tablets 25mg 30tab 1 po qd s (not yet Ordering - started Provider 09/2609/07/13) Hydrocodone/Acetam 08/29 Hx Tablets 5-325mg 40tab 1-2 po qid Rafy inophen /2012 s prn pain Cinthia Chris M.D. 10/27 Triamterene/Hydroc 08/14 Hx Capsules 37.5-25mg 15cap 1 po qd Unknown hlorothiazide /2012 s - 09/08 Klor-Con M20 08/02 Hx Tablets 20Meq 60tab 1 po bid ER s F. - Sue, 08/19 M.D. Ultram ER 07/15 Hx Tablets 100mg ER 24HR Cinthia Orlando M.D. 08/29 Ultram 07/15 Hx Tablets 50mg 60tab 1-2 tablets s q4-6 hours Aries, - prn pain M.D. 08/29 [place] 07/01 Hx Tablets 5-325mg 60tab take 1-2 s tab po tid Aries, - prn pain M.D. 08/19 Nabumetone 05/27 Hx Tablets 500mg 60tab 1 po bid 719.49 Leopoldo /2012 myron Jauregui, - M.D. 07/07 Diclofenac Sodium 05/25 Hx Tablets 75mg 60tab 1 tab by Toribio.[address] sanches mouth twice Endo, - a day M.D. 05/27 Effervescent 05/19 Hx Tablets 25Meq 30tab 1 po qday Nestor Potassium /2012 Yvan Rogers, 08/02 M.D. Toprol XL 05/18 Hx Tablets 25mg 30tab 1/2 po qd ER 24HR s Ordering - Provider 05/18 Hydrochlorothiazid 05/18 Hx Capsules 12.5mg 30cap 1 po qd Other s Ordering - Provider 08/19 Vitamin B12 TR 05/18 Hx Inj a monthly Ordering - Provider 03/29 Effervescent 05/18 Hx Tablets 20Meq 7tabs 1 po qday Nestor Potassium Yvan Rogers, 05/19 M.D. Kdur 09/26 Hx tablets 20meq 7unit 1 po qd x 1 Qutaybeh /2007 s week S. - Jahairaydusman 05/18 , M.D. /2012 Klor-Con Hx Packet 20Meq 1 po qd Unknown /0000 - 09/08 Spironolactone/Hyd Hx Tablets 25-25mg 1 [...] 30uni 1 tablet Nestor /0000 ts daily Dinora Rogers, 12/11 M.D. Cyclobenzaprine Hx Tablets 10mg [...] - day 1; 1 01/14 tab by /2017 mouth every day on days 2-5 Medications Administered in Office Medication Date Status Form Strength Qnty SIG Indications Ordering Provider Depomedrol Administered Injection Shonda 40MG 017 Rasheeda Cuellar Depomedrol Administered Injection Shonda 40MG 017 Rasheeda Cuellar Depomedrol Administered Injection Rafy 80MG 013 Rasheeda Chris Celestone 3 mg Administered Injection Nory and 3mg 012 Allison acosta M.D. Vital Signs Date Vital Result Comment 06/18/2018 Height 63 inches 5'3" Weight 166.00 [...] 223 C Reactive Protein 5.45 mg/L <8.01 CBC Auto Diff 05/19/2018 White Blood Count [...] Blood Cells % 0 Laboratory test finding 05/19/2018 Creatine Kinase(CK) 554 U/L High 10- 223 2 Comp Metabolic Panel 05/19/2018 Sodium 142 mmol/L [...] Egfr Non- 72.2 >60 Egfr 87.3 >60 3 Laboratory test finding 05/19/2018 C Reactive Protein 12.08 mg/L High < 8.01 4 Erythrocyte Sed Rate 30 mm/Hr 0-40 5 Comp Metabolic Panel 04/15/2018 Sodium 140 mmol/L [...] Reactive Protein 9.80 mg/L High <8.01 7 Laboratory test finding 03/19/2018 Erythrocyte Sed Rate 28 mm/Hr 0-40 C Reactive Protein 11.82 mg/L High <8.01 Laboratory test finding 03/19/2018 Creatine Kinase(CK) 558 U/L High 10- 223 Comp Metabolic Panel 03/19/2018 Sodium 141 mmol/L [...] Non- 71.1 >60 Egfr 86.1 >60 8 CBC Auto Diff 03/19/2018 White Blood Count [...] 0-2 Nucleated Red Blood Cells % 0 Lipid Panel - JFM 03/19/2018 Creatine Kinase(CK) <pending> Laboratory test finding 03/19/2018 Magnesium 2.0 mg/dL 1.9-2.7 Laboratory test finding 03/04/2018 Creatine Kinase(CK) 603 U/L High 10- 223 Erythrocyte Sed Rate 18 mm/Hr 0-40 C Reactive Protein 7.96 mg/L High < 5.00 9 Comp Metabolic Panel 03/04/2018 Sodium 140 mmol/L [...] Egfr Non- 73.2 >60 Egfr 94.2 >60 10 Comp Metabolic Panel 02/08/2018 Sodium 142 [...] Non- 81.9 >60 Egfr 105.3 >60 31 Protein Electrophoresis 10/21/2017 Total Protein(Pep) 6.8 g/dL 6.3 - 7.9 Albumin 3.4 g/dL 3.4-4.7 Alpha-1 Globulin 0.3 g/dL 0.1-0.3 Alpha-2 Globulin 1.1 g/dL 0.6-1.0 Beta Globulin 1.1 g/dL 0.7-1.2 Gamma Globulin 1.0 g/dL 0.6-1.6 Albumin/Globulin Ratio 0.99 Impression See Comment 32 Laboratory test finding 10/21/2017 C Reactive Protein 35.16 mg/L High < 5.00 33 TSH (Thyroid Stim Horm) 0.65 mcIU/mL 0.34-5.60 Free T4 (Free Thyroxine) 0.92 ng/dL 0.61-1.12 Lyme Disease Serology Negative Negative 34 Laboratory test finding 10/16/2017 Creatine Kinase(CK) 701 U/L High 10- 223 35 Anti Nuclear Antibody 0.3 U 36 Pamela-1 Antibody <0.2 U 37 CBC Auto Diff 04/21/2015 White Blood Count [...] Blood Cells % 0 Comp Metabolic Panel 04/21/2015 Sodium 139 mmol/L [...] Non- 68.8 >60 Egfr 88.5 >60 38 Laboratory test finding 04/21/2015 Magnesium 1.9 mg/dL 1.9-2.7 Basic Metabolic Panel 11/21/2013 Sodium 140 mmol/L [...] <15 (or dialysis) 2 standing order 3 Because ethnic data is not always readily [...] 15-29 5 Kidney failure <15 (or dialysis) 4 standing order 5 standing order 6 Because ethnic data [...] 5 Kidney failure <15 (or dialysis) 9 Acute inflammation: >10.00 10 Because ethnic data is not always readily [...] 15-29 5 Kidney failure <15 (or dialysis) 11 Because ethnic data is not always [...] REFERENCE VALUE <=1.0 (Negative) Test Performed by: [address] [address] 13 Please check labs in 1 month [...] Acute inflammation: >10.00 18 Test Performed by: [place] [address] 19 Acute inflammation: >10.00 20 Test Performed by: [place] [address] 21 Because ethnic data is not always [...] REFERENCE VALUE <20.0 (Negative) Test Performed by: [place] [address] 24 Negative for cANCA and pANCA patterns by immunofluorescence. ADDITIONAL INFORMATION This test was developed and its performance characteristics determined by [facility] in a manner consistent with CLIA requirements. This test has not been cleared or approved by the U.S. Food and Drug Administration. Test Performed by: [facility] [employer] - [address] [address] 25 Test Performed by: [facility] - [address] [address] 26 REFERENCE VALUE Not Applicable 27 RESULT: HLA-B27 antigen was not detected. ADDITIONAL INFORMATION Method: Flow Cytometry Performing Laboratory CLIA# [id number] Test Performed by: [facility] - [address] [address] 28 ADDITIONAL INFORMATION This test was developed and its performance characteristics determined by [facility] in a manner consistent with CLIA requirements. This test has not been cleared or approved by the U.S. Food and Drug Administration. 29 ADDITIONAL INFORMATION This test was developed and its performance characteristics determined by [facility] in a manner consistent with CLIA requirements. This test has not been cleared or approved by the U.S. Food and Drug Administration. 30 ADDITIONAL INFORMATION This test was developed and its performance characteristics determined by [facility] in a manner consistent with CLIA requirements. This test has not been cleared or approved by the U.S. Food and Drug Administration. Test Performed by: [facility] [employer] - [address] [address] 31 Because ethnic data is not always [...] 5 Kidney failure <15 (or dialysis) 32 RESULT: No apparent monoclonal protein on serum electrophoresis. Test Performed by: [address] [address] 33 Acute inflammation: >10.00 34 Serologic response to B. burgdorferi infection is not detected, but cannot rule out early infection during which low or undetectable antibody levels to B. burgdorferi may be present. If clinically indicated, a new serum specimen should be submitted in 7-14 days. Test Performed by: [facility] [address] [place] [address] 35 Copy Result to: HAYLEY BUSH ([id number]) 36 REFERENCE VALUE <=1.0 (Negative) Test Performed by: [address] [address] 37 REFERENCE VALUE <1.0 (Negative) Test Performed by: [address] [address] 38 Because ethnic data is not always [...] <15 (or dialysis) 41 RUN DATE: 08/01/13 [facility] LAB LIVE PAGE 1 RUN TIME: [address] [place] [address] Specimen Inquiry Name: ZULYSHAYY [place] : [address]: Rafy Chris MD Acct: [id number] Unit: [id number] AGE: 62 Location: OR Re07/29/13 SEX: F Status: REG [facility] SPEC: [id number] ROHINI: 07/29/13- [facility] DR: Rafy Chris MD REQ: [id number] RECD: 07/29/13 STATUS: SOUT _ ORDERED: LEVEL [...] aggregate of yellow and white tissue fragments. Home Support Worker sections, one cassette. Signed (signature on file) Harjit Rich MD 1424 END OF REPORT * ML=Testing performed at Main Lab DEPARTMENT OF PATHOLOGY, [address] [place] [address] Harjit Rich M.D. Director [facility] Permit #[id number] 42 Because ethnic data is not always [...] VALUE -- <20.0 (Negative) Test Performed by: [place] [address] Rig Manager: Claude [place] III, M.D. 45 Test Performed by: [place] [address] Rig Manager: Claude [place] III, M.D. 46 No bands [...] screening test (e.g., EIA). Test Performed by: [place] [address] Rig Manager: Claude [place] III, M.D. 49 CC: Dr. Bush, [...] Procedures Date CPT Code Description Status 04/14/2018 73329 Holter Monitor Review (24 hr)dr review & interp only Completed 04/12/2018 93323 ECG Monitor/Recording W/Visual Superimposition Scanning Completed 04/05/2018 71545 ECHO Transthoracic, Real-Time 2D With Doppler And Color Completed Flow 04/05/2018 70819 ECHO Transthoracic, Real-Time 2D With Doppler And Color Completed Flow 03/19/2018 60154 EKG Tracing & Interpretation Completed 12/08/2017 Bone Mineral Density Test Completed 11/05/2017 21091 Nerve Conduction - Studies Completed 11/05/2017 27784 Needle Electromyography Each Extremity W/Related Completed Paraspinal Areas 09/02/2017 57640 Inject/Drain Joint/Bursa Major W/O US Completed 06/15/2017 23499 Inject/Drain Joint/Bursa Major W/O US Completed 04/29/2016 01763 EKG Tracing & Interpretation Completed 10/13/2015 33691 Holter Monitoring 24 HR New Completed 10/11/2015 12549 Holter Monitoring 24 HR New Completed 10/03/2015 22965 EKG Tracing & Interpretation Completed 07/18/2015 40524 EKG Tracing & Interpretation Completed 11/17/2013 54751 Rad Exam; Pelvis Completed 11/17/2013 66372 Rad Exam; Hip Unilat Comp Completed 11/17/2013 44946 Rad Shoulder Comp, Min. 2 Views Completed 09/06/2013 66069 Holter Monitoring 24 HR New Completed 08/29/2013 90836 Arthroscopy,Knee,Meniscectomy Media & Lateral Completed 08/19/2013 38564 EKG Tracing & Interpretation Completed 07/29/2013 15416 Arthroscopy,Knee,Meniscectomy Media & Lateral Completed 07/29/2013 44077 Arthroscopy,Knee,Meniscectomy Media & Lateral Completed 05/20/2013 08636 ECHO Transthoracic, Real-Time 2D With Doppler And Color Completed Flow 05/18/2013 30269 EKG Tracing & Interpretation Completed 05/03/2013 62925 Inject/Drain Joint/Bursa Major W/O US Completed 07/02/2012 35266 Xray Knee 3 Views Completed 07/02/2012 22365 Xray Knee 3 Views Completed 07/02/2012 03209 Rad Exam; Knee, Ap&L Completed 07/02/2012 61272 Rad Exam; Knee, Ap&L Completed 05/17/2012 27718 Inject Tendon Sheath Or Ligament Aponeurosis Eg Plantar Completed Fascia 02/13/2010 05413 Rad Shoulder Comp, Min. 2 Views Completed 01/08/2010 41767 Rad Shoulder Comp, Min. 2 Views Completed 01/08/2010 68257 Rad Exam; Spine, Cervical Completed 09/14/2008 23327 ECHO/Stress Completed 09/14/2008 14066 Stress Test Completed 09/14/2008 88953 Stress Test Completed 10/19/2003 32831 Color Doppler Completed 10/19/2003 80149 Pulse Doppler & Continuous Wave Completed 10/19/2003 63989 Echocardiogram Completed 01/30/2003 55773 Stress Test Completed Encounters Type Date Location Provider CPT E/M Dx Office Visit 05/19/2018 9:00a [facility] Vashti Perez, N.P. 50677 I49.3 I49.1 I10 E78.5 Office Visit 05/18/2018 9:00a [facility] CARMEL In[place] [address] [facility] M60.89 Z79.899 Z79.52 M85.9 Office Visit 04/15/2018 9:00a [facility] [place] [address] M35.3 Xu Vanessa Z79.52 Z79.899 M60.89 A88.1 M25.559 Office Visit 03/19/2018 8:30a [facility] Vashti Perez, N.P. 49696 R55 R00.2 I10 E87.6 E78.5 Office Visit 03/01/2018 11:40a [facility] [place] [address]267 M35.3 Xu Vanessa Z79.52 Z79.899 M54.2 Office Visit 01/14/2018 4:40p [facility] [place] [address] M35.3 Xu Vanessa Z79.52 Z79.899 Office Visit 12/30/2017 9:30a [facility] [place] [address] [address] [facility] J98.6 R06.83 Office Visit 12/28/2017 11:30a [facility] [place], [address]262 M35.3 Manager Review M.DDinora M54.2 Z79.52 Z79.899 R06.00 Office Visit 12/03/2017 4:40p [facility] [place], 04355 M35.3 Manager Review M.Morgan M54.2 Z79.52 M60.89 Office Visit 11/17/2017 4:00p [facility] Oc Rocha, 77403 J11.89 Services Of Xu Vanessa M60.89 Office Visit 11/09/2017 10:00a [facility] [place], [address] M35.3 Manager Review Osman.Morgan M60.89 M06.4 M54.2 M25.559 M54.6 Office Visit 11/05/2017 9:15a [facility] Oc Rocha, 15614 J11.89 M.Morgan M60.89 Office Visit 10/23/2017 2:30p [facility] Oc Rocha, 60820 J11.89 Rasheeda M60.89 Office Visit 10/14/2017 10:00a [facility] Oc Rocha, 16368 M79.1 Services Of Xu Vanessa R53.1 R74.8 Office Visit 09/02/2017 8:30a [facility] Of Shonda Cuellar M.D. 13683 M25.562 C.M.A. M25.462 M17.12 W19.xxxA Office Visit 06/15/2017 3:30p [facility]onda Cuellar M.D. 01964 M25.562 C.M.A. M25.462 M17.12 Office Visit 03/23/2017 11:00a [facility] Shonda Cuellar M.D. 08748 M25.552 C.M.A. 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 09123 R00.2 I10 E87.6 E78.5 Office Visit 10/24/2015 8:30a [facility] NAE Frye 58191 R00.2 I10 E87.6 E78.5 Office Visit 10/03/2015 8:30a [facility] NAE Frye 21910 R00.2 E87.6 I10 Office Visit 07/18/2015 1:20p [facility] Nestor Rogers M.D. 78485 R25.2 R00.2 Office Visit 01/03/2015 10:30a [facility] Of Stew Hsieh M.D. 98242 354.0 C.M.A. 727.09 726.10 Office Visit 04/18/2014 9:00a [facility] Oc Rocha, 61552 782.0 Services Of Xu Vanessa Office Visit 03/30/2014 2:00p [facility] Nestor Rogers, 43317 785.1 M.DDinora 276.8 Office Visit 02/15/2014 2:00p [facility] Shonda Cuellar M.D. 06763 726.5 C.M.A. Office Visit 01/27/2014 9:30a [facility] Shonda Cuellar M.D. 44842 726.5 C.M.A. Office Visit 01/04/2014 12:30p [facility] Shonda Cuellar M.D. 71757 726.5 C.M.A. 840.9 Office Visit 11/30/2013 1:30p [facility] Shonda Cuellar M.D. 26482 715.31 C.M.A. 715.35 726.5 Office Visit 11/17/2013 8:45a [facility] Shonda Cuellar M.D. 69362 715.35 C.M.A. 715.31 726.5 Office Visit 08/19/2013 9:50a [facility] Nestor Rogers M.D. 10646 785.1 278.00 401.1 Office Visit 07/07/2013 8:20a [facility] Services Elena Bay, GROUP HOME SUPERVISOR [address] [facility] 719.46 844.8 719.49 Office Visit 06/23/2013 2:45p [facility] Of Cinthia Warren, 86727 836.0 C.M.A. RPA-C Office Visit 06/14/2013 9:15a [facility] Of Rafy Chris M.D. 52905 844.9 C.M.A. Office Visit 05/25/2013 3:00p [facility] Services Leopoldo Jauregui, 60812 719.49 Of Xu Vanessa 795.79 715.16 Office Visit 05/18/2013 11:20a [facility] Nestor Rogers M.D. 28541 785.1 424.0 278.00 Office Visit 04/29/2013 11:15a [facility] Of Rafy Chris M.D. 08672 719.46 C.M.A. Office Visit 02/15/2013 9:15a [facility] Of Rafy Chris M.D. 80318 844.8 C.M.A. Office Visit 01/04/2013 8:00a [facility] Of Rafy Chris M.D. 38780 844.8 C.M.ADinora 728.89 Office Visit 07/02/2012 9:45a [facility] Of Rafy Chris M.D. 42521 719.46 C.M.A. Office Visit 06/28/2012 9:45a [facility] Of Nory 78722 727.03 C.Geovanna Stephen M.D. Office Visit 05/17/2012 9:15a [facility] [place] 82432 727.03 C.MIgor Stephen M.D. Office Visit 10/21/2011 11:15a [facility] Of Rafy Chris M.D. 94363 840.4 C.M.ADinora Office Visit 10/06/2011 2:00p [facility] Of Bowen ArayaDinora 35866 840.4 Clarissa Alba R.P.A.-Everett Office Visit 02/13/2010 2:00p [facility] Of Petra, 82216 840.9 Josh CarpenterSDinoarA.-O Office Visit 01/24/2010 9:00a [facility] Services Lv BrewerDinora Dahl, [address] [facility] Rasheeda Office Visit 01/08/2010 8:30a [facility] Of Petra, 04606 723.4 Josh CarpenterSDinoraA.-O Office Visit 10/02/2008 2:40p [facility] Nestor Rogers, 30408 785.1 Rasheeda 786.59 Office Visit 09/14/2008 11:15a [facility] ECHO Schedule 62555 424.0 785.1 786.59 Office Visit 09/14/2008 11:40a [facility] Nestor Rogers M.D. 06592 424.0 785.1 786.59 Plan of Care Future Appointment(s):08/17/2018 10:20 am - Nestor Rogers M.D. at [facility]07/13/2018 10:30 am - CARMEL Inman at [facility]06/18/2018 - Shonda Cuellar M.D.M25.551 Pain in right hipNew Xrays:Hip Right 2 Views And Pelvis 16022 - [id number] up:Follow up: call for r hip us injM16.11 Unilateral primary osteoarthritis, right hip
--- NOTE | 2018-07-06 03:43 | ED ---
Dizziness - HPI Summary HPI Summary: A 67 y/o F presents to ED with c/o dizziness onset 0100 this date. Pt got up to use the bathroom and felt very dizzy. Denies vomiting. Pt says she is feeling better at bedside. Past episodes of vertigo a long time ago. She took anti- vertigo medication [employer] but thinks it may have been . PMHx: HTN. She takes her HTN medication at night. - History Of Current Complaint Chief Complaint: EDDizziness Stated Complaint: DIZZINESS Time Seen by Provider: 07/06/18 03:39 Hx Obtained From: Patient, Family/Operations And Maintenance Supervisor Onset/Duration: Still Present - milder Timing: Constant Severity Initially: Mild Severity Currently: Mild Character: Dizzy Associated Signs And Symptoms: Negative: Vomiting - Allergies/Home Medications Allergies/Adverse Reactions: Allergies Allergy/AdvReac Type Severity Reaction Status Date / Time celecoxib [From Celebrex] Allergy Intermediate Fatigue Verified 07/06/18 03:22 amoxicillin Allergy GI Upset Verified 07/06/18 03:22 cefuroxime Allergy Nausea And Verified 07/06/18 03:22 Vomiting cephalexin Allergy Dizziness Verified 07/06/18 03:22 ciprofloxacin Allergy Dizziness Verified 07/06/18 03:22 clarithromycin Allergy Nausea Verified 07/06/18 03:22 clavulanic acid Allergy GI Upset Verified 07/06/18 03:22 [From Augmentin] hydrocodone Allergy Nausea Verified 07/06/18 03:22 Penicillins Allergy Itching Verified 07/06/18 03:22 PMH/Surg Hx/FS Hx/Imm Hx Previously Healthy: No Endocrine/Hematology History: Denies: Hx Diabetes Cardiovascular History: Reports: Hx Hypertension - ON MEDS, Other Cardiovascular Problems/Disorders - CLEAN CARDIAC CATHETERIZATION, HX OF GERD ALSO Denies: Hx Pacemaker/ICD GI History: Reports: Hx Gastroesophageal Reflux Disease, Hx Hiatal Hernia - ? 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 Sensory History: Reports: Hx Contacts or Glasses - Reading only Denies: Hx Hearing Aid Opthamlomology History: Reports: Hx Contacts or Glasses - Reading only Neurological History: Reports: Other Neuro Impairments/Disorders - vertigo Psychiatric History: Reports: Hx Anxiety, Hx Depression - XANAX PRN , RARELY USES Denies: Hx Panic Disorder - Cancer History Hx Chemotherapy: No Hx Radiation Therapy: No - Surgical History Surgery Procedure, Year, and Place: cath 2008,cholecystectomy 1969, vein stripped 2011, 2 c-sections, Bilateral knee arthroscopic, Hx Anesthesia Reactions: No - Immunization History Date of Tetanus Vaccine: utd Date of Influenza Vaccine: 06/2018 Infectious Disease History: No Infectious Disease History: Denies: Traveled Outside the [place] in Last 30 Days - Family History Known Family History: Positive: Cardiac Disease, Diabetes, Other - kidney stone (sister) Negative: Hypertension - Social History Occupation: Employed Full-time Lives: With Family Alcohol Use: None Hx Substance Use: No Substance Use Type: Reports: None Hx Tobacco Use: Yes Smoking Status (MU): Former Smoker Review of Systems Negative: Fever Negative: Cough Negative: Vomiting Neurological: Other - pos: dizziness All Other Systems Reviewed And Are Negative: Yes Physical Exam - Summary Physical Exam Summary: VITAL SIGNS: Reviewed. GENERAL: Patient is a well-developed and nourished FEMALE who is lying comfortable in the stretcher. Patient is not in any acute respiratory distress. HEAD AND FACE: No signs of trauma. No ecchymosis, hematomas or skull depressions. No sinus tenderness. EYES: PERRLA, EOMI x 2, No injected conjunctiva, no nystagmus. EARS: Hearing grossly intact. Ear canals and tympanic membranes are within normal limits. MOUTH: Oropharynx within normal limits. NECK: Supple, trachea is midline, no adenopathy, no JVD, no carotid bruit, no c- spine tenderness, neck with full ROM. CHEST: Symmetric, no tenderness at palpation LUNGS: Clear to auscultation bilaterally. No wheezing or crackles. CVS: Regular rate and rhythm, S1 and S2 present, no murmurs or gallops appreciated. ABDOMEN: Soft, non-tender. No signs of distention. No rebound no guarding, and no masses palpated. Bowel sounds are normal. EXTREMITIES: FROM in all major joints, no edema, no cyanosis or clubbing. NEURO: Alert and oriented x 3. No acute neurological deficits. Speech is normal and follows commands. SKIN: Dry and warm Triage Information Reviewed: Yes Vital Signs On Initial Exam: Initial Vitals Temp Pulse Resp BP Pulse Ox 97.2 F 73 16 158/85 97 07/06/18 02:48 07/06/18 02:48 07/06/18 02:48 07/06/18 02:48 07/06/18 02:48 Vital Signs Reviewed: Yes - Esdras Coma Scale Best Eye Response: 4 - Spontaneous Best Motor Response: 6 - Obeys Commands Best Verbal Response: 5 - Oriented Coma Scale Total: 15 Diagnostics - Vital Signs Vital Signs Temp Pulse Resp BP Pulse Ox 07/06/18 02:48 97.2 F 73 16 158/85 97 - Laboratory Result Diagrams: 07/06/18 04:25 07/06/18 04:25 Lab Statement: Any lab studies that have been ordered have been reviewed, and results considered in the medical decision making process. - CT Brain CT CT Interpretation: No Acute Changes - Impression: No acute findings. ED provider has reviewed this report. CT Interpretation Completed By: Radiologist Re-Evaluation - Re-Evaluation 1 Re-Evaluation Time: 06:04 Change: Improved Comment: Pt is feeling better. Dizzy Course/Dx - Course Course Of Treatment: Pt is a 67 y/o F with past episodes of vertigo presents with dizziness onset 0100 this date. Pt got up to use the bathroom and felt very dizzy. PMHx: HTN. She takes her HTN medication at night. After treatment in ED, pt is feeling better, will D/C home. - Diagnoses Provider Diagnoses: Benign positional vertigo Discharge - Sign-Out/Discharge Documenting (check all that apply): Patient Departure - DC - Discharge Plan Condition: Stable Disposition: HOME Patient Education Materials: Benign Paroxysmal Positional Vertigo (ED) Referrals: Sheng Bush MD [Primary Care Provider] - 2 Days Additional Instructions: Follow up with your primary care provider in 2-3 days. RETURN TO THE EMERGENCY DEPARTMENT FOR CHANGING OR WORSENING SYMPTOMS. - Attestation Statements Document Initiated by Scribe: Yes Documenting Scribe: Nicolas Singletary Provider For Whom Scribe is Documenting (Include Credential): Dr. Rachelle Cummins MD Scribe Attestation: Nicolas Rosa, scribed for Dr. Rachelle Cummins MD on 07/06/18 at 0618.
[2018-07-06] MEDS ORDERED: Meclizine TAB* 12.5 MG PO ONE (04:14)
[2018-07-06 04:38] LABS: ABS Basophils 0 10^3/ul (0-0.2); ABS Eosinophils 0.1 10^3/ul (0-0.6); ABS Lymphocytes 1.7 10^3/ul (1.0-4.8); ABS Monocytes 0.5 10^3/ul (0-0.8); ABS Neutrophils 4.6 10^3/ul (1.5-7.7); ABS Nucleated RBC 0 10^3/ul; Eosinophil % 1.4 % (0-6); Hematocrit 38 % (35-47); Hemoglobin 12.7 g/dl (12.0-16.0); Lymphocyte % 24.9 % (25-47); Mean Corpuscular HGB Conc 33 g/dl (31-36); Mean Corpuscular Hemoglobin 30 pg (27-31); Mean Corpuscular Volume 90 fL (80-97); Mean Platelet Volume 8.5 um3 (7.4-10.4); Nucleated Red Blood Cells % 0; Platelet Count 206 10^3/ul (150-450); Red Blood Count 4.25 10^6/ul (4.00-5.40); Red Cell Distribution Width 14 % (10.5-15)
[2018-07-06] MEDS ORDERED: Ondansetron ODT TAB* 4 MG SL ONE (04:42)
[2018-07-06 04:58] LABS: EGFR Non-African American 75.5 (>60)
--- NOTE | 2018-07-06 05:51 | RAD ---
EXAM: CT Head Without Intravenous Contrast CLINICAL HISTORY: 67 years old, female; Signs and symptoms; Dizziness; Patient HX: Pt C/O dizziness coupled with nausea. States she woke up to go to the bathroom when she noted she was dizzy. ; Additional info: Vertigo TECHNIQUE: Axial computed tomography images of the head/brain without intravenous contrast. All CT scans at this facility use at least one of these dose optimization techniques: automated exposure control; mA and/or kV adjustment per patient size (includes targeted exams where dose is matched to clinical indication); or iterative reconstruction. COMPARISON: No relevant prior studies available. FINDINGS: Brain: No acute intracranial hemorrhage. No intracranial mass or mass effect. The belcher matter is intact. 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 Ventricles: No ventriculomegaly. Bones/joints: Unremarkable. No acute fracture. Soft tissues: Unremarkable. Vasculature: Vascular calcification. Sinuses: Unremarkable as visualized. No acute sinusitis. Mastoid air cells: Unremarkable as visualized. No mastoid effusion. IMPRESSION: No acute findings. To contact [facility] with a general question: [facility] - [phone] For direct physician to physician contact: Physician Hotline - [phone] [facility] ([facility] Facility ID #[id number])
[2018-07-06 06:52] VITALS: BP 139/89
== END 2018-07-06 06:53 | disposition home or self-care (01) ==
LOC: ED 02:47
DX: H81.10 Benign paroxysmal vertigo, unspecified ear (principal); R42 Dizziness and giddiness; Z88.0 Allergy status to penicillin; I10 Essential (primary) hypertension; Z87.891 Personal history of nicotine dependence
CPT/HCPCS: 36415; 70450; 80053; 83735; 85025; 99283; A9270-GY

== ENCOUNTER 2018-07-10 17:41 | Emergency (ER) | payer MEDICARE ==
[2018-07-10] MEDS ORDERED: Acetaminophen TAB* 325 MG PO ONE (21:07)
[2018-07-10] MEDS ORDERED: Cyclobenzaprine TAB* 10 MG PO ONE ×2 (21:07→22:19)
[2018-07-10] MEDS ORDERED: Cyclobenzaprine TAB* 10 MG ONE (21:30)
[2018-07-10] MEDS ORDERED: Acetaminophen TAB* 325 MG ONE (21:30)
[2018-07-10 22:42] VITALS: BP 141/79
--- NOTE | 2018-07-11 00:18 | ED ---
Neck Pain - HPI Summary HPI Summary: Patient is a 67-year-old female presenting to the ED with a 2 day history of left sided neck pain. She denies any accidents or trauma. She states she first noticed the neck pain 2 days ago in the middle of the day and describes it as a tightness. She is never had this before. Denies any ear pain, head pain visual changes or disturbances. She states she is otherwise healthy. She has been taking Advil without relief. She has decreased range of motion to both sides and pain is worse with neck extension. Symptoms are not worse or better with positioning or better with rest. - History of Current Complaint Chief Complaint: EDNeckComplaint Stated Complaint: NECK PAIN Time Seen by Provider: 07/10/18 19:43 Hx Obtained From: Patient Onset/Duration Of Injury/Symptoms: Days Timing: Constant Onset/Duration: Sudden Onset Severity Initially: Moderate Severity Currently: Moderate Pain Intensity: 2 Pain Scale Used: 0-10 Numeric Location: Discrete At: - left sided neck pain Aggravating Factors: Nothing Alleviating Factors: Nothing - Allergies/Home Medications Allergies/Adverse Reactions: Allergies Allergy/AdvReac Type Severity Reaction Status Date / Time celecoxib [From Celebrex] Allergy Intermediate Fatigue Verified 07/10/18 17:49 amoxicillin Allergy GI Upset Verified 07/10/18 17:49 cefuroxime Allergy Nausea And Verified 07/10/18 17:49 Vomiting cephalexin Allergy Dizziness Verified 07/10/18 17:49 ciprofloxacin Allergy Dizziness Verified 07/10/18 17:49 clarithromycin Allergy Nausea Verified 07/10/18 17:49 clavulanic acid Allergy GI Upset Verified 07/10/18 17:49 [From Augmentin] hydrocodone Allergy Nausea Verified 07/10/18 17:49 Penicillins Allergy Itching Verified 07/10/18 17:49 PMH/Surg Hx/FS Hx/Imm Hx Previously Healthy: Yes Endocrine/Hematology History: Denies: Hx Diabetes Cardiovascular History: Reports: Hx Hypertension - ON MEDS, Other Cardiovascular Problems/Disorders - CLEAN CARDIAC CATHETERIZATION, HX OF GERD ALSO Denies: Hx Pacemaker/ICD GI History: Reports: Hx Gastroesophageal Reflux Disease, Hx Hiatal Hernia - ? 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 Sensory History: Reports: Hx Contacts or Glasses - Reading only Denies: Hx Hearing Aid Opthamlomology History: Reports: Hx Contacts or Glasses - Reading only Neurological History: Reports: Other Neuro Impairments/Disorders - vertigo Psychiatric History: Reports: Hx Anxiety, Hx Depression - XANAX PRN , RARELY USES Denies: Hx Panic Disorder - Cancer History Hx Chemotherapy: No Hx Radiation Therapy: No - Surgical History Surgery Procedure, Year, and Place: cath 2008,cholecystectomy 1969, vein stripped 2011, 2 c-sections, Bilateral knee arthroscopic, Hx Anesthesia Reactions: No - Immunization History Date of Tetanus Vaccine: utd Date of Influenza Vaccine: 06/2018 Hx Pertussis Vaccination: No Immunizations Up to Date: Yes Infectious Disease History: No Infectious Disease History: Denies: Traveled Outside the [place] in Last 30 Days - Family History Known Family History: Positive: Cardiac Disease, Diabetes, Other - kidney stone (sister) Negative: Hypertension - Social History Occupation: Unemployed Lives: With Family Alcohol Use: None Hx Substance Use: No Substance Use Type: Reports: None Hx Tobacco Use: Yes Smoking Status (MU): Former Smoker Review of Systems Constitutional: Negative Negative: Fever, Chills, Fatigue, Skin Diaphoresis Negative: Palpitations, Chest Pain Negative: Shortness Of Breath, Cough Genitourinary: Negative Positive: no symptoms reported, see HPI Positive: Arthralgia - left sided neck pain. Negative: Myalgia Negative: Rash, Bruising Neurological: Negative Psychological: Normal All Other Systems Reviewed And Are Negative: Yes Physical Exam Triage Information Reviewed: Yes Vital Signs On Initial Exam: Initial Vitals Temp Pulse Resp BP Pulse Ox 98 F 77 16 180/95 96 07/10/18 17:49 07/10/18 17:49 07/10/18 17:49 07/10/18 17:49 07/10/18 17:49 Vital Signs Reviewed: Yes Appearance: Positive: Well-Appearing, Well-Nourished Skin: Positive: Skin Color Reflects Adequate Perfusion Head/Face: Positive: Normal Head/Face Inspection Eyes: Positive: EOMI, RICHARD, Conjunctiva Clear Neck: Positive: Supple, Other: - tenderness to the L side of the neck Cardiovascular: Positive: RRR, Pulses are Symmetrical in both Upper and Lower Extremities Musculoskeletal: Positive: Pain @ - neck tenderness - L Neurological: Positive: Sensory/Motor Intact, Alert, Oriented to Person Place, Time, Speech Normal Psychiatric: Positive: Normal, Affect/Mood Appropriate AVPU Assessment: Alert Diagnostics - Vital Signs Vital Signs Temp Pulse Resp BP Pulse Ox 07/10/18 22:37 98.3 F 77 18 141/79 99 07/10/18 17:49 98 F 77 16 180/95 96 - Laboratory Lab Statement: Any lab studies that have been ordered have been reviewed, and results considered in the medical decision making process. Neck Course/Dx - Course Course Of Treatment: On physical examination, patient has tenderness over the left trapezius and levator scapula as well as some tenderness over the sternal cleidomastoid muscle of the left side. She denies any trauma or injury. She states she developed some left-sided tenderness 2 days ago and this has been constant. Denies any improvement with ibuprofen. She is not been using heat, but has been using ice at home. She states is never happened to her before. She is given a Flexeril in the ED with good relief, but continues to have a 3/ 10 tenderness. I've encouraged Flexeril and moist heat to the area. She will return for any worsening or changing symptoms. She is diagnosed with cervical strain. - Diagnoses Provider Diagnoses: Cervical strain, acute Discharge - Sign-Out/Discharge Documenting (check all that apply): Patient Departure - Discharge Plan Condition: Stable Disposition: HOME Prescriptions: Cyclobenzaprine TAB* [Flexeril TAB*] 10 mg PO TID #12 tab Patient Education Materials: Cervical Strain (ED) Referrals: Sheng Bush MD [Primary Care Provider] - Additional Instructions: Heat to the area NO ICE ibpurofen 600mg three times daily Tylenol 650mg three times daily Use these intermittently - take one every 3 hours Flexeril up to three times daily for muscle spasms - Billing Disposition and Condition Condition: STABLE Disposition: Home
== END 2018-07-10 22:37 | disposition home or self-care (01) ==
LOC: ED 17:41
DX: S16.1XXA Strain of muscle, fascia and tendon at neck level, initial encounter (principal); X58.XXXA Exposure to other specified factors, initial encounter; Y92.9 Unspecified place or not applicable; I10 Essential (primary) hypertension; F41.9 Anxiety disorder, unspecified; F32.9 Major depressive disorder, single episode, unspecified; Z88.6 Allergy status to analgesic agent; Z88.1 Allergy status to other antibiotic agents; Z88.5 Allergy status to narcotic agent; Z88.0 Allergy status to penicillin; Z87.891 Personal history of nicotine dependence
CPT/HCPCS: 99282; A9270-GY

== ENCOUNTER 2018-11-17 09:56 | Day surgery (SDC) | payer MEDICARE ==
[~2018-11-17 09:56] MED LIST changes: +Acetaminophen TAB* 325 MG PO PRN; +Buffered Lidocaine 1% SYRIN* 1 ML/SYRINGE INTRADERM ONE; +Cyclopentolate 1% OPTH.SOL* 2 ML BTL ONE; +Ketorolac 0.5% OPHTH (NF) 0.5 % 5 ML BTL ONE; -Ketorolac INJ* 30 MG/ML 1 ML VIAL IV PUSH ONE; +Lidocaine 1%* 5 ML VIAL ONE; +Lidocaine 2% EPI 1:200000 MPF*10-20 ML VIAL ONE; -NS 0.9% 1000 ML* 1,000 ML IV ONE; +Neomycin/Polymy/Dex OPTH.SUSP* MAXITROL 0.1% 5 ML ONE; -Ondansetron INJ* 2 MG/ML VIAL IV ONE; -Ondansetron INJ* 2 MG/ML VIAL ONE; +Phenylephrine 2.5% OPTH.SOL* 2 ML BTL ONE; +Povidone Iodine 5% OPTH* 30 ML BTL ONE; +Proparacaine 0.5% OPHTH.SOL* 15 ML BTL ONE; +acetaZOLAMIDE TAB* 250 MG ONE; -cefTRIAXone(*) 2 GM ADDV.VIAL IVPB ONE
[2018-11-17] MEDS ORDERED: Midazolam* 1 MG/ML 2 ML VIAL (2 MG) ONE (12:00)
[2018-11-17 12:55] VITALS: BP 139/84
--- NOTE | 2018-11-17 13:49 | OP ---
OPERATIVE NOTE: DATE OF OPERATION: 11/17/18 DATE OF : 46 SURGEON: Booker Gibson MD. PREOPERATIVE DIAGNOSIS: Cataract, left eye. POSTOPERATIVE DIAGNOSIS: Cataract, left eye. OPERATIVE PROCEDURE: Extracapsular cataract extraction with intraocular lens implant, left eye. PROCEDURE: The patient was brought to the operating room after being given 1/2% Alcaine with epineph rine drops in the preoperative area. The eye was prepped and draped in the usual sterile fashion. S terile drape and eyelid speculum were placed. Again, topical 1/2% Alcaine with epinephrine was given . A paracentesis incision was made at the 3 o'clock position with the No.75 blade. Clear cornea inc ision 2.2 x 2.2-mm was created at the 6 o'clock position starting at the anterior limbus using the 2. 2-mm keratome. The anterior chamber was irrigated with 0.4 mL of 1% non-preservative intracameral li docaine and filled with DisCoVisc. A capsulorrhexis was completed using the cystotome and the Utrata forceps. Hydrodissection was performed with balanced salt solution. The lens nucleus was removed wi th the Phacoemulsification handpiece without incident. Cortex was removed with the irrigation-aspira tion handpiece. The capsular bag was re-inflated using DisCoVisc and an SN60WF 18.5 implant was inse rted with the shooter. The irrigation-aspiration handpiece was used to remove all residual DisCoVisc . The eye was refilled with balanced salt solution and the wound checked and found to be watertight. Topical Maxitrol drops were given. [id number]/[facility] #: [id number]
== END 2018-11-17 13:04 | disposition home or self-care (01) ==
LOC: OREAST 09:56
PROVIDERS: ATTEND Specialist
DX: H25.812 Combined forms of age-related cataract, left eye (principal); H35.3131 Nonexudative age-related macular degeneration, bilateral, early dry stage; Z87.891 Personal history of nicotine dependence; I10 Essential (primary) hypertension; K21.9 Gastro-esophageal reflux disease without esophagitis; M35.3 Polymyalgia rheumatica
CPT/HCPCS: A9270-GY; J2250; V2632

== ENCOUNTER 2019-08-03 16:51 | Emergency (ER) | payer MEDICARE ==
[2019-08-03] MEDS ORDERED: Acetaminophen TAB* 325 MG PO ONE (17:49)
[2019-08-03] MEDS ORDERED: Ondansetron ODT TAB* 4 MG PO ONE (17:50)
--- NOTE | 2019-08-03 17:51 | ED ---
Head Injury - HPI Summary HPI Summary: Patient complains of head injury, nausea, dizziness status post mechanical fall today at 4:40 PM. Patient fell backwards hitting back of her head on concrete. Patient and family deny LOC, vision change, altered mental status, bleeding, oral trauma, neck pain, back pain, amnesia. Patient ambulatory. No anti-coag. - History Of Current Complaint Chief Complaint: EDHeadInjury Stated Complaint: HIT HEAD FROM FALL PER PT Time Seen by Provider: 08/03/19 17:29 Hx Obtained From: Patient, Family/Doctor Of Chiropractic Mechanism Of Injury: Fall From A Standing Position Onset/Duration: Started Hours Ago Onset of Pain: Immediate Severity Currently: Severe Severity Initially: Severe Pain Intensity: 10 Pain Scale Used: 0-10 Numeric Location of Head Injury: Occipital Character: Throbbing Aggravating Factor(s): Movement Associated Signs And Symptoms: Nausea - Allergies/Home Medications Allergies/Adverse Reactions: Allergies Allergy/AdvReac Type Severity Reaction Status Date / Time celecoxib [From Celebrex] Allergy Intermediate Fatigue Verified 11/24/18 09:02 amoxicillin Allergy GI Upset Verified 11/24/18 09:02 cefuroxime Allergy Nausea And Verified 11/24/18 09:02 Vomiting cephalexin Allergy Dizziness Verified 11/24/18 09:02 ciprofloxacin Allergy Dizziness Verified 11/24/18 09:02 clarithromycin Allergy Nausea Verified 11/24/18 09:02 clavulanic acid Allergy GI Upset Verified 11/24/18 09:02 [From Augmentin] hydrocodone Allergy Nausea Verified 11/24/18 09:02 latex Allergy itchy Verified 11/24/18 09:02 Penicillins Allergy Itching Verified 11/24/18 09:02 bandaid Allergy Itching Uncoded 11/24/18 09:02 PMH/Surg Hx/FS Hx/Imm Hx Endocrine/Hematology History: Denies: Hx Diabetes Cardiovascular History: Reports: Hx Hypertension - ON MEDS, Other Cardiovascular Problems/Disorders - CLEAN CARDIAC CATHETERIZATION, HX OF GERD ALSO Denies: Hx Pacemaker/ICD GI History: Reports: Hx Gastroesophageal Reflux Disease, Hx Hiatal Hernia - ? 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 Sensory History: Reports: Hx Cataracts - BILATERAL, Hx Contacts or Glasses - Reading only Denies: Hx Hearing Aid Opthamlomology History: Reports: Hx Cataracts - BILATERAL, Hx Contacts or Glasses - Reading only EENT History: Denies: Hx Deafness Neurological History: Reports: Other Neuro Impairments/Disorders - vertigo Psychiatric History: Reports: Hx Anxiety, Hx Depression - XANAX PRN , RARELY USES Denies: Hx Panic Disorder - Cancer History Hx Chemotherapy: No Hx Radiation Therapy: No - Surgical History Surgery Procedure, Year, and Place: cath 2008,cholecystectomy 1969, vein stripped 2011, 2 c-sections, Bilateral knee arthroscopic, Hx Anesthesia Reactions: No - Immunization History Date of Tetanus Vaccine: utd Date of Influenza Vaccine: 06/2018 Infectious Disease History: No Infectious Disease History: Denies: Traveled Outside the [place] in Last 30 Days - Family History Known Family History: Positive: Cardiac Disease, Diabetes, Other - kidney stone (sister) Negative: Hypertension - Social History Alcohol Use: None Hx Substance Use: No Substance Use Type: Reports: None Hx Tobacco Use: Yes Smoking Status (MU): Former Smoker Amount Used/How Often: SOCIALLY X 15 YEARS Have You Smoked in the Last Year: No Review of Systems Constitutional: Negative Eyes: Negative ENT: Negative Cardiovascular: Negative Respiratory: Negative Positive: Nausea Genitourinary: Negative Musculoskeletal: Negative Skin: Negative Neurological: Negative Psychological: Normal All Other Systems Reviewed And Are Negative: Yes Physical Exam - Summary Physical Exam Summary: Hematoma to the top of posterior head with no evidence of wound or bleeding. Full range of motion of neck and jaw. No evidence of trauma to face, mouth. Patient moving all 4 extremities freely without indication of pain. No pain with palpation of back, chest, abdomen. Neuro exam normal. Patient ambulates without difficulty. Triage Information Reviewed: Yes Vital Signs On Initial Exam: Initial Vitals Temp Pulse Resp BP Pulse Ox 97.6 F 98 18 168/97 99 08/03/19 16:54 08/03/19 16:54 08/03/19 16:54 08/03/19 16:54 08/03/19 16:54 Vital Signs Reviewed: Yes Appearance: Positive: Well-Appearing Skin: Positive: Warm Head/Face: Positive: Normal Head/Face Inspection Eyes: Positive: Normal ENT: Positive: Normal ENT inspection Dental: Negative: Dental Fracture @, Bleeding Neck: Positive: Supple Respiratory/Lung Sounds: Positive: Clear to Auscultation Cardiovascular: Positive: Normal Abdomen Description: Positive: Nontender Musculoskeletal: Positive: Normal Neurological: Positive: Normal Psychiatric: Positive: Normal AVPU Assessment: Alert - Catlett Coma Scale Best Eye Response: 4 - Spontaneous Best Motor Response: 6 - Obeys Commands Best Verbal Response: 5 - Oriented Coma Scale Total: 15 Procedures - Sedation Patient Received Moderate/Deep Sedation with Procedure: No Diagnostics - Vital Signs Vital Signs Temp Pulse Resp BP Pulse Ox 08/03/19 16:54 97.6 F 98 18 168/97 99 - Laboratory Lab Statement: Any lab studies that have been ordered have been reviewed, and results considered in the medical decision making process. Head Injury Course/Dx Course Of Treatment: Patient complains of head injury, nausea, dizziness status post mechanical fall today at 4:40 PM. Patient fell backwards hitting back of her head on concrete. Patient and family deny LOC, vision change, altered mental status, bleeding, oral trauma, neck pain, back pain, amnesia. Patient ambulatory. No anti-coag. Vital signs within normal limits. CT brain negative. - Diagnoses Provider Diagnoses: Head injury, Fall Discharge ED - Sign-Out/Discharge Documenting (check all that apply): Patient Departure - Discharge Plan Condition: Stable Disposition: HOME Prescriptions: Ondansetron ODT TAB* [Zofran 4 MG Odt TAB*] 4 mg PO Q8H PRN 4 Days #14 tab.odt PRN Reason: Nausea Patient Education Materials: Head Injury (ED) Referrals: Sheng Bush MD [Primary Care Provider] - Additional Instructions: Alternate ibuprofen 600 mg with Tylenol 650 mg every 3 hours as needed for pain. Take Zofran as directed for nausea if needed. Avoid activities where there is risk of repeat head injury until cleared by primary care. Return to the ED for any worsening symptoms. - Billing Disposition and Condition Condition: STABLE Disposition: Home - Attestation Statements Provider Attestation: I was available for consultation for this patient. I did not evaluate the patient or participate in any medical decision making or disposition decisions unless I am specifically named in the chart as having consulted on the patient. If I have consulted on the patient, please see my own ED note on the patient encounter. Allison Garza MD
--- OUTSIDE RECORDS SUMMARY | 2019-08-03 18:00 | XMS REPORT | Continuity of Care Document ---
:1950 External Reference #:[id number] Author Name Nestor Rogers M.D. 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 Onset: 05/25/2013 Immunological Findings Nonspecified Other Leopoldo Jauregui M.D. Onset: 2012 & Unspecified Localized, primary osteoarthritis of the Leopoldo Jauregui M.D. Onset: 2012 lower leg Obesity Nestor Rogers M.D. Onset: 08/19/2013 Hypokalemia Nestor Rogers M.D. Onset: 03/30/2014 Localized, primary sharon of the Shonda Cuellar M.D. Onset: 03/23/2017 pelvic region and thigh Trochanteric bursitis Shonda Cuellar M.D. Onset: 03/23/2017 Gluteal tendinitis Shonda Cuellar M.D. Onset: 03/23/2017 Localized, primary osteoarthritis Shonda Cuellar M.D. Onset: 06/15/2017 Social History Type Date Description Comments Sex Unknown Tobacco Use Start: Unknown Never Smoked Cigarettes ETOH Use Denies alcohol use Recreational Drug Use Denies Drug Use Tobacco Use Start: Unknown Patient has never smoked Smoking Status Reviewed: 10/30/19 Patient has never smoked Exercise Type/Frequency Does not exercise but plans to sign up today at [facility] Allergies, Adverse Reactions, Alerts Active Allergies Reaction Severity Comments Date Ceftin 10/02/2008 Cipro 10/02/2008 Keflex 10/02/2008 Celebrex 10/02/2008 Penicillin 03/23/2017 Amoxicillin 10/14/2017 Hydrocodone 10/14/2017 Clarithromycin 10/14/2017 Clavulanic Acid 10/14/2017 Medications Active Medications SIG Qnty Indications Ordering Date Provider Saline Nasal [place] prn Unknown 09/14/2018 Folic Acid take 1 tablet by 90tabs Z79.899 Booker Salvador, 07/02/2018 1mg mouth once daily M.D. Tablets Caltrate 600+D Plus take one 180units Booker Salvador, 12/03/2017 Minerals capsule/tablet by M.D. mouth twice daily, [id number] avoid yellow dye Chewtabs Ranitidine HCL 1 po bid 60caps Other Ordering 05/18/2013 Provider 150mg Capsules Xanax 1/2 -1 tablet po 30tabs Other Ordering 05/18/2013 0.25mg tid prn anxiety Provider Tablets Vitamin B 12 1ml Im q month Unknown 1000mcg/ML Tablets Losartan Potassium 1 by mouth every Unknown day 25mg Tablets Potassium 2 alternating with 90units Mauser, 10Meq 3 tabs daily if MD Nestor needed Meclizine HCL 2 tabs 3 times a Swetha IV , day (pt has not Santos Navas M.D. 12.5mg Tablets taken) prn Ondansetron as needed (pt has Swetha IV , 4mg not taken) Santos Navas M.D. Tablets Dispers Medications Administered in Office Medication SIG Qnty Indications Ordering Provider Date Depomedrol 40MG Shonda Cuellar M.D. 09/02/2017 Injection Depomedrol 40MG Shonda Cuellar M.D. 06/15/2017 Injection Depomedrol 80MG Rafy Chris M.D. 05/03/2013 Injection Celestone 3 mg and 3mg Nory Stephen, 05/17/2012 Injection MNirav Immunizations Description No Information Available Vital Signs Date Vital Result Comment 07/27/2019 4:07pm Height 63 inches 5'3" Weight 157.25 lb with shoes Heart Rate 62 /min BP Systolic Sitting 152 mmHg BP Diastolic Sitting 90 mmHg BP Systolic Standing 148 mmHg BP Diastolic Standing 90 mmHg BMI (Body Mass Index) 27.9 kg/m2 Ejection Fraction 55-60% echo 04/05/18 07/27/2019 3:55pm Height 63 inches 5'3" Weight 157.25 lb with shoes BMI (Body Mass Index) 27.9 kg/m2 Ejection Fraction 55-60% Echo 04/05/18 Results Test Acquired Date Facility Test Result H/L Range Note Laboratory test 04/29/2019 [facility] Erythrocyte Sed 11 mm/Hr Normal 0-[address] [place] [address] [phone] C Reactive Protein 5.48 mg/L Normal <8.01 Comp Metabolic 04/29/2019 [facility] Sodium 141 mmol/L Normal 135-[address] [place] [address] [phone] Potassium 4.0 mmol/L Normal 3.5-5.0 Chloride 108 mmol/L Normal 101-111 Co2 Carbon Dioxide 26 mmol/L Normal 22-32 Anion Gap 7 mmol/L Normal 2-11 Glucose 125 mg/dL High 70-100 Blood Urea Nitrogen 23 mg/dL Normal 6-24 Creatinine 0.80 mg/dL Normal 0.51-0.95 BUN/Creatinine Ratio 28.8 High 8-20 Calcium 9.7 mg/dL Normal 8.6-10.3 Total Protein 6.7 g/dL Normal 6.4-8.9 Albumin 4.4 g/dL Normal 3.2-5.2 Globulin 2.3 g/dL Normal 2-4 Albumin/Globulin Ratio 1.9 Normal 1-3 Total Bilirubin 0.80 mg/dL Normal 0.2-1.0 Alkaline Phosphatase 92 U/L Normal 34-104 Alt 14 U/L Normal 7-52 Ast 16 U/L Normal 13-39 Egfr Non- 70.9 >60 Egfr 85.8 >60 1 Laboratory test 04/29/2019 [facility] Creatine 558 U/L High 10 -[address] Kinase(CK) [place] [address] [phone] CBC Auto Diff 04/29/2019 [facility] White Blood 6.5 Normal 3.5 -10.[address] Count 10^3/[place] [address] [phone] Red Blood Count 4.18 10^6/uL Normal 3.70-4.87 Hemoglobin 12.2 g/dL Normal 12.0-16.0 Hematocrit 36 % Normal 35-47 Mean Corpuscular Volume 86 fL Normal 80-97 Mean Corpuscular Hemoglobin 29 pg Normal 27-31 Mean Corpuscular HGB Conc 34 g/dL Normal 31-36 Red Cell Distribution Width 14 % Normal 10-15 Platelet Count 212 10^3/uL Normal 150-450 Mean Platelet Volume 8.9 fL Normal 7.4-10.4 Abs Neutrophils 3.7 10^3/uL Normal 1.5-7.7 Abs Lymphocytes 2.1 10^3/uL Normal 1.0-4.8 Abs Monocytes 0.5 10^3/uL Normal 0-0.8 Abs Eosinophils 0.1 10^3/uL Normal 0-0.6 Abs Basophils 0.0 10^3/uL Normal 0-0.2 Abs Nucleated RBC 0.0 10^3/uL Granulocyte % 57.5 % Lymphocyte % 31.8 % Monocyte % 7.8 % Eosinophil % 2.3 % Basophil % 0.6 % Nucleated Red Blood Cells % 0.0 Laboratory test 03/10/2019 [facility] Creatine 548 U/L High 10 -[address] Kinase(CK) [place] [address] [phone] Erythrocyte Sed Rate 24 mm/Hr Normal 0-29 C Reactive Protein 18.65 mg/L High <8.01 CBC Auto 03/10/2019 [facility] White Blood 6.3 10^3/uL Normal 3.5-10.[address] [place] [address] [phone] Red Blood Count 4.43 10^6/uL Normal 3.70-4.87 Hemoglobin 12.6 g/dL Normal 12.0-16.0 Hematocrit 38 % Normal 35-47 Mean Corpuscular Volume 86 fL Normal 80-97 Mean Corpuscular Hemoglobin 29 pg Normal 27-31 Mean Corpuscular HGB Conc 33 g/dL Normal 31-36 Red Cell Distribution Width 13 % Normal 10-15 Platelet Count 206 10^3/uL Normal 150-450 Mean Platelet Volume 9.1 fL Normal 7.4-10.4 Abs Neutrophils 3.9 10^3/uL Normal 1.5-7.7 Abs Lymphocytes 1.7 10^3/uL Normal 1.0-4.8 Abs Monocytes 0.5 10^3/uL Normal 0-0.8 Abs Eosinophils 0.1 10^3/uL Normal 0-0.6 Abs Basophils 0.0 10^3/uL Normal 0-0.2 Abs Nucleated RBC 0.0 10^3/uL Granulocyte % 62.5 % Lymphocyte % 27.6 % Monocyte % 7.7 % Eosinophil % 1.9 % Basophil % 0.3 % Nucleated Red Blood Cells % 0.1 Comp Metabolic 03/10/2019 [facility] Sodium 142 mmol/L Normal 135-[address] [place] [address] [phone] Potassium 3.9 mmol/L Normal 3.5-5.0 Chloride 109 mmol/L Normal 101-111 Co2 Carbon Dioxide 26 mmol/L Normal 22-32 Anion Gap 7 mmol/L Normal 2-11 Glucose 116 mg/dL High 70-100 Blood Urea Nitrogen 19 mg/dL Normal 6-24 Creatinine 0.79 mg/dL Normal 0.51-0.95 BUN/Creatinine Ratio 24.1 High 8-20 Calcium 9.7 mg/dL Normal 8.6-10.3 Total Protein 6.8 g/dL Normal 6.4-8.9 Albumin 4.3 g/dL Normal 3.2-5.2 Globulin 2.5 g/dL Normal 2-4 Albumin/Globulin Ratio 1.7 Normal 1-3 Total Bilirubin 1.30 mg/dL High 0.2-1.0 Alkaline Phosphatase 90 U/L Normal 34-104 Alt 16 U/L Normal 7-52 Ast 16 U/L Normal 13-39 Egfr Non- 71.9 >60 Egfr 87.1 >60 2 1 Because ethnic data is not always [...] 5 Kidney failure <15 (or dialysis) 2 Because ethnic data is not always readily [...] Kidney failure <15 (or dialysis) Procedures Date Code Description Status 07/27/2019 91097 EKG Tracing & Interpretation Completed 03/24/2019 [id number] Diabetic Retinal Eye Exam Completed 01/25/2019 [id number] Diabetic Retinal Eye Exam Completed 01/04/2019 [id number] Diabetic Retinal Eye Exam Completed 12/23/2018 [id number] Diabetic Retinal Eye Exam Completed 12/09/2018 [id number] Diabetic Retinal Eye Exam Completed 2018 [id number] Diabetic Retinal Eye Exam Completed 11/18/2018 [id number] Diabetic Retinal Eye Exam Completed 10/21/2018 [id number] Diabetic Retinal Eye Exam Completed 10/13/2018 [id number] Diabetic Retinal Eye Exam Completed 12/08/2017 [id number] Bone Mineral Density Test Completed Medical Devices Description No Information Available Encounters Type Date Location Provider Dx Diagnosis Office Visit 05/02/2019 Rheumatology Booker Salvador, M35.3 Polymyalgia 8:40a [facility] M.D. rheumatica M85.9 Disorder of bone density and structure, unspecified M54.5 Low back pain M60.89 Other myositis, multiple sites Assessments Date Code Description Provider 07/27/2019 I10 Essential (primary) hypertension Nestor Rogers M.D. 07/27/2019 R06.02 Dyspnea on exertion Nestor Rogers M.D. 07/27/2019 M60.89 Other myositis, multiple sites Nestor Rogers M.D. 05/02/2019 M35.3 Polymyalgia rheumatica Booker Salvador M.D. 05/02/2019 M85.9 Disorder of bone density and structure, Booker Salvador M.D. unspecified 05/02/2019 M54.5 Low back pain Booker Salvador M.D. 05/02/2019 M60.89 Other myositis, multiple sites Booker Salvador M.D. Plan of Treatment Future Appointment(s):08/15/2019 11:00 am - [place] [facility] Schedule at [facility]08/22/2019 8:45 am - Nestor Rogers M.D. at [facility]08/02/2019 9:20 am - Booker Salvador M.D. at [facility]07/27/2019 - Nestor Rogers M.D.I10 Essential (primary) [id number] Dyspnea on exertionNew Orders:Stress Test, Exercise Nuclear, Scheduled: 08/22/19Echocardiogram, Scheduled: 08/15/19Recommendations:try to resume regular moderate exercise. check bp's at home and call with results next week ov Vashti 1 m ov JFM 6 mM60.89 Other myositis, multiple sites Functional Status Description No Information Available Mental Status Description No Information Available Referrals Description No Information Available
--- OUTSIDE RECORDS SUMMARY | 2019-08-03 18:00 | XMS REPORT | Continuity of Care Document ---
:1950 External Reference #:[id number] Author Name Booker Salvador M.D. 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 Active Problems Provider Date Mitral valve disorder [facility] Schedule Onset: 05/20/2013 Palpitations [place] [facility] Schedule Onset: 05/20/2013 Multiple joint pain [...] Patient has never smoked Smoking Status Reviewed: 08/02/19 Patient has never smoked Exercise Type/Frequency Does not exercise but plans to sign up today at [facility] Allergies, Adverse Reactions, Alerts Active Allergies Reaction Severity Comments Date Ceftin 10/02/2008 Cipro 10/02/2008 Keflex 10/02/2008 Celebrex 10/02/2008 Penicillin 03/23/2017 Amoxicillin 10/14/2017 Hydrocodone 10/14/2017 Clarithromycin 10/14/2017 Clavulanic Acid 10/14/2017 Medications Active Medications SIG Qnty Indications Ordering Date Provider Saline Nasal [place] prn Unknown 09/14/2018 Folic Acid take 1 tablet by 90tabs Z79.899 Booker Salvador, 07/02/2018 1mg mouth once daily M.D. Tablets Caltrate 600+D Plus take one 180units Booker Salvador, 12/03/2017 Minerals capsule/tablet by M.D. mouth twice daily, [id number] avoid yellow dye Chewtabs Ranitidine HCL 1 [...] mg and 3mg Nory Stephen, 05/17/2012 Injection Rasheeda Immunizations Description No Information Available Vital Signs Date Vital Result Comment 08/02/2019 9:33am Height 63 inches 5'3" Weight 155.50 lb Heart Rate 96 /min BP Systolic Sitting 122 mmHg BP Diastolic Sitting 78 mmHg Body Temperature 98.6 F Pain Level 1 O2 % BldC Oximetry 99 % BMI (Body Mass Index) 27.5 kg/m2 07/27/2019 4:07pm Height 63 inches 5'3" Weight 157.25 lb with shoes Heart Rate 62 /min BP Systolic Sitting 152 mmHg BP Diastolic Sitting 90 mmHg BP Systolic Standing 148 mmHg BP Diastolic Standing 90 mmHg BMI (Body Mass Index) 27.9 kg/m2 Ejection Fraction 55-60% echo 04/05/18 Results Test Acquired Date Facility Test Result H/L Range Note Laboratory test 08/01/2019 [facility] Erythrocyte Sed 15 mm/Hr Normal 0-29 [address] [place] [address] [phone] C Reactive Protein 5.80 mg/L Normal <8.01 2 CBC Auto 08/01/2019 [facility] White Blood 6.4 10^3/uL Normal 3.5-10.[address] [place] [address] [phone] Red Blood Count 4.42 10^6/uL Normal 3.70-4.87 Hemoglobin 12.6 g/dL Normal 12.0-16.0 Hematocrit 38 % Normal 35-47 Mean Corpuscular Volume 87 fL Normal 80-97 Mean Corpuscular Hemoglobin 29 pg Normal 27-31 Mean Corpuscular HGB Conc 33 g/dL Normal 31-36 Red Cell Distribution Width 13 % Normal 10-15 Platelet Count 225 10^3/uL Normal 150-450 Mean Platelet Volume 8.9 fL Normal 7.4-10.4 Abs Neutrophils 3.8 10^3/uL Normal 1.5-7.7 Abs Lymphocytes 2.0 10^3/uL Normal 1.0-4.8 Abs Monocytes 0.4 10^3/uL Normal 0-0.8 Abs Eosinophils 0.2 10^3/uL Normal 0-0.6 Abs Basophils 0.0 10^3/uL Normal 0-0.2 Abs Nucleated RBC 0.0 10^3/uL Granulocyte % 58.9 % Lymphocyte % 31.7 % Monocyte % 5.7 % Eosinophil % 3.0 % Basophil % 0.7 % Nucleated Red Blood Cells % 0.1 Comp Metabolic 08/01/2019 [facility] Sodium 140 mmol/L Normal 135-145 Panel [address] [place] [address] [phone] Potassium 4.0 mmol/L Normal 3.5-5.0 Chloride 107 mmol/L Normal 101-111 Co2 Carbon Dioxide 28 mmol/L Normal 22-32 Anion Gap 5 mmol/L Normal 2-11 Glucose 133 mg/dL High 70-100 Blood Urea Nitrogen 18 mg/dL Normal 6-24 Creatinine 0.76 mg/dL Normal 0.51-0.95 BUN/Creatinine Ratio 23.7 High 8-20 Calcium 9.8 mg/dL Normal 8.6-10.3 Total Protein 6.6 g/dL Normal 6.4-8.9 Albumin 4.3 g/dL Normal 3.2-5.2 Globulin 2.3 g/dL Normal 2-4 Albumin/Globulin Ratio 1.9 Normal 1-3 Total Bilirubin 0.80 mg/dL Normal 0.2-1.0 Alkaline Phosphatase 104 U/L Normal 34-104 Alt 15 U/L Normal 7-52 Ast 16 U/L Normal 13-39 Egfr Non- 75.2 >60 Egfr 91.0 >60 3 Laboratory test 08/01/2019 [facility] Creatine 621 U/L High 10 -223 4 finding Kinase([place]) [place] [address] [phone] Laboratory test 04/29/2019 [facility] Erythrocyte Sed 11 mm/Hr Normal 0-29 finding [address] [place] [address] [phone] C Reactive Protein 5.48 mg/L Normal <8.01 Comp Metabolic 04/29/2019 [facility] Sodium 141 mmol/L Normal 135-[address] [place] [address] [phone] Potassium 4.0 mmol/L Normal 3.5-5.0 Chloride 108 [...] Egfr Non- 70.9 >60 Egfr 85.8 >60 5 Laboratory test 04/29/2019 [facility] Creatine 558 U/L High 10 -[address] Kinase([place]) [place] [address] [phone] CBC Auto Diff 04/29/2019 [facility] White Blood 6.5 Normal 3.5 -10.[address] Count 10^3/[place] [address] [phone] Red Blood Count 4.18 10^6/uL Normal 3.70-4.87 [...] Blood Cells % 0.0 Laboratory test 03/10/2019 [facility] Creatine 548 U/L High 10 -[address] Kinase([place]) [place] [address] [phone] Erythrocyte Sed Rate 24 mm/Hr Normal 0-29 C Reactive Protein 18.65 mg/L High <8.01 CBC Auto 03/10/2019 [facility] White Blood 6.3 10^3/uL Normal 3.5-10.[address] [place] [address] [phone] Red Blood Count 4.43 10^6/uL Normal 3.70-4.87 [...] Blood Cells % 0.1 Comp Metabolic 03/10/2019 [facility] Sodium 142 mmol/L Normal 135-[address] [place] [address] [phone] Potassium 3.9 mmol/L Normal 3.5-5.0 Chloride 109 [...] Egfr Non- 71.9 >60 Egfr 87.1 >60 6 1 ORDERED: 02/25/19 EXPIRES: 2 ORDERED: 02/25/19 EXPIRES: 3 Because ethnic data is not always [...] 5 Kidney failure <15 (or dialysis) 4 ORDERED: 02/25/19 EXPIRES: 5 Because ethnic data is not always readily [...] 15-29 5 Kidney failure <15 (or dialysis) 6 Because ethnic data is not always [...] dialysis) Procedures Date Code Description Status 07/27/2019 35004 EKG Tracing & Interpretation Completed 03/24/2019 [id number] Diabetic Retinal Eye Exam Completed 01/25/2019 [id number] Diabetic Retinal Eye Exam Completed 01/04/2019 [id number] Diabetic Retinal Eye Exam Completed 12/23/2018 [id number] Diabetic Retinal Eye Exam Completed 12/09/2018 [id number] Diabetic Retinal Eye Exam Completed 2018 [id number] Diabetic Retinal Eye Exam Completed 11/18/2018 [id number] Diabetic Retinal Eye Exam Completed 10/21/2018 [id number] Diabetic Retinal Eye Exam Completed 10/13/2018 [id number] Diabetic Retinal Eye Exam Completed 12/08/2017 290399798 Bone Mineral Density Test Completed Medical Devices Description No Information Available Encounters Type Date Location Provider Dx Diagnosis Office Visit 07/27/2019 [facility] Nestor Andrew I10 Essential ( primary) 3:40p Rasheeda Rogers hypertension R06.02 Shortness of breath M60.89 Other myositis, multiple sites Office Visit 05/02/2019 8:40a Rheumatology Booker M35.3 Polymyalgia [facility] M.D. rheumatica M85.9 Disorder of bone density and structure, unspecified M54.5 Low back pain M60.89 Other myositis, multiple sites Assessments Date Code Description Provider 08/02/2019 M35.3 Polymyalgia rheumatica Booker Salvador M.D. 08/02/2019 M60.89 Other myositis, multiple sites Booker Salvador M.D. 07/27/2019 I10 Essential (primary) hypertension Nestor Rogers [...] Booker Salvador M.D. Plan of Treatment Future Appointment(s):12/01/2019 8:40 am - Booker Salvador M.D. at [facility]08/15/2019 11:00 am - [place] [facility] Schedule at [facility] 8:45 am - Nestor Rogers M.D. at [facility]2018 - Booker Salvador M.D.M35.3 Polymyalgia rheumaticaComments:Please follow up with your primary care doctor for elevated blood cbtqiN97.89 Other myositis, multiple sitesFollow up:No evidence of autoimmune myositis; we will follow Follow up in 4 to 5 months or sooner if needed Functional Status Description No Information Available Mental Status Description No Information Available Referrals Description No Information Available
--- OUTSIDE RECORDS SUMMARY | 2019-08-03 18:00 | XMS REPORT | Continuity of Care Document ---
:1950 External Reference #:[id number] Author Name Gracie Platt CNM Address [address] [place] [address] Care Team Providers Name Role Phone Sheng Bush M.D. 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 - Urology Care Team Information [place] Fisherman [phone] Problems Description No Active Problems Social History Type Date Description Comments Sex Unknown Tobacco Use Start: Unknown End: Unknown Patient is a former smoker Smoking Status Reviewed: 06/20/19 Patient is a former smoker Allergies, Adverse Reactions, Alerts Active Allergies Reaction Severity Comments Date Ceftin 12/15/2005 Keflex 12/15/2005 Sulfa 12/15/2005 Cipro 12/15/2005 Celebrex 12/15/2005 Penicillin 01/08/2016 Medications Active Medications SIG Qnty Indications Ordering Provider Date Vitamin B-12 CR Unknown Ranitidine Unknown 150mg Tablets Losartan Potassium Unknown 25mg Potassimin Unknown Magnesium Unknown Medications Administered in Office Medication SIG Qnty Indications Ordering Provider Date PT SCRN Tbco Id as Non User Gracie Platt CNM 06/20/2019 Injection Immunizations Description No Information Available Vital Signs Date Vital Result Comment 06/20/2019 9:24am BP Systolic 136 mmHg BP Diastolic 74 mmHg Height 62 inches 5'2" Weight 157.00 lb BMI (Body Mass Index) 28.7 kg/m2 Last Menstrual Period 9945901 2 Parity 2 01/28/2017 10:39am BP Systolic 136 mmHg BP Diastolic 82 mmHg Height 62 inches 5'2" Weight 167.00 lb BMI (Body Mass Index) 30.5 kg/m2 Last Menstrual Period 6410221 2 Parity 2 Results Description No Information Available Procedures Date Code Description Status 11/12/2016 31666406 Mammogram Completed 09/28/2012 [id number] Colonoscopy Completed Medical Devices Description No Information Available Encounters Type Date Location Provider Dx Diagnosis Office Visit 06/20/2019 9:30a [facility] Gracie Platt CNM N76.0 Acute vaginitis Assessments Date Code Description Provider 06/20/2019 N76.0 Acute vaginitis Gracie Platt CNM Plan of Treatment 01/28/2017 - [place] Reyes-CR30.0 DysuriaNew Medication:Macrobid 100 mg - 1 by mouth twice a dayFollow up:r/v 3 weeks SOLO, recheck for RBC's Functional Status Description No Information Available Mental Status Description No Information Available Referrals Description No Information Available
[2019-08-03 18:04] VITALS: BP 175/90
== END 2019-08-03 18:05 | disposition home or self-care (01) ==
LOC: ED 16:51
DX: S09.90XA Unspecified injury of head, initial encounter (principal); W19.XXXA Unspecified fall, initial encounter; Y92.9 Unspecified place or not applicable; I10 Essential (primary) hypertension; K21.9 Gastro-esophageal reflux disease without esophagitis; F41.9 Anxiety disorder, unspecified; F32.9 Major depressive disorder, single episode, unspecified; Z90.49 Acquired absence of other specified parts of digestive tract; Z87.891 Personal history of nicotine dependence; Z79.899 Other long term (current) drug therapy; Z88.5 Allergy status to narcotic agent; Z88.0 Allergy status to penicillin; Z88.8 Allergy status to other drugs, medicaments and biological substances; Z88.1 Allergy status to other antibiotic agents; Z91.040 Latex allergy status
CPT/HCPCS: 70450; 99282; A9270-GY

== ENCOUNTER 2019-08-16 08:22 | Emergency (ER) | payer MEDICARE ==
--- NOTE | 2019-08-16 09:13 | ED ---
Headache - HPI Summary HPI Summary: Patient is a 68-year-old female who presents emergency department for ongoing headache after head injury about a week and half ago. Patient seen in the area about a week and a half ago after mechanical fall and head injury. She had a brain CT at that time which showed posterior hematoma without intracranial findings. Patient states she has had ongoing headache that seemed to increase last night. Patient notes pain around her left eye as well. She denies vision changes, numbness, tingling, weakness, speech change. Patient does note sinus congestion and postnasal drip. Family denies change in mental status. Symptoms are moderate in severity. No current modifying factors. History of hypertension and polymyalgia rheumatica. Is not anticoagulated. - History Of Current Complaint Chief Complaint: EDHeadInjury Stated Complaint: HEAD INJURY PER PT Time Seen by Provider: 08/16/19 08:36 Hx Obtained From: Patient - Allergies/Home Medications Allergies/Adverse Reactions: Allergies Allergy/AdvReac Type Severity Reaction Status Date / Time celecoxib [From Celebrex] Allergy Intermediate Fatigue Verified 08/16/19 08:30 amoxicillin Allergy GI Upset Verified 08/16/19 08:30 cefuroxime Allergy Nausea And Verified 08/16/19 08:30 Vomiting cephalexin Allergy Dizziness Verified 08/16/19 08:30 ciprofloxacin Allergy Dizziness Verified 08/16/19 08:30 clarithromycin Allergy Nausea Verified 08/16/19 08:30 clavulanic acid Allergy GI Upset Verified 08/16/19 08:30 [From Augmentin] hydrocodone Allergy Nausea Verified 08/16/19 08:30 latex Allergy itchy Verified 08/16/19 08:30 Penicillins Allergy Itching Verified 08/16/19 08:30 bandaid Allergy Itching Uncoded 08/16/19 08:30 Home Medications: Home Medications Cyanocobalamin INJ * [Vitamin B12 INJ *] 1,000 mcg IM MONTHLY 08/16/19 [History Confirmed 08/16/19] PMH/Surg Hx/FS Hx/Imm Hx Previously Healthy: Yes Endocrine/Hematology History: Denies: Hx Diabetes Cardiovascular History: Reports: Hx Hypertension - ON MEDS, Other Cardiovascular Problems/Disorders - CLEAN CARDIAC CATHETERIZATION, HX OF GERD ALSO Denies: Hx Pacemaker/ICD GI History: Reports: Hx Gastroesophageal Reflux Disease, Hx Hiatal Hernia - ? 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 Sensory History: Reports: Hx Cataracts - BILATERAL, Hx Contacts or Glasses - Reading only Denies: Hx Deafness, Hx Hearing Aid Opthamlomology History: Reports: Hx Cataracts - BILATERAL, Hx Contacts or Glasses - Reading only Neurological History: Reports: Other Neuro Impairments/Disorders - vertigo Psychiatric History: Reports: Hx Anxiety, Hx Depression - XANAX PRN , RARELY USES Denies: Hx Panic Disorder - Cancer History Hx Chemotherapy: No Hx Radiation Therapy: No - Surgical History Surgery Procedure, Year, and Place: cath 2008,cholecystectomy 1969, vein stripped 2011, 2 c-sections, Bilateral knee arthroscopic, Hx Anesthesia Reactions: No - Immunization History Date of Tetanus Vaccine: utd Date of Influenza Vaccine: 06/2018 Infectious Disease History: No Infectious Disease History: Denies: Traveled Outside the [place] in Last 30 Days - Family History Known Family History: Positive: Cardiac Disease, Diabetes, Other - kidney stone (sister) Negative: Hypertension - Social History Occupation: Retired Lives: With Family Alcohol Use: None Hx Substance Use: No Substance Use Type: Reports: None Hx Tobacco Use: Yes Smoking Status (MU): Former Smoker Amount Used/How Often: SOCIALLY X 15 YEARS Have You Smoked in the Last Year: No Review of Systems Constitutional: Negative Negative: Fever Eyes: Negative Negative: Photophobia, Blurred Vision, Diplopia Positive: Nasal Discharge Cardiovascular: Negative Respiratory: Negative Gastrointestinal: Negative Genitourinary: Negative Musculoskeletal: Negative Skin: Negative Positive: Headache. Negative: Weakness, Paresthesia, Numbness, Syncope, Slurred Speech All Other Systems Reviewed And Are Negative: Yes Physical Exam Triage Information Reviewed: Yes Vital Signs On Initial Exam: Initial Vitals Temp Pulse Resp BP Pulse Ox 97.9 F 81 18 171/107 98 08/16/19 08:24 08/16/19 08:24 08/16/19 08:24 08/16/19 08:24 08/16/19 08:24 Vital Signs Reviewed: Yes Appearance: Positive: Well-Appearing - Patient sitting up in bed in no acute distress. Answers questions appropriately. Family present. Skin: Positive: Warm, Dry Head/Face: Positive: Normal Head/Face Inspection Eyes: Positive: Normal, EOMI, RICHARD, Conjunctiva Clear ENT: Positive: Pharyngeal erythema, TMs normal, Other - Mild tenderness over left frontal sinus.. Negative: Tonsillar swelling, Tonsillar exudate Neck: Positive: Supple, Nontender. Negative: Nuchal Rigidity Respiratory/Lung Sounds: Positive: Clear to Auscultation, Breath Sounds Present Cardiovascular: Positive: Normal, RRR Musculoskeletal: Positive: Normal, Strength/ROM Intact Neurological: Positive: Normal, Sensory/Motor Intact, Alert, Oriented to Person Place, Time, CN Intact II-III, Normal Gait, Heel to Toe - Normal, Finger to Nose - No dysmetria, Facial Symmetry, Speech Normal. Negative: Pronator Drift Present Psychiatric: Positive: Affect/Mood Appropriate Procedures - Sedation Patient Received Moderate/Deep Sedation with Procedure: No Diagnostics - Vital Signs Vital Signs Temp Pulse Resp BP Pulse Ox 08/16/19 08:24 97.9 F 81 18 171/107 98 - Laboratory Result Diagrams: 08/16/19 09:20 08/16/19 09:20 Lab Statement: Any lab studies that have been ordered have been reviewed, and results considered in the medical decision making process. Headache Course/Dx - Course Course Of Treatment: Patient presenting with worsening headache after head injury a week and a half ago. Patient has no neurological deficits on exam and is well-appearing. Basic labs ordered including sedimentation rate and CRP. Patient and family concerned for worsening headache concerned for repeat imaging. Case discussed with Dr. Correia. We'll obtain CT to rule out delayed bleed or new findings. CT scan was negative for acute findings per radiology. Labs unremarkable including normal CRP and sedimentation rate. Patient examined by Dr. Correia as well who feels symptoms are consistent with postconcussive headache. We'll keep patient neurology follow-up. Tylenol for pain as directed. To return to the ER symptoms change or worsen. - Diagnoses Differential Diagnosis/HQI/PQRI: Migraine, Tension Headache, Viral Syndrome Provider Diagnoses: Concussion, Cephalgia Discharge ED - Sign-Out/Discharge Documenting (check all that apply): Patient Departure - Discharge Plan Condition: Good Disposition: HOME Patient Education Materials: Concussion (ED) Referrals: Marlo Ribera MD [Medical Doctor] - 3 Days Sheng Bush MD [Primary Care Provider] - 3 Days Additional Instructions: Follow up with Dr. Ribera, neurologist, within 1-3 days. Return to the ER if you begin to have one-sided numbness/tingling/weakness, worsening headache, or any other concerning symptoms. - Billing Disposition and Condition Condition: GOOD Disposition: Home - Attestation Statements Provider Attestation: See separate progress note
[2019-08-16 09:27] LABS: ABS Eosinophils 0.2 10^3/ul (0-0.6); ABS Lymphocytes 1.6 10^3/ul (1.0-4.8); ABS Monocytes 0.4 10^3/ul (0-0.8); ABS Neutrophils 3.3 10^3/ul (1.5-7.7); Eosinophil % 3.3 %; Hematocrit 37 % (35-47); Hemoglobin 12.4 g/dL (12.0-16.0); Lymphocyte % 29.5 %; Mean Corpuscular HGB Conc 34 g/dL (31-36); Mean Corpuscular Hemoglobin 29 pg (27-31); Mean Corpuscular Volume 86 fL (80-97); Mean Platelet Volume 8.2 fL (7.4-10.4); Platelet Count 194 10^3/uL (150-450); Red Cell Distribution Width 13 % (10-15); White Blood Count 5.6 10^3/uL (3.5-10.8)
[2019-08-16 09:45] LABS: Albumin 4.2 g/dL (3.2-5.2); Albumin/Globulin Ratio 1.6 (1-3); BUN/Creatinine Ratio 19.7 (8-20); C Reactive Protein 3.88 mg/L (<8.01); Calcium 9.5 mg/dL (8.6-10.3); EGFR Non-African American 75.2 (>60); Globulin 2.6 g/dL (2-4); Total Protein 6.8 g/dL (6.4-8.9)
[2019-08-16] MEDS ORDERED: Acetaminophen TAB* 325 MG PO ONE (10:56)
[2019-08-16 11:33] LABS: Erythrocyte Sed Rate 14 mm/Hr (0-29)
--- NOTE | 2019-08-16 12:56 | ED ---
Progress - Progress Note Progress Note: This patient is a 68 year old M presenting to ED with a chief complaint of generalized head/face pain since 08/03/19. Patient was seen by NAE Hopkins, who asked me to also evaluate the patient. Patient had a fall on 08/03/19 and had a negative CT brain. However, she has had continued headache since then. She reports all she could feel last night was pain in her left eye. She states her back, arms, and legs are starting to hurt more as well. She reports feeling more tired and slow recently. She is taking Tylenol and Ibuprofen, but they have not helped. The patient rates the pain 4/10 in severity. Symptoms aggravated by nothing. Symptoms alleviated by nothing. Patient denies numbness, tingling, vomiting. Medications reviewed. Allergies noted. Physical Exam on Evaluation: Constitutional: Well-developed, Well-nourished, Alert. (-) Distressed Skin: Warm, Dry HENT: Normocephalic; Atraumatic Eyes: Conjunctiva normal Neck: Musculoskeletal ROM normal neck. (-) JVD, (-) Stridor, (-) Tracheal deviation Cardio: Rhythm regular, rate normal, Heart sounds normal; Intact distal pulses; Radial pulses are 2+ and symmetric. (-) Murmur Pulmonary/Chest wall: Effort normal. (-) Respiratory distress, (-) Wheezes, (-) Rales Abd: Soft, (-) tenderness, (-) Distension, (-) Guarding, (-) Rebound Musculoskeletal: (-) Edema Lymph: (-) Cervical adenopathy Neuro: Alert, Oriented x3 Psych: Mood and affect Normal Discussed return precautions with patient and recommended neurology follow-up. Course/Dx - Course Course Of Treatment: Patient is here with headache, left eye pain, feeling slow in her actions ever since falling and hitting her head a couple of days ago. Patient had an initial CT head which is negative here. Patient had a repeat CT head today which showed no evidence of delayed intracranial hemorrhage. Patient had blood performed which was grossly unremarkable including a negative ESR. Patient is likely suffering from a concussion and was given concussion management treatment by myself including neurology follow-up. - Diagnoses Provider Diagnoses: Concussion Discharge ED - Sign-Out/Discharge Documenting (check all that apply): Patient Departure - Discharge - Discharge Plan Condition: Good Disposition: HOME Patient Education Materials: Concussion (ED) Referrals: Sheng Bush MD [Primary Care Provider] - 3 Days Marlo Ribera MD [Medical Doctor] - 3 Days Additional Instructions: Follow up with Dr. Ribera, neurologist, within 1-3 days. Return to the ER if you begin to have one-sided numbness/tingling/weakness, worsening headache, or any other concerning symptoms. - Billing Disposition and Condition Condition: GOOD Disposition: Home - Attestation Statements Document Initiated by Nomie: Yes Documenting Scribe: Nehemias Hook Provider For Whom Diana is Documenting (Include Credential): Rogelio Correia MD Scribe Attestation: I, Nehemias Hook, scribed for Rogelio Correia MD on 08/16/19 at 1520. Scribe Documentation Reviewed: Yes Provider Attestation: The documentation as recorded by the Nehemias gorman accurately reflects the service I personally performed and the decisions made by me, Rogelio Correia MD Status of Scribe Document: Viewed
[2019-08-16 13:47] VITALS: BP 170/86
== END 2019-08-16 13:47 | disposition home or self-care (01) ==
LOC: ED 08:22
DX: S06.0X9A Concussion with loss of consciousness of unspecified duration, initial encounter (principal); W19.XXXA Unspecified fall, initial encounter; Y92.9 Unspecified place or not applicable; I10 Essential (primary) hypertension; K21.9 Gastro-esophageal reflux disease without esophagitis; F41.9 Anxiety disorder, unspecified; F32.9 Major depressive disorder, single episode, unspecified; Z87.891 Personal history of nicotine dependence; Z90.49 Acquired absence of other specified parts of digestive tract; Z79.899 Other long term (current) drug therapy; Z88.5 Allergy status to narcotic agent; Z88.0 Allergy status to penicillin; Z88.8 Allergy status to other drugs, medicaments and biological substances; Z88.1 Allergy status to other antibiotic agents; Z91.040 Latex allergy status
CPT/HCPCS: 36415; 70450; 80053; 85025; 85652; 86140; 99283; A9270-GY

== ENCOUNTER 2019-08-29 16:59 | Emergency (ER) | payer MEDICARE ==
[2019-08-29 18:48] LABS: Urine Appearance Cloudy; Urine Bilirubin Negative (Negative); Urine Blood 2+ (Negative); Urine Color Straw; Urine Glucose Negative (Negative); Urine Ketones Negative (Negative); Urine Nitrite Negative (Negative); Urine Protein Negative (Negative); Urine Urobilinogen Negative (Negative)
[2019-08-29 18:50] LABS: Urine Bacteria Absent (Absent); Urine Red Blood Cell 3+(>10/hpf) (Absent); Urine White Blood Cell Trace(0-5/hpf) (Absent)
[2019-08-29 19:14] LABS: ABS Basophils 0.1 10^3/ul (0-0.2); ABS Eosinophils 0.2 10^3/ul (0-0.6); ABS Lymphocytes 2.2 10^3/ul (1.0-4.8); ABS Monocytes 0.5 10^3/ul (0-0.8); ABS Neutrophils 4.4 10^3/ul (1.5-7.7); Eosinophil % 2.6 %; Hematocrit 37 % (35-47); Hemoglobin 12.8 g/dL (12.0-16.0); Lymphocyte % 29.5 %; Mean Corpuscular HGB Conc 35 g/dL (31-36); Mean Corpuscular Hemoglobin 30 pg (27-31); Mean Corpuscular Volume 86 fL (80-97); Mean Platelet Volume 8.3 fL (7.4-10.4); Platelet Count 212 10^3/uL (150-450); Red Blood Count 4.32 10^6 /uL (3.70-4.87); Red Cell Distribution Width 13 % (10-15); White Blood Count 7.3 10^3/uL (3.5-10.8)
[2019-08-29 19:33] LABS: Albumin 4.2 g/dL (3.2-5.2); Albumin/Globulin Ratio 1.5 (1-3); BUN/Creatinine Ratio 24.1 (8-20); C Reactive Protein 5.46 mg/L (<8.01); Calcium 9.9 mg/dL (8.6-10.3); EGFR African American 77.9 (>60); EGFR Non-African American 64.4 (>60); Globulin 2.8 g/dL (2-4); Potassium 4.1 mmol/L (3.5-5.0); Total Bilirubin 0.7 mg/dL (0.2-1.0)
--- NOTE | 2019-08-29 20:32 | ED ---
Dizziness - HPI Summary HPI Summary: Patient is a 68 y/o F presenting to the ED for a chief complaint of dizziness that began on 08/29/19 after eating lunch. Patient is present with her . She states she had to sit down after standing up due to having a room spinning sensation. She sat down again after the dizziness began without relief. Patient notes the dizziness worsens with movement. On triage, patient reported urinary frequency and nausea. Patient denies any fever, chills, erythema of eyes, blurred vision, sore throat, CP, SOB, cough, abdominal pain, vomiting, dysuria, hematuria, myalgia, edema, rash, or headache. She denies any recent sinus infection, ear infection, or other illness. She does admit having a fall 3 weeks ago, hitting the back of her head on concrete. PMHx is significant for HTN , polymyalgia rheumatica, and GERD for which she takes medication. She recently saw Dr. Rogers for a cardiac stress test with unremarkable findings. Dr. Bush is her PCP. - History Of Current Complaint Chief Complaint: EDDizziness Stated Complaint: DIZZINESS/NAUSEA PER PT Time Seen by Provider: 08/29/19 19:27 Hx Obtained From: Patient Onset/Duration: Suddenly Severity Initially: Moderate Severity Currently: Moderate Character: Room Spinning Aggravating Factor(s): Other - Movement Alleviating Factor(s): Nothing Associated Signs And Symptoms: Positive: Nausea. Negative: Vomiting, Chest Pain , SOB, Visual Changes - Negative blurred vision, Fever, Chills - Allergies/Home Medications Allergies/Adverse Reactions: Allergies Allergy/AdvReac Type Severity Reaction Status Date / Time celecoxib [From Celebrex] Allergy Intermediate Fatigue Verified 08/29/19 17:04 amoxicillin Allergy GI Upset Verified 08/29/19 17:04 cefuroxime Allergy Nausea And Verified 08/29/19 17:04 Vomiting cephalexin Allergy Dizziness Verified 08/29/19 17:04 ciprofloxacin Allergy Dizziness Verified 08/29/19 17:04 clarithromycin Allergy Nausea Verified 08/29/19 17:04 clavulanic acid Allergy GI Upset Verified 08/29/19 17:04 [From Augmentin] hydrocodone Allergy Nausea Verified 08/29/19 17:04 latex Allergy itchy Verified 08/29/19 17:04 Penicillins Allergy Itching Verified 08/29/19 17:04 bandaid Allergy Itching Uncoded 08/29/19 17:04 PMH/Surg Hx/FS Hx/Imm Hx Previously Healthy: Yes Endocrine/Hematology History: Denies: Hx Diabetes Cardiovascular History: Reports: Hx Hypertension - ON MEDS, Other Cardiovascular Problems/Disorders - CLEAN CARDIAC CATHETERIZATION, HX OF GERD ALSO Denies: Hx Hypercholesterolemia, Hx Pacemaker/ICD GI History: Reports: Hx Gastroesophageal Reflux Disease, Hx Hiatal Hernia - ? 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, Other Musculoskeletal History - Polymyalgia rheumatica Sensory History: Reports: Hx Cataracts - BILATERAL, Hx Contacts or Glasses - Reading only Denies: Hx Deafness, Hx Hearing Aid Opthamlomology History: Reports: Hx Cataracts - BILATERAL, Hx Contacts or Glasses - Reading only Neurological History: Reports: Other Neuro Impairments/Disorders - vertigo Psychiatric History: Reports: Hx Anxiety, Hx Depression - XANAX PRN , RARELY USES Denies: Hx Panic Disorder - Cancer History Hx Chemotherapy: No Hx Radiation Therapy: No - Surgical History Surgical History: Yes Surgery Procedure, Year, and Place: cath 2008,cholecystectomy 1969, vein stripped 2011, 2 c-sections, Bilateral knee arthroscopic, Hx Anesthesia Reactions: No - Immunization History Date of Tetanus Vaccine: utd Date of Influenza Vaccine: 06/2018 Infectious Disease History: No Infectious Disease History: Denies: Traveled Outside the [place] in Last 30 Days - Family History Known Family History: Positive: Cardiac Disease, Diabetes, Other - kidney stone (sister) Negative: Hypertension - Social History Occupation: Retired Lives: With Family Alcohol Use: None Hx Substance Use: No Substance Use Type: Reports: None Hx Tobacco Use: Yes Smoking Status (MU): Former Smoker Amount Used/How Often: SOCIALLY X 15 YEARS Have You Smoked in the Last Year: No Review of Systems Negative: Fever, Chills Negative: Erythema Negative: Sore Throat Negative: Chest Pain Negative: Shortness Of Breath, Cough Positive: Nausea. Negative: Abdominal Pain, Vomiting Positive: frequency - Urinary. Negative: dysuria, hematuria Negative: Myalgia, Edema Negative: Rash Neurological: Other - Positive dizziness Negative: Headache All Other Systems Reviewed And Are Negative: Yes Physical Exam - Summary Physical Exam Summary: Constitutional: Well-developed, Well-nourished, Alert. (-) Distressed Skin: Warm, Dry HENT: Normocephalic; Atraumatic Eyes: Conjunctiva normal Neck: Musculoskeletal ROM normal neck. (-) JVD, (-) Stridor, (-) Tracheal deviation Cardio: Rhythm regular, rate normal, Heart sounds normal; Intact distal pulses; The pedal pulses are 2+ and symmetric. Radial pulses are 2+ and symmetric. (-) Murmur Pulmonary/Chest wall: Effort normal. (-) Respiratory distress, (-) Wheezes, (-) Rales Abd: Soft, (-) tenderness, (-) Distension, (-) Guarding, (-) Rebound Musculoskeletal: (-) Edema Lymph: (-) Cervical adenopathy Neuro: Alert, Oriented x3. [place]-Hallpike test negative, Rombergs sign negative, steady gait although she state she feels wobbly. Psych: Mood and affect Normal Triage Information Reviewed: Yes Vital Signs On Initial Exam: Initial Vitals Temp Pulse Resp BP Pulse Ox 96.5 F 80 19 146/84 99 08/29/19 17:01 08/29/19 17:01 08/29/19 17:01 08/29/19 17:01 08/29/19 17:01 Vital Signs Reviewed: Yes - Esdras Coma Scale Best Eye Response: 4 - Spontaneous Best Motor Response: 6 - Obeys Commands Best Verbal Response: 5 - Oriented Coma Scale Total: 15 Procedures - Sedation Patient Received Moderate/Deep Sedation with Procedure: No Diagnostics - Vital Signs Vital Signs Temp Pulse Resp BP Pulse Ox 08/29/19 18:39 70 158/95 97 08/29/19 18:38 63 94 08/29/19 17:01 96.5 F 80 19 146/84 99 - Laboratory Lab Results: Lab Results 08/29/19 08/29/19 08/29/19 Range/Units 18:42 19:07 19:07 WBC 7.3 (3.5-10.8) 10^3/uL RBC 4.32 (3.70-4.87) 10^6 /uL Hgb 12.8 (12.0-16.0) g/dL Hct 37 (35-47) % MCV 86 (80-97) fL MCH 30 (27-31) pg MCHC 35 (31-36) g/dL RDW 13 (10-15) % Plt Count 212 (150-450) 10^3/uL MPV 8.3 (7.4-10.4) fL Neut % (Auto) 60.2 % Lymph % (Auto) 29.5 % Toombs % (Auto) 7.0 % Eos % (Auto) 2.6 % Baso % (Auto) 0.7 % Absolute Neuts (auto) 4.4 (1.5-7.7) 10^3/ul Absolute Lymphs (auto) 2.2 (1.0-4.8) 10^3/ul Absolute Monos (auto) 0.5 (0-0.8) 10^3/ul Absolute Eos (auto) 0.2 (0-0.6) 10^3/ul Absolute Basos (auto) 0.1 (0-0.2) 10^3/ul Absolute Nucleated RBC 0.0 10^3/ul Nucleated RBC % 0.0 Sodium 142 (135-145) mmol/L Potassium 4.1 (3.5-5.0) mmol/L Chloride 109 (101-111) mmol/L Carbon Dioxide 25 (22-32) mmol/L Anion Gap 8 (2-11) mmol/L BUN 21 (6-24) mg/dL Creatinine 0.87 (0.51-0.95) mg/dL Est GFR ( Amer) 77.9 (>60) Est GFR (Non-Af Amer) 64.4 (>60) BUN/Creatinine Ratio 24.1 H (8-20) Glucose 104 H (70-100) mg/dL Calcium 9.9 (8.6-10.3) mg/dL Total Bilirubin 0.70 (0.2-1.0) mg/dL AST 18 (13-39) U/L ALT 14 (7-52) U/L Alkaline Phosphatase 98 (34-104) U/L C-Reactive Protein 5.46 (<8.01) mg/L Total Protein 7.0 (6.4-8.9) g/dL Albumin 4.2 (3.2-5.2) g/dL Globulin 2.8 (2-4) g/dL Albumin/Globulin Ratio 1.5 (1-3) Urine Color Straw Urine Appearance Cloudy Urine pH 5.0 (5-9) Ur Specific [place] 1.010 (1.010-1.030) Urine Protein Negative (Negative) Urine Ketones Negative (Negative) Urine Blood 2+ A (Negative) Urine Nitrate Negative (Negative) Urine Bilirubin Negative (Negative) Urine Urobilinogen Negative (Negative) Ur Leukocyte Esterase 1+ A (Negative) Urine WBC (Auto) Trace(0-5/hpf) (Absent) Urine RBC (Auto) 3+(>10/hpf) A (Absent) Urine Bacteria Absent (Absent) Urine Glucose Negative (Negative) Result Diagrams: 08/29/19 19:07 08/29/19 19:07 Lab Statement: Any lab studies that have been ordered have been reviewed, and results considered in the medical decision making process. - CT Brain CT CT Interpretation Completed By: Radiologist Summary of CT Findings: Brain CT IMPRESSION: 1. No acute intracranial abnormality. 2. Age-related atrophy and mild chronic small vessel ischemic disease. Reviewed by Dr. Sheppard. - EKG 22:12 Cardiac Rate: NL - 62 BPM EKG Rhythm: Sinus Rhythm ST Segment: Normal Ectopy: None Summary of EKG Findings: EKG at 22:12 shows 62 BPM with normal sinus rhythm, no STEMI. Reviewed and interpreted by Dr. Sheppard. Re-Evaluation - Re-Evaluation First Eval Re-Evaluation Time: 22:25 Change: Unchanged Comment: At 22:25, patient had complete resolution of her symptoms are receiving Losartan 25 mg. Dizzy Course/Dx - Course Course Of Treatment: Patient is a 68 y/o F presenting to the ED for a chief complaint of dizziness that began on 08/29/19 after eating lunch. Patient is present with her . She states she had to sit down after standing up due to having a room spinning sensation. She sat down again after the dizziness began without relief. Patient notes the dizziness worsens with movement. On triage, patient reported urinary frequency and nausea. Patient denies any fever , chills, erythema of eyes, blurred vision, sore throat, CP, SOB, cough, abdominal pain, vomiting, dysuria, hematuria, myalgia, edema, rash, or headache. She denies any recent sinus infection, ear infection, or other illness. She does admit having a fall 3 weeks ago, hitting the back of her head on concrete. PMHx is significant for polymyalgia rheumatica and GERD for which she takes medication. She recently saw Dr. Rogers for a cardiac stress test with unremarkable findings. Dr. Bush is her PCP. On exam, [place]-Hallpike test negative, Rombergs sign negative, steady gait although she state she feels wobbly. In the ED course, patient was given losartan 25 mg PO and metoprolol [address] IMPRESSION: 1. No acute intracranial abnormality. 2. Age-related atrophy and mild chronic small vessel ischemic disease. EKG at 22:12 shows 62 BPM with normal sinus rhythm, no STEMI. The patient presently has no vertigo. She is 2-3 readings of significant hypertension in my presence. Her blood pressure responded well to losartan and Lopressor. I consulted the hospitalist to see her for TIA (posterior circulation) versus hypertensive crisis admission. At 22:16, Dr. Vega will evaluate the patient. At 22:25, patient had complete resolution of her symptoms are receiving Losartan 25 mg. I will increase her dosage of Losartan to 25 mg BID. Patient will be discharged with a diagnosis of symptomatic hypertension. Follow up with PCP within 48 hours. - Diagnoses Provider Diagnoses: Hypertension - Provider Notifications Discussed Care Of Patient With: Ervin Vega - At 22:16, Dr. Vega will evaluate the patient. Time Discussed With Above Provider: 22:16 Discharge ED - Sign-Out/Discharge Documenting (check all that apply): Patient Departure - Discharge - Discharge Plan Condition: Stable Disposition: HOME Prescriptions: Losartan TAB* [Cozaar TAB*] 25 mg PO BID #20 tab Patient Education Materials: Hypertension (ED) Referrals: Sheng Bush MD [Primary Care Provider] - Additional Instructions: Take Losartan 25 mg in the morning and 25 mg at night. Follow up with your primary care provider within 48 hours. RETURN TO THE EMERGENCY DEPARTMENT FOR CHANGING OR WORSENING SYMPTOMS. - Attestation Statements Document Initiated by Scribe: Yes Documenting Scribe: Ebony Hull Provider For Whom Scribe is Documenting (Include Credential): Barney Sheppard MD Scribe Attestation: IEbony, scribed for Barney Sheppard MD on 08/29/19 at [id number]. Status of Scribe Document: Ready
[2019-08-29] MEDS ORDERED: Losartan TAB* 25 MG PO ONE ×2 (20:36→22:21)
[2019-08-29] MEDS ORDERED: Metoprolol Tartrate IV* 1 MG/ML 5 ML VIAL IV ONE (20:36)
[2019-08-29 23:10] VITALS: BP 147/91
== END 2019-08-29 23:07 | disposition home or self-care (01) ==
LOC: ED 16:59
DX: I10 Essential (primary) hypertension (principal); R11.0 Nausea; R42 Dizziness and giddiness; R35.0 Frequency of micturition; K21.9 Gastro-esophageal reflux disease without esophagitis; M35.3 Polymyalgia rheumatica; F32.9 Major depressive disorder, single episode, unspecified; Z88.1 Allergy status to other antibiotic agents; Z91.040 Latex allergy status; Z88.5 Allergy status to narcotic agent; Z88.0 Allergy status to penicillin; Z88.8 Allergy status to other drugs, medicaments and biological substances; Z91.048 Other nonmedicinal substance allergy status; Z87.891 Personal history of nicotine dependence
CPT/HCPCS: 36415; 70450; 80053; 81003; 81015; 85025; 86140; 87086; 93005; 96374; 99282; A9270-GY; J3490

== ENCOUNTER 2019-10-24 15:37 | Inpatient (IN) | payer MEDICARE ==
[2019-10-24] MEDS ORDERED: Ondansetron ODT TAB* 4 MG PO ONE (15:53)
--- OUTSIDE RECORDS SUMMARY | 2019-10-24 17:55 | XMS REPORT | Continuity of Care Document ---
:1950 External Reference #:[id number] Author Name Sheng Bush M.D. Address [address] [place] [address] Care Team Providers Name Role Phone Sheng Bush MD - Family Medicine Care Team Information Solar Installer Pv [phone] [facility] Utilization Hand Screen Printer Care Team Information Solar Installer Pv - Health Educator Stew Hsieh MD - Orthopaedic Surgery Care Team Information Solar Installer Pv [phone] Leopoldo Jauregui MD - Rheumatology Care Team Information Solar Installer Pv [phone] Nestor Rogers MD - Cardiovascular Care Team Information Solar Installer Pv Disease [facility] Radiology Department - Diagnostic Care Team Information Solar Installer Pv Radiology Wes Mijares MD - Care Team Information Solar Installer Pv [phone] Otolaryngology Problems Active Problems Provider Date Benign essential hypertension Sheng Bush M.D. Onset: 06/28/2011 Cobalamin deficiency Sheng Bush M.D. Onset: 03/19/2012 Hyperlipidemia Sheng Bush M.D. Onset: 01/27/2013 Gastroesophageal reflux disease Sheng Bush M.D. Onset: 01/27/2013 Palpitations Booker Serrato M.D. Onset: 04/25/2013 Backache Sheng Bush M.D. Onset: 02/26/2015 Benign paroxysmal positional vertigo Sheng Bush M.D. Onset: 08/30/2019 Dyspnea Sheng Bush M.D. Onset: 08/18/2019 Gastro-esophageal reflux disease with Sheng Bush M.D. Onset: 2018 esophagitis Concussion with no loss of consciousness Sheng Bush M.D. Onset: 2018 Low back pain Sheng Bush M.D. Onset: 05/12/2019 Infective myositis Sheng Bush M.D. Onset: 05/12/2019 Inactive Problems Low back pain Sheng Bush M.D. Onset: 05/12/2019 Inactive: 05/12/2019 Social History Type Date Description Comments Sex Unknown Tobacco Use Start: Unknown Nonsmoker quit 20 yrs ago ETOH Use Rare Tobacco Use Start: Unknown End: Patient is a former smoker Unknown Smoking Status Reviewed: 10/18/19 Patient is a former smoker Allergies, Adverse Reactions, Alerts Active Allergies Reaction Severity Comments Date Keflex 12/08/2007 Celebrex Lightheaded 03/08/2008 Augmentin upset stomach, intolerance, not 10/30/2009 allergy Biaxin severe nausea 05/21/2011 Hydrocodone dizziness nausea 07/14/2013 Amoxicillin Urticaria, itching 06/14/2014 Lisinopril Cough 02/26/2015 Bactrim Itchy 08/29/2016 Medications Active Medications SIG Qnty Indications Ordering Date Provider Ciprofloxacin HCL 1 tab by mouth 14tabs Sheng FDinora 10/21/2019 250mg twice a day x 7 Rasheeda Bush Tablets days Famotidine take 1 tablet by 180tabs Sheng FDinora 08/18/2019 20mg Tablets mouth twice Rasheeda Bush daily Carafate 1 g on an empty 840ml K21.0 Char C. 08/11/2019 1GM/10ML stomach before Kapil, BAKERY TEAM LEADER Suspension meals three times a day Potassium Chloride ER Take 2 Tablets 180tabs Sheng Andrew 12/06/2015 By Mouth Once Rasheeda Bush 10Meq Tablets ER Daily Losartan Potassium take 1 tablet by 90tabs Digna 04/10/2015 25mg mouth twice a Kandy, SHIRT LINE OPERATOR Tablets day Cyanocobalamin 1ml injected sc 12ml D51.8 Sheng FDinora 11/02/2014 1000mcg/ML monthly Rasheeda Bush Solution Xanax 1/2-1 tabs by 30tabs Margot Raza, 09/12/2008 0.25mg Tablets mouth three SHIRT LINE OPERATOR times a day as needed anxiety Calcium 1200 1 by mouth once Unknown Tabs a day Meclizine HCL 1 by mouth three 30tabs Sheng Kamran 12.5mg times a day as Rasheeda Bush Tablets needed dizziness History Medications Azithromycin take 2 tablets 6tabs Sheng FDinora Bush, 09/02/2019 - 250mg by mouth on day M.D. 09/02/2019 Tablets 1 then 1 tablet on days 2 through 5 Azithromycin take 2 tablets 6tabs J01.90 Sheng FDinora Bush, 09/02/2019 - 250mg by mouth today M.D. 09/12/2019 Tablets then take 1 tablet daily for next 4 days Omeprazole take one by 60caps Char Gil 08/11/2019 - 20mg Capsules mouth twice DENNY Dick 08/18/2019 DR daily. Nitrofurantoin Monohyd 1 by mouth 20caps N39.0 Margot Raza, SHIRT LINE OPERATOR 2018 - Macro twice a day for 08/30/2019 100mg Capsules 10 days Medications Administered in Office Medication SIG Qnty Indications Ordering Provider Date B-12 Injection Sheng Bush M.D. 10/04/2019 Injection Injection Subcutaneous Or Sheng Bush M.D. 10/04/2019 Intramuscular Injection B-12 Injection Sheng Bush M.D. 08/30/2019 Injection Injection Subcutaneous Or Sheng Bush M.D. 08/30/2019 Intramuscular Injection B-12 Injection Sheng Bush M.D. 07/29/2019 Injection Injection Subcutaneous Or Sheng Bush M.D. 07/29/2019 Intramuscular Injection B-12 Injection Sheng Bush M.D. 07/01/2019 Injection Injection Subcutaneous Or Sheng Bush M.D. 07/01/2019 Intramuscular Injection B-12 Injection Sheng Bush M.D. 06/07/2019 Injection Injection Subcutaneous Or Sheng Bush M.D. 06/07/2019 Intramuscular Injection B-12 Injection Sheng Bush M.D. 04/29/2019 Injection Injection Subcutaneous Or Sheng Bush M.D. 04/29/2019 Intramuscular Injection B-12 Injection Sheng FDinora Bush M.D. 04/05/2019 Injection Injection Subcutaneous Or Sheng F. Rasheeda Bush 04/05/2019 Intramuscular Injection B-12 Injection Char Dick, BAKERY TEAM LEADER 02/24/2019 Injection B-12 Injection Char Dick, BAKERY TEAM LEADER 02/24/2019 Injection Injection Subcutaneous Or Char Dick, BAKERY TEAM LEADER 02/24/2019 Intramuscular Injection B-12 Injection Sheng FDinora Bush M.D. 01/28/2019 Injection Injection Subcutaneous Or Sheng F. Rasheeda Bush 01/28/2019 Intramuscular Injection B-12 Injection Sheng F. Rasheeda Bush 12/31/2018 Injection Injection Subcutaneous Or Sheng F. Rasheeda Bush 12/31/2018 Intramuscular Injection B-12 Injection Char Dick, BAKERY TEAM LEADER 11/30/2018 Injection Injection Subcutaneous Or Char Dick, BAKERY TEAM LEADER 11/30/2018 Intramuscular Injection B-12 Injection Sheng FDinora Bush M.D. 11/05/2018 Injection Injection Subcutaneous Or Sheng F. Rasheeda Bush 11/05/2018 Intramuscular Injection B-12 Injection Sheng FDinora Bush M.D. 09/30/2018 Injection Injection Subcutaneous Or Sheng F. Rasheeda Bush 09/30/2018 Intramuscular Injection B-12 Injection Sheng F. Rasheeda Bush 08/31/2018 Injection Injection Subcutaneous Or Sheng F. Rasheeda Bush 08/31/2018 Intramuscular Injection B-12 Injection Sheng F. Rasheeda Bush 07/30/2018 Injection Injection Subcutaneous Or Sheng F. Rasheeda Bush 07/30/2018 Intramuscular Injection B-12 Injection Sheng F. Rasheeda Bush 06/24/2018 Injection Injection Subcutaneous Or Sheng F. Rasheeda Bush 06/24/2018 Intramuscular Injection B-12 Injection Sheng F. Rasheeda Bush 06/02/2018 Injection Injection Subcutaneous Or Sheng F. Rasheeda Bush 06/02/2018 Intramuscular Injection B-12 Injection Sheng F. Rasheeda Bush 05/04/2018 Injection Injection Subcutaneous Or Sheng F. Rasheeda Bush 05/04/2018 Intramuscular Injection B-12 Injection Sheng F. Rasheeda Bush 04/06/2018 Injection Injection Subcutaneous Or Sheng F. Rasheeda Bush 04/06/2018 Intramuscular Injection B-12 Injection Sheng F. Rasheeda Bush 02/25/2018 Injection Injection Subcutaneous Or Sheng F. Rasheeda Bush 02/25/2018 Intramuscular Injection B-12 Injection Sheng F. Rasheeda Bush 01/27/2018 Injection Injection Subcutaneous Or Sheng F. Rasheeda Bush 01/27/2018 Intramuscular Injection B-12 Injection Sheng F. Rasheeda Bush 12/28/2017 Injection Injection Subcutaneous Or Sheng F. Rasheeda Bush 12/28/2017 Intramuscular Injection B-12 Injection Sheng F. Rasheeda Bush 11/26/2017 Injection Injection Subcutaneous Or Sheng F. Rasheeda Bush 11/26/2017 Intramuscular Injection B-12 Injection Sheng F. Rasheeda Bush 10/30/2017 Injection Injection Subcutaneous Or Sheng F. Rasheeda Bush 10/30/2017 Intramuscular Injection B-12 Injection Digna Kandy, SHIRT LINE OPERATOR 09/29/2017 Injection Injection Subcutaneous Or Digna Kandy, SHIRT LINE OPERATOR 09/29/2017 Intramuscular Injection B-12 Injection Sheng F. Rasheeda Bush 08/27/2017 Injection Injection Subcutaneous Or Sheng F. Rasheeda Bush 08/27/2017 Intramuscular Injection B-12 Injection Margot Ry, SHIRT LINE OPERATOR 07/27/2017 Injection Injection Subcutaneous Or Margot Ry, SHIRT LINE OPERATOR 07/27/2017 Intramuscular Injection B-12 Injection Sheng F. Rasheeda Bush 07/01/2017 Injection Injection Subcutaneous Or Sheng F. Rasheeda Bush 07/01/2017 Intramuscular Injection B-12 Injection Sheng F. Rasheeda Bush 05/29/2017 Injection Injection Subcutaneous Or Sheng F. Rasheeda Bush 05/29/2017 Intramuscular Injection B-12 Injection Sheng F. Rasheeda Bush 04/30/2017 Injection Injection Subcutaneous Or Sheng F. Rachelle, M.D. 04/30/2017 Intramuscular Injection B-12 Injection Sheng Bush M.D. 03/12/2017 Injection Injection Subcutaneous Or Sheng FDinora Bush M.D. 03/12/2017 Intramuscular Injection B-12 Injection Yesenia Estevez M.D. 01/27/2017 Injection Injection Subcutaneous Or Yesenia Estevez M.D. 01/27/2017 Intramuscular Injection B-12 Injection Shengpee Bush M.D. 12/29/2016 Injection Injection Subcutaneous Or Sheng FDinora Bush M.D. 12/29/2016 Intramuscular Injection B-12 Injection Sheng FDinora Bush M.D. 11/26/2016 Injection Injection Subcutaneous Or Sheng FDinora Bush M.D. 11/26/2016 Intramuscular Injection B-12 Injection Sheng FDinora Bush M.D. 10/30/2016 Injection Injection Subcutaneous Or Sheng FDinora Bush M.D. 10/30/2016 Intramuscular Injection B-12 Injection Sheng Bush M.D. 10/03/2016 Injection Injection Subcutaneous Or Sheng FDinora Bush M.D. 10/03/2016 Intramuscular Injection B-12 Injection Sheng Bush M.D. 09/02/2016 Injection Injection Subcutaneous Or Sheng Bush M.D. 09/02/2016 Intramuscular Injection B-12 Injection Sheng Bush M.D. 07/29/2016 Injection Injection Subcutaneous Or Sheng FDinora Bush M.D. 07/29/2016 Intramuscular Injection B-12 Injection Sheng Bush M.D. 07/03/2016 Injection Injection Subcutaneous Or Sheng FDinora Bush M.D. 07/03/2016 Intramuscular Injection B-12 Injection Sheng FDinora Bush M.D. 06/04/2016 Injection Injection Subcutaneous Or Sheng FDinora Bush M.D. 06/04/2016 Intramuscular Injection B-12 Injection Sheng F. Rasheeda Bush 04/29/2016 Injection Injection Subcutaneous Or Sheng FDinora Bush M.D. 04/29/2016 Intramuscular Injection B-12 Injection Sheng FDinora Bush M.D. 04/01/2016 Injection Injection Subcutaneous Or Sheng FDinora Bush M.D. 04/01/2016 Intramuscular Injection B-12 Injection Sheng F. Rasheeda Bush 02/21/2016 Injection Injection Subcutaneous Or Sheng F. Maylin BushDDinora 02/21/2016 Intramuscular Injection B-12 Injection Sheng F. RosendoRasheeda bailey 01/25/2016 Injection Injection Subcutaneous Or Sheng F. Osman Bush.DDinora 01/25/2016 Intramuscular Injection B-12 Injection Sheng F. Rasheeda Bush 01/01/2016 Injection Injection Subcutaneous Or Sheng F. Rasheeda Bush 01/01/2016 Intramuscular Injection B-12 Injection Sheng F. Rasheeda Bush 11/27/2015 Injection Injection Subcutaneous Or Sheng F. Rasheeda Bush 11/27/2015 Intramuscular Injection B-12 Injection Sheng F. RosendoRasheeda bailey 11/01/2015 Injection Injection Subcutaneous Or Sheng F. Rasheeda Bush 11/01/2015 Intramuscular Injection B-12 Injection Sheng F. Rasheeda Bush 10/01/2015 Injection Injection Subcutaneous Or Sheng F. Rasheeda Bush 10/01/2015 Intramuscular Injection B-12 Injection Sheng F. Rasheeda Bush 08/29/2015 Injection Injection Subcutaneous Or Sheng F. Rasheeda Bush 08/29/2015 Intramuscular Injection B-12 Injection Sheng F. Rasheeda Bush 08/01/2015 Injection Injection Subcutaneous Or Sheng F. Rasheeda Bush 08/01/2015 Intramuscular Injection B-12 Injection Sheng F. Rasheeda Bush 07/02/2015 Injection Injection Subcutaneous Or Sheng F. Rasheeda Bush 07/02/2015 Intramuscular Injection B-12 Injection Sheng F. Rasheeda Bush 05/29/2015 Injection Injection Subcutaneous Or Sheng F. Rasheeda Bush 05/29/2015 Intramuscular Injection B-12 Injection Sheng F. Rasheeda Bush 04/23/2015 Injection Injection Subcutaneous Or Sheng F. Maylin BushDDinora 04/23/2015 Intramuscular Injection B-12 Injection Sheng F. Rasheeda Bush 03/26/2015 Injection Injection Subcutaneous Or Sheng F. Shallish, M.D. 03/26/2015 Intramuscular Injection B-12 Injection Sheng FDinora Bush M.D. 02/26/2015 Injection Injection Subcutaneous Or Sheng F. Rasheeda Bush 02/26/2015 Intramuscular Injection B-12 Injection Sheng FDinora Rasheeda Bush 02/02/2015 Injection Injection Subcutaneous Or Sheng FDinora Rasheeda Bush 02/02/2015 Intramuscular Injection B-12 Injection CARMEL Lim 12/22/2014 Injection Injection Subcutaneous Or Sheng F. Rasheeda Bush 12/22/2014 Intramuscular Injection B-12 Injection Sheng FDinora Bush M.D. 11/28/2014 Injection Injection Subcutaneous Or Sheng FDinora Bush M.D. 11/28/2014 Intramuscular Injection B-12 Injection Sheng FDinora Bush M.D. 11/02/2014 Injection Injection Subcutaneous Or Sheng FDinora Bush M.D. 11/02/2014 Intramuscular Injection B-12 Injection Sheng FDinora Bush M.D. 10/03/2014 Injection Injection Subcutaneous Or Sheng F. Rasheeda Bush 10/03/2014 Intramuscular Injection B-12 Injection Sheng FDinora Bush M.D. 08/29/2014 Injection Injection Subcutaneous Or Sheng FDinora Bush M.D. 08/29/2014 Intramuscular Injection B-12 Injection Sheng F. Rasheeda Bush 07/28/2014 Injection Injection Subcutaneous Or Sheng F. Rasheeda Bush 07/28/2014 Intramuscular Injection B-12 Injection Sheng F. Rasheeda Bush 06/29/2014 Injection Injection Subcutaneous Or Sheng F. Rasheeda Bush 06/29/2014 Intramuscular Injection B-12 Injection Sheng F. Rasheeda Bush 06/01/2014 Injection Injection Subcutaneous Or Sheng F. Rasheeda Bush 06/01/2014 Intramuscular Injection B-12 Injection Sheng F. Rasheeda Bush 05/01/2014 Injection Injection Subcutaneous Or Sheng F. Rasheeda Bush 05/01/2014 Intramuscular Injection B-12 Injection Sheng F. Rasheeda Bush 03/29/2014 Injection Injection Subcutaneous Or Sheng F. Shallish, M.D. 03/29/2014 Intramuscular Injection B-12 Injection Sheng F. Rasheeda Bush 02/28/2014 Injection Injection Subcutaneous Or Sheng F. Rasheeda Bush 02/28/2014 Intramuscular Injection B-12 Injection Sheng F. Rasheeda Bush 01/31/2014 Injection Injection Subcutaneous Or Sheng F. Rasheeda Bush 01/31/2014 Intramuscular Injection B-12 Injection Sheng F. Rasheeda Bush 12/29/2013 Injection Injection Subcutaneous Or Sheng F. Rasheeda Bush 12/29/2013 Intramuscular Injection B-12 Injection Sheng F. Rasheeda Bush 11/23/2013 Injection Injection Subcutaneous Or Sheng F. Rasheeda Bush 11/23/2013 Intramuscular Injection B-12 Injection Sheng F. Rasheeda Bush 10/27/2013 Injection Injection Subcutaneous Or Sheng F. Rasheeda Bush 10/27/2013 Intramuscular Injection B-12 Injection Sheng F. Rasheeda Bush 09/23/2013 Injection Injection Subcutaneous Or Sheng F. Rasheeda Bush 09/23/2013 Intramuscular Injection B-12 Injection Sheng F. Rasheeda Bush 08/23/2013 Injection Injection Subcutaneous Or Sheng F. Rasheeda Bush 08/23/2013 Intramuscular Injection B-12 Injection Sheng F. Rasheeda Bush 07/14/2013 Injection Injection Subcutaneous Or Sheng F. Rasheeda Bush 07/14/2013 Intramuscular Injection B-12 Injection Sheng F. Rasheeda Bush 06/17/2013 Injection Injection Subcutaneous Or Sheng F. Rasheeda Bush 06/17/2013 Intramuscular Injection B-12 Injection Sheng F. Rasheeda Bush 05/10/2013 Injection Injection Subcutaneous Or Sheng F. Rasheeda Bush 05/10/2013 Intramuscular Injection B-12 Injection Sheng F. Rasheeda Bush 04/05/2013 Injection Injection Subcutaneous Or Sheng F. Rasheeda Bush 04/05/2013 Intramuscular Injection B-12 Injection Sheng F. Rasheeda Bush 03/03/2013 Injection Injection Subcutaneous Or Sheng FDinora Bush M.D. 03/03/2013 Intramuscular Injection B-12 Injection Sheng FDinora Bush M.D. 01/20/2013 Injection Injection Subcutaneous Or Sheng FDinora Rasheeda Bush 01/20/2013 Intramuscular Injection B-12 Injection Sheng KavithaDinora Bush M.D. 12/07/2012 Injection Injection Subcutaneous Or Sheng FDinora Bush M.D. 12/07/2012 Intramuscular Injection B-12 Injection Sheng FDinora Bush M.D. 11/04/2012 Injection Injection Subcutaneous Or Sheng FDinora Bush M.D. 11/04/2012 Intramuscular Injection B-12 Injection Sheng FDinora Bush M.D. 09/09/2012 Injection Injection Subcutaneous Or Sheng FDinora Bush M.D. 09/09/2012 Intramuscular Injection B-12 Injection Sheng FDinora Bush M.D. 07/29/2012 Injection Injection Subcutaneous Or Sheng FDinora Bush M.D. 07/29/2012 Intramuscular Injection B-12 Injection Donis Hurley M.D. 06/14/2012 Injection Injection Subcutaneous Or Donis Hurley M.D. 06/14/2012 Intramuscular Injection B-12 Injection Sheng Bush M.D. 05/04/2012 Injection Injection Subcutaneous Or Sheng Bush M.D. 05/04/2012 Intramuscular Injection B-12 Injection Sheng FDinora Bush M.D. 04/06/2012 Injection Injection Subcutaneous Or Sheng FDinora Bush M.D. 04/06/2012 Intramuscular Injection B-12 Injection Sheng FDinora Bush M.D. 03/05/2012 Injection Injection Subcutaneous Or Sheng FDinora Bush M.D. 03/05/2012 Intramuscular Injection B-12 Injection Sheng FDinora Bush M.D. 02/20/2012 Injection Injection Subcutaneous Or Sheng FDinora Bush M.D. 02/20/2012 Intramuscular Injection B-12 Injection Sheng F. Rasheeda Bush 01/19/2012 Injection Injection Subcutaneous Or Sheng FDinora Bush M.D. 01/19/2012 Intramuscular Injection B-12 Injection Sheng FDinora Bush M.D. 12/18/2011 Injection Injection Subcutaneous Or Sheng Bush M.D. 12/18/2011 Intramuscular Injection Immunizations CPT Code Status Date Vaccine Lot # [id number] Given 07/18/2019 High-Dose, Influenza Virus Vacccine-fluzone 65 and older 33908 Given 06/24/2018 Influenza Virus Vaccine, Recombinant Dna, [id number] [place] [address] Given 07/01/2017 Influenza Vac, [place], [place] [address] Given 07/02/2016 High-Dose, Influenza Virus Vacccine-fluzone 65 and older 65545 Given 07/12/2015 Influenza Vac, Quadrivalent, Slit Virus, Im [id number] [address] Given 06/28/2015 Influenza Vac, [place], [place] [address] Given 09/05/2014 Pneumococcal Immunization [id number] 50073 Given 07/04/2014 High-Dose, Influenza Virus Vacccine-fluzone 65 and older 21707 Given 06/26/2013 DO Not Use Split Influenza Virus Vaccine 84869 Given 06/23/2012 DO Not Use Split Influenza Virus Vaccine [id number] 46718 Given 12/30/2011 Tdap Tetanus, W Pertussis [id number] 49968 Given 06/10/2011 DO Not Use Split Influenza Virus Vaccine 94472 Given 06/22/2010 DO Not Use Split Influenza Virus Vaccine [id number] 59593 Given 11/08/2009 Zostivax [id number] 67607 Given 08/10/2009 H1N1 Virus Vaccine 27861 Given 06/16/2009 DO Not Use Split Influenza Virus Vaccine [id number] 80926 Given 07/08/2008 DO Not Use Split Influenza Virus Vaccine [id number] 45880 Given 07/20/2007 DO Not Use Split Influenza Virus Vaccine [id number] 57248 Given 08/17/2006 DO Not Use Split Influenza Virus Vaccine [id number] 33955 Given 07/25/2005 DO Not Use Split Influenza Virus Vaccine 59633 Given 07/08/2003 Td Immunization, For Use In Individuals 7 Years Or Older 36542 Given 07/08/2003 DT Immunization 13710 Given 07/04/2003 DO Not Use Split Influenza Virus Vaccine 57079 Given 07/13/2002 Whole Influenza Virus Vaccine 75452 Given 07/13/2002 DO Not Use Split Influenza Virus Vaccine 59581 Given 08/03/2001 DO Not Use Split Influenza Virus Vaccine 40137 Given 07/29/2000 DO Not Use Split Influenza Virus Vaccine Vital Signs Date Vital Result Comment 10/21/2019 11:12am BP Systolic 132 mmHg BP Diastolic 82 mmHg Heart Rate 82 /min Body Temperature 97.6 F Respiratory Rate 20 /min Weight 155.00 lb 10/18/2019 1:12pm BP Systolic 130 mmHg BP Diastolic 74 mmHg Heart Rate 68 /min Body Temperature 97.0 F Respiratory Rate 16 /min Height 62.25 inches 5'2.25" Weight 156.00 lb BMI (Body Mass Index) 28.3 kg/m2 Results Test Acquired Date Facility Test Result H/L Range Note Laboratory test 10/21/2019 [facility] C Reactive 7.16 mg/L Normal <8.01 1 finding Protein Comprehensive 10/21/2019 [facility]) Sodium 138 mEq/L 134-149 Metabolic Prof Potassium 4.3 mEq/L 3.6-5.5 Chloride 102 mEq/L 94-112 Carbon Dioxide 25 mEq/L 21-32 Glucose 85 mg/dL 70-105 BUN 23 mg/dL 6-26 Creatinine 0.8 mg/dL 0.6-1.4 BUN/Creat Ratio 28.8 CALC 8.0-36.0 Calcium 9.9 mg/dL 8.9-10.6 Total Protein 6.9 g/dL 6.4-8.3 Albumin 4.7 g/dL 3.8-5.5 Globulin 2.2 g/dL 2.0-4.8 A/G Ratio 2.1 CALC 0.6-2.3 Alk. Phosphatase 117 U/L High 30-110 Alt (SGPT) 18 U/L 7-35 Ast (Sgot) 18 U/L 5-34 Total Bilirubin 0.8 mg/dL 0.2-1.3 GFR Non- >60 ml/min/1.73m^ >=60 GFR >60 ml/min/1.73m^ >=60 CBC Electronic Fma 10/21/2019 [facility]) WBC 7.4 x10^3/UL 4.0- 10.0 RBC 4.45 x10^6/UL 3.93-6.00 HGB 13.0 g/dL 12.0-17.0 HCT 40 % 35-50 MCV 89.0 fL 80.0-95.0 MCH 29.2 pg 25.6-32.2 MCHC 32.8 g/dL 32.2-36.0 RDW-CV 12.3 % 11.6-14.4 PLT 222 x10^3/UL 163-400 MPV 10.1 fL 9.4-12.4 [place]# 3.80 x10^3/UL 1.56-6.13 Lymph# 2.59 x10^3/UL 1.18-3.74 [place]# 0.58 x10^3/UL 0.24-0.82 Eos # 0.4 x10^3/UL 0.0-0.5 Baso # 0.03 x10^3/UL 0.01-0.08 [place]% 51.5 % 34.0-70.0 Lymph % 35.1 % 20.0-52.0 [place]% 7.9 % 5.0-12.0 Eos% 5.0 % 0.7-7.0 Baso% 0.4 % 0.1-1.2 Urine Culture And 10/18/2019 [facility] Urine Culture SEE RESULT 2 Sensitivities BELOW Ua - Micro (a) 10/18/2019 family medicine Appearance clear (607)- - Color yellow Glucose, Urine (Fma/CMC/CTX) neg Bilirubin neg Ketones neg SP Grav >1.030 Blood neg PH 5.5 Protein neg Urobil 0.2 Nitrite neg Leukocytes (Fma/CMC/Centrex) moderate Hyaline - /Lpf Granular - /Lpf WBC (a,Centrex) 12-14 RBC - Mucus (Fma/CBC/Centrex) - /Lpf Epith mod amt /Lpf Bacteria trace /Hpf Amorphous (Fma/CMC/Centrex) small amt /Lpf Crystals, Fluid (Fma/CMC/CTX) - Z#Comments not clean catch CBC Auto Diff 08/29/2019 [facility] White Blood Count 7.3 10^3/uL Normal 3.5- 10.8 Red Blood Count 4.32 10^6/uL Normal 3.70-4.87 Hemoglobin 12.8 g/dL Normal 12.0-16.0 Hematocrit 37 % Normal 35-47 Mean Corpuscular Volume 86 fL Normal 80-97 Mean Corpuscular Hemoglobin 30 pg Normal 27-31 Mean Corpuscular HGB Conc 35 g/dL Normal 31-36 Red Cell Distribution Width 13 % Normal 10-15 Platelet Count 212 10^3/uL Normal 150-450 Mean Platelet Volume 8.3 fL Normal 7.4-10.4 Abs Neutrophils 4.4 10^3/uL Normal 1.5-7.7 Abs Lymphocytes 2.2 10^3/uL Normal 1.0-4.8 Abs Monocytes 0.5 10^3/uL Normal 0-0.8 Abs Eosinophils 0.2 10^3/uL Normal 0-0.6 Abs Basophils 0.1 10^3/uL Normal 0-0.2 Abs Nucleated RBC 0.0 10^3/uL Granulocyte % 60.2 % Lymphocyte % 29.5 % Monocyte % 7.0 % Eosinophil % 2.6 % Basophil % 0.7 % Nucleated Red Blood Cells % 0.0 Comp Metabolic Panel 08/29/2019 [facility] Sodium 142 mmol/L Normal 135-145 Potassium 4.1 mmol/L Normal 3.5-5.0 Chloride 109 mmol/L Normal 101-111 Co2 Carbon Dioxide 25 mmol/L Normal 22-32 Anion Gap 8 mmol/L Normal 2-11 Glucose 104 mg/dL High 70-100 Blood Urea Nitrogen 21 mg/dL Normal 6-24 Creatinine 0.87 mg/dL Normal 0.51-0.95 BUN/Creatinine Ratio 24.1 High 8-20 Calcium 9.9 mg/dL Normal 8.6-10.3 Total Protein 7.0 g/dL Normal 6.4-8.9 Albumin 4.2 g/dL Normal 3.2-5.2 Globulin 2.8 g/dL Normal 2-4 Albumin/Globulin Ratio 1.5 Normal 1-3 Total Bilirubin 0.70 mg/dL Normal 0.2-1.0 Alkaline Phosphatase 98 U/L Normal 34-104 Alt 14 U/L Normal 7-52 Ast 18 U/L Normal 13-39 Egfr Non- 64.4 >60 Egfr 77.9 >60 3 Laboratory test finding 08/29/2019 [facility] C Reactive Protein 5.46 mg/L Normal <8.01 Urinalysis Profile 08/29/2019 [facility] Urine Color Straw Urine Appearance Cloudy Urine Specific [place] 1.010 Normal 1.010-1.030 Urine pH 5.0 Normal 5-9 Urine Urobilinogen Negative Negative Urine Ketones Negative Negative Urine Protein Negative Negative Urine Leukocytes 1+ Abnormal Negative Urine Blood 2+ Abnormal Negative Urine Nitrite Negative Negative Urine Bilirubin Negative Negative Urine Glucose Negative Negative Urine White Blood Cell Trace(0-5/hpf) Absent Urine Red Blood Cell 3+(>10/hpf) Abnormal Absent Urine Bacteria Absent Absent Urine Culture And 08/29/2019 [facility] Urine Culture SEE RESULT 4 Sensitivities BELOW Laboratory test 08/16/2019 [facility] Erythrocyte Sed 14 mm/Hr Normal 0-29 finding Rate CBC Auto Diff 08/16/2019 [facility] White Blood Count 5.6 10^3/uL Normal 3.5- 10. 8 Red Blood Count 4.30 10^6/uL Normal 3.70-4.87 Hemoglobin 12.4 g/dL Normal 12.0-16.0 Hematocrit 37 % Normal 35-47 Mean Corpuscular Volume 86 fL Normal 80-97 Mean Corpuscular Hemoglobin 29 pg Normal 27-31 Mean Corpuscular HGB Conc 34 g/dL Normal 31-36 Red Cell Distribution Width 13 % Normal 10-15 Platelet Count 194 10^3/uL Normal 150-450 Mean Platelet Volume 8.2 fL Normal 7.4-10.4 Abs Neutrophils 3.3 10^3/uL Normal 1.5-7.7 Abs Lymphocytes 1.6 10^3/uL Normal 1.0-4.8 Abs Monocytes 0.4 10^3/uL Normal 0-0.8 Abs Eosinophils 0.2 10^3/uL Normal 0-0.6 Abs Basophils 0.0 10^3/uL Normal 0-0.2 Abs Nucleated RBC 0.0 10^3/uL Granulocyte % 58.7 % Lymphocyte % 29.5 % Monocyte % 7.8 % Eosinophil % 3.3 % Basophil % 0.7 % Nucleated Red Blood Cells % 0.0 Laboratory test finding 08/16/2019 [facility] C Reactive Protein 3.88 mg/L Normal <8.01 Comp Metabolic Panel 08/16/2019 [facility] Sodium 140 mmol/L Normal 135-145 Potassium 4.0 mmol/L Normal 3.5-5.0 Chloride 109 mmol/L Normal 101-111 Co2 Carbon Dioxide 26 mmol/L Normal 22-32 Anion Gap 5 mmol/L Normal 2-11 Glucose 92 mg/dL Normal 70-100 Blood Urea Nitrogen 15 mg/dL Normal 6-24 Creatinine 0.76 mg/dL Normal 0.51-0.95 BUN/Creatinine Ratio 19.7 Normal 8-20 Calcium 9.5 mg/dL Normal 8.6-10.3 Total Protein 6.8 g/dL Normal 6.4-8.9 Albumin 4.2 g/dL Normal 3.2-5.2 Globulin 2.6 g/dL Normal 2-4 Albumin/Globulin Ratio 1.6 Normal 1-3 Total Bilirubin 1.00 mg/dL Normal 0.2-1.0 Alkaline Phosphatase 103 U/L Normal 34-104 Alt 15 U/L Normal 7-52 Ast 16 U/L Normal 13-39 Egfr Non- 75.2 >60 Egfr 91.0 >60 5 Laboratory test 08/11/2019 [facility] Quickstrep negative Negative finding (607)- - Comp Metabolic 08/01/2019 [facility] Sodium 140 mmol/L Normal 135-145 Panel Potassium 4.0 mmol/L Normal 3.5-5.0 Chloride 107 [...] Egfr Non- 75.2 >60 Egfr 91.0 >60 6 Laboratory test finding 08/01/2019 [facility] Creatine Kinase(CK) 621 U/L High 10-223 7 C Reactive Protein 5.80 mg/L Normal <8.01 8 CBC Auto Diff 08/01/2019 [facility] White Blood Count 6.4 10^3/uL Normal 3.5- 10.8 Red Blood Count 4.42 10^6/uL Normal 3.70-4.87 [...] % Nucleated Red Blood Cells % 0.1 Laboratory test 08/01/2019 [facility] Erythrocyte Sed 15 mm/Hr Normal 0-29 9 finding Rate Xray 07/04/2019 [facility] Lumbar Spine 2 Or 3 <pending> [phone] Views Mammography Screening, Bilateral; 2-View Each Breast <pending> Urine Culture And 06/17/2019 [facility] Urine Culture SEE RESULT 10 Sensitivities BELOW Ua - Micro (Fma) 06/17/2019 family medicine Appearance Clear (607)- - Color Yellow Glucose, Urine (Fma/CMC/CTX) Negative Bilirubin Negative Ketones Trace SP Grav >=1.030 Blood Negative PH 5.5 Protein Negative Urobil 0.2 Nitrite Negative Leukocytes (Fma/CMC/Centrex) Small Hyaline - /Lpf Granular - /Lpf WBC (Fma,Centrex) 5-10 RBC 0-2 Mucus (Fma/CBC/Centrex) 0 /Lpf Epith Few /Lpf Bacteria 1+ /Hpf Amorphous (Fma/CMC/Centrex) - /Lpf Crystals, Fluid (Fma/CMC/CTX) - Lipid Profile 05/12/2019 [facility]) Cholesterol 191 mg/dL 120- 200 Triglycerides 109 mg/dL 30-200 HDL Cholesterol 48 mg/dL 30-85 LDL (Calculated) 121 CALC 0-129 VLDL Cholesterol 22 mg/dL 0-50 HDL Risk Factor 4.0 CALC 0.0-4.4 Basic Metabolic Profile 05/12/2019 [facility]) Sodium 142 mEq/L 134-149 Potassium 4.2 mEq/L 3.6-5.5 Chloride 110 mEq/L 94-112 Carbon Dioxide 24 mEq/L 21-32 Glucose 87 mg/dL 70-105 BUN 17 mg/dL 6-26 Creatinine 0.8 mg/dL 0.6-1.4 BUN/Creat Ratio 21.3 CALC 8.0-36.0 Calcium 9.6 mg/dL 8.6-10.2 GFR Non- >60 ml/min/1.73m^ >=60 GFR >60 ml/min/1.73m^ >=60 Laboratory test 05/12/2019 [facility]) TSH 0.70 mIU/L 0.50-6.00 finding Laboratory test 05/12/2019 [facility] C Reactive 5.14 mg/L Normal <8.01 11 finding Protein 1 [id number] 2 SEE RESULT BELOW Name: YADIRASHAYY LARSEN : [address]: Daisha Paredes [employer]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 END OF REPORT DEPARTMENT OF PATHOLOGY, [address] [place] [address] Harjit Rich M.D. Director [facility] # [id number] 3 Because ethnic data is not always [...] 5 Kidney failure <15 (or dialysis) 4 SEE RESULT BELOW Name: SHAYY ALEX : [address]: Barney Sheppard MD Acct: [id number] Unit: [id number] AGE: 68 Location: ED Re08/29/19 SEX: F Status: DEP ER SPEC: [id number] ROHINI: 08/29/[address]: Marlo SONI REQ: [id number] RECD: 08/29/19 STATUS: EBONY DHILLON DR: [facility] Sheng Bush MD _ SOURCE: URINE SPDESC: ORDERED: Urine Culture Procedure Result Reported Site Urine Culture Final 08/30/19- 1416 ML No Growth (<1,000 CFU/mL) * ML - Main Lab . END OF REPORT DEPARTMENT OF PATHOLOGY, [address] [place] [address] Harjit Rich M.D. Director [facility] # [id number] 5 Because ethnic data is not always [...] 5 Kidney failure <15 (or dialysis) 7 ORDERED: 02/25/19 EXPIRES: 8 ORDERED: 02/25/19 EXPIRES: 9 ORDERED: 02/25/19 EXPIRES: 10 SEE RESULT BELOW Name: SHAYY ALEX : [address]: Margot Raza NP Acct: [id number] Unit: [id number] AGE: 68 Location: [facility] Re06/17/19 SEX: F Status: REG REF SPEC: [id number] ROHINI: 06/17/19-[address]: Margot Raza NP REQ: [id number] RECD: 06/17/19108 STATUS: COMP _ SOURCE: URINE SPDESC: ORDERED: Urine Culture COMMENTS: 1 Britt Top Urine Cx Tube Urine Source: Random Procedure Result Reported Site Urine Culture Final 06/18/19- 1722 ML No Growth (<1,000 CFU/mL) * ML - Main Lab . END OF REPORT DEPARTMENT OF PATHOLOGY, [address] [place] [address] Harjit Rich M.D. Director [facility] # [id number] 11 1 [facility] [id number] Procedures Date Code Description Status 10/04/2019 80155 Injection Subcutaneous Or Intramuscular Completed 08/30/2019 16420 Injection Subcutaneous Or Intramuscular Completed 07/29/2019 78001 Injection Subcutaneous Or Intramuscular Completed 07/04/2019 27715715 Mammogram Completed 07/01/2019 56028 Injection Subcutaneous Or Intramuscular Completed 06/07/2019 28290 Injection Subcutaneous Or Intramuscular Completed 04/29/2019 45069 Injection Subcutaneous Or Intramuscular Completed 04/28/2019 75388939 Mammogram Completed 01/20/2018 [id number] Mammogram Completed 11/26/2017 974771360 Bone Mineral Density Test Completed 11/12/2016 80013681 Mammogram Completed 07/04/2015 70729392 Mammogram Completed 06/12/2014 61874079 Mammogram Completed 06/08/2013 33784650 Mammogram Completed 10/12/2012 93243305 Colonoscopy Completed 05/18/2012 12764557 Mammogram Completed 04/09/2011 56273948 Mammogram Completed 02/05/2009 64470387 Mammogram Completed 02/04/2008 41183866 Mammogram Completed 01/25/2007 35255329 Mammogram Completed 07/23/2004 14032860 Colonoscopy Completed Medical Devices Description No Information Available Encounters Type Date Location Provider Dx Diagnosis Office Visit 10/18/2019 Main Office Daisha Tayler Paredes, N39.0 Urinary tract 1:00p [employer]ER infection, site not specified R10.30 Lower abdominal pain, unspecified Office Visit 08/30/2019 5:00p Main Office Sheng Bush, H81.13 Benign paroxysmal M.D. vertigo, bilateral S06.0x0A Concussion without loss of consciousness, initial encounter I10 Essential (primary) hypertension K21.0 Gastro-esophageal reflux disease with esophagitis D51.8 Other vitamin B12 deficiency anemias Office Visit 08/18/2019 Main Office Sheng Andrew S06.0x0A Concussion without 3:40p Rasheeda Bush loss of consciousness, initial encounter I10 Essential (primary) hypertension K21.0 Gastro-esophageal reflux disease with esophagitis R06.02 Shortness of breath W01.198A Fall same lev from slip/trip w strike agnst oth object, init Office Visit 08/11/2019 Main Office Char Louise K21.0 Gastro-esophageal 3:30p Kapil, DENNY reflux disease with esophagitis J02.9 Acute pharyngitis, unspecified Office Visit 08/06/2019 12:00p Main Office Booker Palacio S06.0x0A Concussion without Rasheeda Serrato loss of consciousness, initial encounter W01.198A Fall same lev from slip/trip w strike agnst oth object, init Office Visit 06/17/2019 1:30p Main Office CARMEL Lim N39.0 Urinary tract infection, site not specified S70.12xA Contusion of left thigh, initial encounter W01.198A Fall same lev from slip/trip w strike agnst oth object, init Office Visit 05/12/2019 8:00a Main Office Sheng Bush, I10 Essential (primary) M.Morgan hypertension 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 perforation or abscess without bleeding 10/18/2019 N39.0 Urinary tract infection, site not Daisha Paredes, DENNY specified 10/18/2019 R10.30 Lower abdominal pain, unspecified Daisha Paredes, DENNY 10/04/2019 D51.8 Other vitamin B12 deficiency anemias Sheng Bush M.D. 08/30/2019 H81.13 Benign paroxysmal vertigo, bilateral Sheng Bush M.D. 08/30/2019 S06.0x0A Concussion without loss of consciousness, Sheng Bush M.D. initial encounter 08/30/2019 I10 Essential (primary) hypertension Sheng Bush M.D. 08/30/2019 K21.0 Gastro-esophageal reflux disease with Sheng Bush M.D. esophagitis 08/30/2019 D51.8 Other vitamin B12 deficiency anemias Sheng Bush M.D. 08/18/2019 S06.0x0A Concussion without loss of consciousness, Sheng Bush M.D. initial encounter 08/18/2019 I10 Essential (primary) hypertension Sheng Bush M.D. 08/18/2019 K21.0 Gastro-esophageal reflux disease with Sheng Bush M.D. esophagitis 08/18/2019 R06.02 Shortness of breath Sheng Bush M.D. 08/18/2019 W01.198A Fall on same level from slipping, Sheng Bush M.D. tripping and stumbling with subsequent striking against other object, initial encounter 08/11/2019 K21.0 Gastro-esophageal reflux disease with Char Dick NP esophagitis 08/11/2019 J02.9 Acute pharyngitis, unspecified Char Dick NP 08/06/2019 S06.0x0A Concussion without loss of consciousness, Booker Serrato M.D. initial encounter 08/06/2019 W01.198A Fall on same level from slipping, Booker Serrato M.D. tripping and stumbling with subsequent striking against other object, initial encounter 07/29/2019 D51.8 Other vitamin B12 deficiency anemias Sheng Bush M.D. 07/01/2019 D51.8 Other vitamin B12 deficiency anemias Sheng Bush M.D. 06/17/2019 N39.0 Urinary tract infection, site not Margot Ry, SHIRT LINE OPERATOR specified 06/17/2019 S70.12xA Contusion of left thigh, initial Margot Ry, SHIRT LINE OPERATOR encounter 06/17/2019 W01.198A Fall on same level from slipping, Margot Ry, SHIRT LINE OPERATOR tripping and stumbling with subsequent striking against other object, initial encounter 06/07/2019 D51.8 Other vitamin B12 deficiency anemias Sheng Bush M.D. 05/12/2019 I10 Essential (primary) hypertension Sheng Bush M.D. 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 05/12/2019 M54.5 Low back pain Sheng Bush M.D. 05/12/2019 K21.9 Gastro-esophageal reflux disease without Sheng Bush M.D. esophagitis 04/29/2019 D51.8 Other vitamin B12 deficiency anemias Sheng Bush M.D. Plan of Treatment Future Appointment(s):12/20/2019 2:40 pm - Sheng Bush M.D. at Main [id number]/04/2019 9:15 am - Sheng Bush M.D. at Main Nhstyp0811/17/2019 9: 00 am - Sheng Bush M.D. at Main Ybcdfi4810/21/2019 - Sheng Bush M.D.K57.32 Diverticulitis of large intestine without perforation or abscess without bleedingComments:Has had symptoms of left lower quadrant pain for several weeks. Her last colonoscopy did show diverticulosis of the sigmoid colon. She's had multiple allergies to antibiotics. But states that Cipro only made her tired. We'll try ciprofloxacin 250 mg twice a day for one week, set up a pelvic ultrasound, patient has had several CT scans because of head trauma over the past couple of months. She knows she needs a repeat EGD and colonoscopy. No symptoms of vertigo recently blood pressure is well-controlled cardiac status is stable. She'll return in 2 monthsAllNew Medication: Ciprofloxacin HCL 250 mg - 1 tab by mouth twice a day x 7 days Functional Status Description No Information Available Mental Status Description No Information Available Referrals Refer to Reason for Referral Status Appt Date Nestor Middleton MD for vertigo, hearing loss Scheduled 10/05/2019 [address] [facility] [place] [address] [phone] [facility] Physical PHYSICAL THERAPY evaluate and Scheduled Therapy treat low back pain [address] [facility] [address] [place], [place] [id number] [phone]
--- OUTSIDE RECORDS SUMMARY | 2019-10-24 17:56 | XMS REPORT | Continuity of Care Document ---
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 Allergies, Adverse Reactions, Alerts Active Allergies Reaction Severity Comments Date Ceftin 10/02/2008 Cipro 10/02/2008 Keflex 10/02/2008 Celebrex 10/02/2008 Penicillin 03/23/2017 Amoxicillin 10/14/2017 Hydrocodone 10/14/2017 Clarithromycin 10/14/2017 Clavulanic Acid 10/14/2017 Medications Active Medications SIG Qnty Indications Ordering Date Provider Saline Nasal [place] prn Unknown 09/14/2018 Folic Acid take 1 tablet by 90tabs Z79.899 Booker Salvador, 07/02/2018 1mg mouth once daily M.D. Tablets Xanax 1/2 -1 tablet po 30tabs Other Ordering 05/18/2013 0.25mg tid prn anxiety Provider Tablets Vitamin B 12 1ml Im q month Unknown 1000mcg/ML Tablets Losartan Potassium 2 by mouth every Unknown day 25mg Tablets Potassium 2 alternating with 90units Mauser, 10Meq 3 tabs daily if MD Nestor needed Meclizine HCL 2 tabs 3 times a Swetha IV , day (pt has not Santos Navas M.D. 12.5mg Tablets taken) prn Ondansetron as needed (pt has Swetha IV , 4mg not taken) Santos Navas M.D. Tablets Dispers Famotidine 1 by mouth every Unknown 20mg day Tablets Medications Administered in Office Medication SIG Qnty Indications Ordering Provider Date Technetium TC 99M Kris Mtz DO [facility] 08/22/2019 Tetrofosmin, Per Unit Dose Up To 40 Millicuries Injection Technetium TC 99M Kris Mtz DO [facility] 08/22/2019 Tetrofosmin, Per Unit Dose Up To 40 Millicuries Injection Depomedrol 40MG Shonda Cuellar M.D. 09/02/2017 Injection Depomedrol 40MG Shonda Cuellar M.D. 06/15/2017 Injection Depomedrol 80MG Rafy Chris M.D. 05/03/2013 Injection Celestone 3 mg and 3mg Nory Stephen, 05/17/2012 Injection Rasheeda Immunizations Description No Information Available Vital Signs Date Vital Result Comment 09/05/2019 8:45am Height 63 inches 5'3" Weight 153.00 lb Heart Rate 88 /min BP Systolic 118 mmHg BP Diastolic 70 mmHg BMI (Body Mass Index) 27.1 kg/m2 08/02/2019 9:33am Height 63 inches 5'3" Weight 155.50 lb Heart Rate 96 /min BP Systolic Sitting 122 mmHg BP Diastolic Sitting 78 mmHg Body Temperature 98.6 F Pain Level 1 O2 % BldC Oximetry 99 % BMI (Body Mass Index) 27.5 kg/m2 Results Test Acquired Date Facility Test Result H/L Range Note Laboratory test 08/01/2019 [facility] Erythrocyte Sed 15 mm/Hr Normal 0-29 [address] [place] [address] [phone] C Reactive Protein 5.80 mg/L Normal <8.01 2 CBC Auto 08/01/2019 [facility] White Blood 6.4 10^3/uL Normal 3.5-10.[address] [place] [address] [phone] Red Blood Count 4.42 10^6/uL Normal 3.70-4.87 [...] Blood Cells % 0.1 Comp Metabolic 08/01/2019 [facility] Sodium 140 mmol/L Normal 135-[address] [place] [address] [phone] Potassium 4.0 mmol/L Normal 3.5-5.0 Chloride 107 [...] Egfr 91.0 >60 3 Laboratory test 08/01/2019 [facility] Creatine 621 U/L High 10 -223 4 finding [address]) [place] [address] [phone] Laboratory test 04/29/2019 [facility] Erythrocyte Sed 11 mm/Hr Normal 0-[address] [place] [address] [phone] C Reactive Protein 5.48 mg/L Normal <8.01 Comp Metabolic 04/29/2019 [facility] Sodium 141 mmol/L Normal 135-[address] [place] [address] [phone] Potassium 4.0 mmol/L Normal 3.5-5.0 Chloride 108 [...] Egfr 85.8 >60 5 Laboratory test 04/29/2019 [facility] Creatine 558 U/L High 10 -[address] Kinase(CK) [place], [place] [address] [phone] CBC Auto Diff 04/29/2019 [facility] White Blood 6.5 Normal 3.5 -10.[address] Count 10^3/[place] [address] [phone] Red Blood Count 4.18 10^6/uL Normal 3.70-4.87 [...] Blood Cells % 0.0 Laboratory test 03/10/2019 [facility] Creatine 548 U/L High 10 -[address] Kinase(CK) [place], [place] [address] [phone] Erythrocyte Sed Rate 24 mm/Hr Normal 0-29 C Reactive Protein 18.65 mg/L High <8.01 CBC Auto 03/10/2019 [facility] White Blood 6.3 10^3/uL Normal 3.5-10.[address] [place] [address] [phone] Red Blood Count 4.43 10^6/uL Normal 3.70-4.87 [...] Blood Cells % 0.1 Comp Metabolic 03/10/2019 [facility] Sodium 142 mmol/L Normal 135-[address] [place] [address] [phone] Potassium 3.9 mmol/L Normal 3.5-5.0 Chloride 109 [...] (or dialysis) Procedures Date Code Description Status 08/22/2019 20130 Stress Test Completed 08/22/2019 99013 Myocardial Perfusion Imaging Tomographic (Spect) Completed Multiple Studies 08/19/2019 59667 ECHO Transthoracic, Real-Time 2D With Doppler And Completed Color Flow 08/19/2019 02272 ECHO Transthoracic, Real-Time 2D With Doppler And Completed Color Flow 07/27/2019 41932 EKG Tracing & Interpretation Completed 03/24/2019 [id number] Diabetic Retinal Eye Exam Completed 01/25/2019 823005675 Diabetic Retinal Eye Exam Completed 01/04/2019 814441589 Diabetic Retinal Eye Exam Completed 12/23/2018 834665259 Diabetic Retinal Eye Exam Completed 12/09/2018 073062381 Diabetic Retinal Eye Exam Completed 2018 527137893 Diabetic Retinal Eye Exam Completed 11/18/2018 120392030 Diabetic Retinal Eye Exam Completed 10/21/2018 095915356 Diabetic Retinal Eye Exam Completed 10/13/2018 004875808 Diabetic Retinal Eye Exam Completed 12/08/2017 146547519 Bone Mineral Density Test Completed Medical Devices Description No Information Available Encounters Type Date Location Provider Dx Diagnosis Office Visit 08/02/2019 Rheumatology Booker Salvador, M35.3 Polymyalgia 9:20[facility] M60.89 Other myositis, multiple sites Office Visit 07/27/2019 3:40[facility] Cardiology Nestor F. I10 Essential (primary) Rasheeda Rogers hypertension R06.02 Shortness of breath M60.89 Other myositis, multiple sites Office Visit 05/02/2019 8:40a Rheumatology Booker M35.3 Polymyalgia [facility] M.D. rheumatica M85.9 Disorder of bone density and structure, unspecified M54.5 Low back pain M60.89 Other myositis, multiple sites Assessments Date Code Description Provider 09/05/2019 F07.81 Postconcussional syndrome Karsten Ashford, DENNY 09/05/2019 M54.81 Occipital neuralgia Karsten Ashford, CONSTRUCTION SUPERVISOR 09/05/2019 M79.10 Myalgia, unspecified site Karsten Ashford, DENNY 08/22/2019 R06.02 Shortness of breath Kris Mtz DO [facility] 08/22/2019 R06.02 Shortness of breath Nestor Rogers M.D. 08/22/2019 I10 Essential (primary) hypertension Nestor Rogers M.D. 08/19/2019 R06.02 Shortness of breath Nestor Rogers M.D. 08/19/2019 R06.02 Shortness of breath [facility] ECHO Schedule 08/02/2019 M35.3 Polymyalgia rheumatica Booker Salvador M.D. [...] Booker Salvador M.D. at [facility]09/05/2019 - Karsten Ashford, NPF07.81 Postconcussional syndromeFollow up:PRNM54.81 Occipital lfqdteoxoZ77.10 Myalgia, unspecified site Functional Status Description No Information Available Mental Status Description No Information Available Referrals Description No Information Available
--- OUTSIDE RECORDS SUMMARY | 2019-10-24 17:56 | XMS REPORT | Continuity of Care Document ---
:1950 External Reference #:[id number] Author Name Daisha Paredes, DEN[place] Address [address] [place] [address] Care Team Providers Name Role Phone Sheng Bush MD - Family Medicine Care Team Information French Folder [phone] [facility] [place]ization Christmas Bell Ringer Care Team Information French Folder - Health Educator Stew Hsieh MD - Orthopaedic Surgery Care Team Information French Folder [phone] Leopoldo Jauregui MD - Rheumatology Care Team Information French Folder Nestor Rogers MD - Cardiovascular Care Team Information French Folder Disease [facility] Radiology Department - Diagnostic Care Team Information French Folder Radiology Wes Mijares MD - Care Team Information French Folder [phone] Otolaryngology Problems Active Problems Provider Date Benign [...] Alerts Active Allergies Reaction Severity Comments Date Cipro fatigued Keflex 12/08/2007 Celebrex Lightheaded 03/08/2008 Augmentin upset stomach, intolerance, not 10/30/2009 allergy Biaxin severe nausea 05/21/2011 Hydrocodone dizziness nausea 07/14/2013 Amoxicillin Urticaria, itching 06/14/2014 Lisinopril Cough 02/26/2015 Bactrim Itchy 08/29/2016 Medications Active Medications SIG Qnty Indications Ordering Date Provider Famotidine take 1 tablet by 180tabs Sheng Andrew 08/18/2019 20mg Tablets mouth twice Rasheeda Bush daily Carafate 1 g on an empty 840ml K21.0 Char C. 08/11/2019 1GM/10ML stomach before Kapil, MARKETING PLANNING MANAGER Suspension meals three times a day Potassium Chloride ER Take 2 Tablets 180tabs Sheng Andrew 12/06/2015 By Mouth Once Rasheeda Bush 10Meq Tablets ER Daily Losartan Potassium take 1 tablet by 90tabs Digna 04/10/2015 25mg mouth twice a Kandy, LINUX SYSTEMS ANALYST Tablets day Cyanocobalamin 1ml injected sc 12ml D51.8 Sheng Andrew 11/02/2014 1000mcg/ML monthly Rasheeda Bush Solution Xanax 1/2-1 tabs by 30tabs Margot Raza, 09/12/2008 0.25mg Tablets mouth three LINUX SYSTEMS ANALYST times a day as needed anxiety Calcium 1200 1 by mouth once Unknown Tabs a day Meclizine HCL 1 by mouth three 30tabs Sheng Andrew 12.5mg times a day as Rasheeda Bush Tablets needed dizziness History Medications Azithromycin take 2 tablets 6tabs Sheng Bush, 09/02/2019 - 250mg by mouth on day M.D. 09/02/2019 Tablets 1 then 1 tablet on days 2 through 5 Azithromycin take 2 tablets 6tabs J01.90 Sheng Bush, 09/02/2019 - 250mg by mouth today M.D. 09/12/2019 Tablets then take 1 tablet daily for next 4 days Omeprazole take one by 60caps Char Gil 08/11/2019 - 20mg Capsules mouth twice DENNY Dick 08/18/2019 daily. Nitrofurantoin Monohyd 1 by mouth 20caps N39.0 CARMEL Lim 2018 - Macro twice a day for [...] M.D. 04/29/2019 Intramuscular Injection B-12 Injection Sheng Bush M.D. 04/05/2019 Injection Injection Subcutaneous Or Sheng F. Rasheeda Bush 04/05/2019 Intramuscular Injection B-12 Injection Char Dick, MARKETING PLANNING MANAGER 02/24/2019 Injection B-12 Injection Char Dick, DENNY 02/24/2019 Injection Injection Subcutaneous Or Char Dick, MARKETING PLANNING MANAGER 02/24/2019 Intramuscular Injection B-12 Injection Sheng FDinora Bush M.D. 01/28/2019 Injection Injection Subcutaneous Or Sheng FDinora Bush M.D. 01/28/2019 Intramuscular Injection B-12 Injection Sheng FDinora Bush M.D. 12/31/2018 Injection Injection Subcutaneous Or Sheng FDinora Bush M.D. 12/31/2018 Intramuscular Injection B-12 Injection Char Dick, MARKETING PLANNING MANAGER 11/30/2018 Injection Injection Subcutaneous Or Char Dick, DENNY 11/30/2018 Intramuscular Injection B-12 Injection Sheng KavithaDinora Bush M.D. 11/05/2018 Injection Injection Subcutaneous Or Sheng F. Rasheeda Bush 11/05/2018 Intramuscular Injection B-12 Injection Sheng FDinora Bush M.D. 09/30/2018 Injection Injection Subcutaneous Or Sheng FDinora Bush M.D. 09/30/2018 Intramuscular Injection B-12 Injection Sheng FDinora Bush M.D. 08/31/2018 Injection Injection Subcutaneous Or Sheng FDinora Bush M.D. 08/31/2018 Intramuscular Injection B-12 Injection Sheng FDinora Bush M.D. 07/30/2018 Injection Injection Subcutaneous Or Sheng F. [...] Bush 05/04/2018 Intramuscular Injection B-12 Injection Sheng Kamran Bush M.D. 04/06/2018 Injection Injection Subcutaneous Or Sheng F. [...] Bush 11/26/2017 Intramuscular Injection B-12 Injection Sheng FDinora Bush M.D. 10/30/2017 Injection Injection Subcutaneous Or Sheng FDinora Bush M.D. 10/30/2017 Intramuscular Injection B-12 Injection Digna Kandy, LINUX SYSTEMS ANALYST 09/29/2017 Injection Injection Subcutaneous Or Digna Kandy, LINUX SYSTEMS ANALYST 09/29/2017 Intramuscular Injection B-12 Injection Sheng FDinora Bush M.D. 08/27/2017 Injection Injection Subcutaneous Or Hseng FDinora Bush M.D. 08/27/2017 Intramuscular Injection B-12 Injection Margot Raza, LINUX SYSTEMS ANALYST 07/27/2017 Injection Injection Subcutaneous Or Margot Raza, LINUX SYSTEMS ANALYST 07/27/2017 Intramuscular Injection B-12 Injection Sheng FDinora Bush M.D. 07/01/2017 Injection Injection Subcutaneous Or Sheng FDinora Bsuh M.D. 07/01/2017 Intramuscular Injection B-12 Injection Sheng FDinora Bush M.D. 05/29/2017 Injection Injection Subcutaneous Or Sheng FDinora Bush M.D. 05/29/2017 Intramuscular Injection B-12 Injection Sheng F. Rasheeda Bush 04/30/2017 Injection Injection Subcutaneous Or Sheng FDinora Bush M.D. 04/30/2017 Intramuscular Injection B-12 Injection Sheng FDinora Bush M.D. 03/12/2017 Injection Injection Subcutaneous Or Sheng F. Rasheeda Bush 03/12/2017 Intramuscular Injection B-12 Injection Yesenia Estevez M.D. 01/27/2017 Injection Injection Subcutaneous Or Yesenia Estevez M.D. 01/27/2017 Intramuscular Injection B-12 Injection Sheng FDinora Rasheeda Bush 12/29/2016 Injection Injection Subcutaneous Or Sheng F. Rasheeda Bush 12/29/2016 Intramuscular Injection B-12 Injection Sheng FDinora Bush M.D. 11/26/2016 Injection Injection Subcutaneous Or Sheng F. Rasheeda Bush 11/26/2016 Intramuscular Injection B-12 Injection Sheng F. Rasheeda Bush 10/30/2016 Injection Injection Subcutaneous Or Sheng F. Rasheeda uBsh 10/30/2016 Intramuscular Injection B-12 Injection Sheng F. Rasheeda Bush 10/03/2016 Injection Injection Subcutaneous Or Sheng F. Rasheeda Bush 10/03/2016 Intramuscular Injection B-12 Injection Sheng F. Rasheeda Bush 09/02/2016 Injection Injection Subcutaneous Or Sheng F. Rasheeda Bush 09/02/2016 Intramuscular Injection B-12 Injection Sheng FDinora Bush M.D. 07/29/2016 Injection Injection Subcutaneous Or Sheng F. Rasheeda Bush 07/29/2016 Intramuscular Injection B-12 Injection Sheng FDinora Bush M.D. 07/03/2016 Injection Injection Subcutaneous Or Sheng F. Rasheeda Bush 07/03/2016 Intramuscular Injection B-12 Injection Sheng F. Rasheeda Bush 06/04/2016 Injection Injection Subcutaneous Or Sheng F. Rasheeda Bush 06/04/2016 Intramuscular Injection B-12 Injection Sheng F. Rasheeda Bush 04/29/2016 Injection Injection Subcutaneous Or Sheng F. Rasheeda Bush 04/29/2016 Intramuscular Injection B-12 Injection Sheng F. Rasheeda Bush 04/01/2016 Injection Injection Subcutaneous Or Sheng F. Rasheeda Bush 04/01/2016 Intramuscular Injection B-12 Injection Sheng F. Rasheeda Bush 02/21/2016 Injection Injection Subcutaneous Or Sheng F. Rasheeda Bush 02/21/2016 Intramuscular Injection B-12 Injection Sheng F. Rasheeda Bush 01/25/2016 Injection Injection Subcutaneous Or Sheng F. Rasheeda Bush 01/25/2016 Intramuscular Injection B-12 Injection Sheng F. Rasheeda Bush 01/01/2016 Injection Injection Subcutaneous Or Sheng F. Rasheeda Bush 01/01/2016 Intramuscular Injection B-12 Injection Sheng F. Rasheeda Bush 11/27/2015 Injection Injection Subcutaneous Or Sheng F. Rasheeda Bush 11/27/2015 Intramuscular Injection B-12 Injection Sheng F. Rasheeda Bush 11/01/2015 Injection Injection Subcutaneous Or Sheng F. [...] 04/23/2015 Injection Injection Subcutaneous Or Sheng F. Rasheeda Bush 04/23/2015 Intramuscular Injection B-12 Injection Sheng F. Rasheeda Bush 03/26/2015 Injection Injection Subcutaneous Or Sheng F. Rasheeda Bush 03/26/2015 Intramuscular Injection B-12 Injection Sheng F. Rasheeda Bush 02/26/2015 Injection Injection Subcutaneous Or Sheng F. Rasheeda Bush 02/26/2015 Intramuscular Injection B-12 Injection Sheng F. Rasheeda Bush 02/02/2015 Injection Injection Subcutaneous Or Sheng F. Rasheeda Bush 02/02/2015 Intramuscular Injection B-12 Injection Margot CARMEL Raza 12/22/2014 Injection Injection Subcutaneous Or Sheng F. Rasheeda Bush 12/22/2014 Intramuscular Injection B-12 Injection Sheng F. Rasheeda Bush 11/28/2014 Injection Injection Subcutaneous Or Sheng F. Rasheeda Bush 11/28/2014 Intramuscular Injection B-12 Injection Sheng F. Rasheeda Bush 11/02/2014 Injection Injection Subcutaneous Or Sheng F. Rasheeda Bush 11/02/2014 Intramuscular Injection B-12 Injection Sheng F. Rasheeda Bush 10/03/2014 Injection Injection Subcutaneous Or Sheng F. Rasheeda Bush 10/03/2014 Intramuscular Injection B-12 Injection Sheng F. Rasheeda Bush 08/29/2014 Injection Injection Subcutaneous Or Sheng F. Rasheeda Bush 08/29/2014 Intramuscular Injection B-12 Injection Sheng F. [...] 03/29/2014 Injection Injection Subcutaneous Or Sheng F. Rasheeda Bush 03/29/2014 Intramuscular Injection B-12 Injection Sheng F. [...] Bush 08/23/2013 Intramuscular Injection B-12 Injection Sheng FDinora Bush M.D. 07/14/2013 Injection Injection Subcutaneous Or Sheng F. Rasheeda Bush 07/14/2013 Intramuscular Injection B-12 Injection Sheng FDinora Bush M.D. 06/17/2013 Injection Injection Subcutaneous Or Sheng F. Rasheeda Bush 06/17/2013 Intramuscular Injection B-12 Injection Sheng F. Rasheeda Bush 05/10/2013 Injection Injection Subcutaneous Or Sheng F. Rasheeda Bush 05/10/2013 Intramuscular Injection B-12 Injection Sheng F. Rasheeda Bush 04/05/2013 Injection Injection Subcutaneous Or Sheng F. Rasheeda uBsh 04/05/2013 Intramuscular Injection B-12 Injection Sheng F. Rasheeda Bush 03/03/2013 Injection Injection Subcutaneous Or Sheng F. Rasheeda Bush 03/03/2013 Intramuscular Injection B-12 Injection Sheng FDinora Bush M.D. 01/20/2013 Injection Injection Subcutaneous Or Sheng Kamran Rasheeda Bush 01/20/2013 Intramuscular Injection B-12 Injection Sheng KavithaDinora Bush M.D. 12/07/2012 Injection Injection Subcutaneous Or Sheng Kamran Rasheeda Bush 12/07/2012 Intramuscular Injection B-12 Injection Sheng KavithaDinora Bush M.D. 11/04/2012 Injection Injection Subcutaneous Or Sheng KavithaDinora Bush M.D. 11/04/2012 Intramuscular Injection B-12 Injection Sheng KavithaDinora Bush M.D. 09/09/2012 Injection Injection Subcutaneous Or Sheng Kamran Rasheeda Bush 09/09/2012 Intramuscular Injection B-12 Injection Sheng Bush M.D. 07/29/2012 Injection Injection Subcutaneous Or Sheng KavithaDinora Bush M.D. 07/29/2012 Intramuscular Injection B-12 Injection Donis Hurley M.D. 06/14/2012 Injection Injection Subcutaneous Or Donis Hurley M.D. 06/14/2012 Intramuscular Injection B-12 Injection Sheng Bush M.D. 05/04/2012 Injection Injection Subcutaneous Or Sheng Bush M.D. 05/04/2012 Intramuscular Injection B-12 Injection Sheng Bush M.D. 04/06/2012 Injection Injection Subcutaneous Or Sheng Kamran Rasheeda Bush 04/06/2012 Intramuscular Injection B-12 Injection Sheng Bush M.D. 03/05/2012 Injection Injection Subcutaneous Or Sheng Bush M.D. 03/05/2012 Intramuscular Injection B-12 Injection Sheng KavithaDinora Bush M.D. 02/20/2012 Injection Injection Subcutaneous Or Sheng Bush M.D. 02/20/2012 Intramuscular Injection B-12 Injection Sheng Bush M.D. 01/19/2012 Injection Injection Subcutaneous Or Sheng Bush M.D. 01/19/2012 Intramuscular Injection B-12 Injection hSeng KavithaDinora Bush M.D. 12/18/2011 Injection Injection Subcutaneous Or Sheng Bush M.D. 12/18/2011 Intramuscular Injection Immunizations CPT Code Status Date Vaccine Lot # [id number] Given 07/18/2019 High-Dose, Influenza Virus Vacccine-fluzone 65 and older 96235 Given 06/24/2018 Influenza Virus Vaccine, Recombinant Dna, [id number] [place] [address] Given 07/01/2017 Influenza Vac, Quadriv[place], [place] [address] Given 07/02/2016 High-Dose, Influenza Virus Vacccine-fluzone 65 and older 63600 Given 07/12/2015 Influenza Vac, Quadrivalent, Slit Virus, Im [id number] 05648 Given 06/28/2015 Influenza Vac, Quadriv[place], [place] [address] Given 09/05/2014 Pneumococcal Immunization [id number] 03202 Given 07/04/2014 High-Dose, Influenza Virus Vacccine-fluzone 65 and older 78114 Given 06/26/2013 DO Not Use Split Influenza Virus Vaccine 00192 Given 06/23/2012 DO Not Use Split Influenza Virus Vaccine [id number] 27655 Given 12/30/2011 Tdap Tetanus, W Pertussis [id number] 54307 Given 06/10/2011 DO Not Use Split Influenza Virus Vaccine 91725 Given 06/22/2010 DO Not Use Split Influenza Virus Vaccine [id number] 80078 Given 11/08/2009 Zostivax [id number] 82916 Given 08/10/2009 H1N1 Virus Vaccine 92383 Given 06/16/2009 DO Not Use Split Influenza Virus Vaccine [id number] 19978 Given 07/08/2008 DO Not Use Split Influenza Virus Vaccine [id number] 09859 Given 07/20/2007 DO Not Use Split Influenza Virus Vaccine [id number] 17015 Given 08/17/2006 DO Not Use Split Influenza Virus Vaccine [id number] 32716 Given 07/25/2005 DO Not Use Split Influenza Virus Vaccine 29336 Given 07/08/2003 Td Immunization, For Use In Individuals 7 Years Or Older 73566 Given 07/08/2003 DT Immunization 24914 Given 07/04/2003 DO Not Use Split Influenza Virus Vaccine 00459 Given 07/13/2002 Whole Influenza Virus Vaccine 21232 Given 07/13/2002 DO Not Use Split Influenza Virus Vaccine 02617 Given 08/03/2001 DO Not Use Split Influenza Virus Vaccine 99556 Given 07/29/2000 DO Not Use Split Influenza Virus Vaccine Vital Signs Date Vital Result Comment 10/18/2019 1:12pm BP Systolic 130 mmHg BP Diastolic 74 mmHg Heart Rate 68 /min Body Temperature 97.0 F Respiratory Rate 16 /min Height 62.25 inches 5'2.25" Weight 156.00 lb BMI (Body Mass Index) 28.3 kg/m2 08/30/2019 5:05pm BP Systolic 120 mmHg BP Diastolic 70 mmHg Heart Rate 74 /min Body Temperature 97.7 F Respiratory Rate 20 /min Weight 153.00 lb Results Test Acquired Date Facility Test Result H/L Range Note Ua - Micro (Fma) 10/18/2019 [facility] Appearance clear (607)- - Color yellow Glucose, Urine (Fma/CMC/CTX) neg Bilirubin neg Ketones neg SP Grav >1.030 Blood neg PH 5.5 Protein neg Urobil 0.2 Nitrite neg Leukocytes (Fma/CMC/Centrex) moderate Hyaline - /Lpf Granular - /Lpf WBC (Fma,Centrex) 12-14 RBC - Mucus (Fma/CBC/Centrex) - /Lpf Epith mod amt /Lpf Bacteria trace /Hpf Amorphous (Fma/CMC/Centrex) small amt /Lpf Crystals, Fluid (Fma/CMC/CTX) - Z#Comments not clean catch CBC Auto Diff 08/29/2019 [facility] White Blood Count 7.3 10^3/uL Normal 3.5- [...] Cells % 0.0 Comp Metabolic Panel 08/29/2019 [facility] Sodium 142 mmol/L Normal 135-145 Potassium 4.1 [...] Egfr Non- 64.4 >60 Egfr 77.9 >60 1 Laboratory test finding 08/29/2019 [facility] C Reactive Protein 5.46 mg/L Normal <8.01 Urinalysis Profile 08/29/2019 [facility] Urine Color Straw Urine Appearance Cloudy Urine Specific [place] 1.010 Normal 1.010-1.030 Urine pH 5.0 Normal 5-9 Urine Urobilinogen Negative Negative Urine Ketones Negative Negative Urine Protein Negative Negative Urine Leukocytes 1+ Abnormal Negative Urine Blood 2+ Abnormal Negative Urine Nitrite Negative Negative Urine Bilirubin Negative Negative Urine Glucose Negative Negative Urine White Blood Cell Trace(0-5/hpf) Absent Urine Red Blood Cell 3+(>10/hpf) Abnormal Absent Urine Bacteria Absent Absent Urine Culture And 08/29/2019 [facility] Urine Culture SEE RESULT BELOW 2 Sensitivities Comp Metabolic Panel 08/16/2019 [facility] Sodium 140 mmol/L Normal 135-145 Potassium 4.0 [...] >60 Egfr 91.0 >60 3 Laboratory test 08/16/2019 [facility] C Reactive Protein 3.88 mg/L Normal <8.01 finding CBC Auto Diff 08/16/2019 [facility] White Blood Count 5.6 10^3/uL Normal 3.5- 10.8 Red Blood Count 4.30 10^6/uL Normal 3.70-4.87 [...] Red Blood Cells % 0.0 Laboratory test 08/16/2019 [facility] Erythrocyte Sed 14 mm/Hr Normal 0-29 finding Rate Laboratory test 08/11/2019 [facility] Quickstrep negative Negative finding (607)- - Comp Metabolic 08/01/2019 [facility] Sodium 140 mmol/L Normal 135-145 Panel Potassium [...] Egfr Non- 75.2 >60 Egfr 91.0 >60 4 Laboratory test finding 08/01/2019 [facility] Creatine Kinase(CK) 621 U/L High 10-223 5 C Reactive Protein 5.80 mg/L Normal <8.01 6 CBC Auto Diff 08/01/2019 [facility] White Blood Count 6.4 10^3/uL Normal 3.5- [...] Blood Cells % 0.1 Laboratory test 08/01/2019 [facility] Erythrocyte Sed 15 mm/Hr Normal 0-29 7 finding Rate Xray 07/04/2019 [facility] Lumbar Spine 2 Or 3 <pending> [phone] Views Mammography Screening, Bilateral; 2-View Each Breast <pending> Urine Culture And 06/17/2019 [facility] Urine Culture SEE RESULT 8 Sensitivities BELOW Ua - Micro (Fma) 06/17/2019 [...] Fluid (Fma/CMC/CTX) - Lipid Profile 05/12/2019 [facility] Cholesterol 191 mg/dL 120- 200 Triglycerides 109 mg/dL 30-200 HDL Cholesterol 48 mg/dL 30-85 LDL (Calculated) 121 CALC 0-129 VLDL Cholesterol 22 mg/dL 0-50 HDL Risk Factor 4.0 CALC 0.0-4.4 Basic Metabolic Profile 05/12/2019 [facility] Sodium 142 mEq/L 134-149 Potassium 4.2 mEq/L [...] CMC C Reactive 5.14 mg/L Normal <8.01 9 finding Protein 1 Because ethnic data is not always [...] 5 Kidney failure <15 (or dialysis) 2 SEE RESULT BELOW Name: SHAYY ALEX : [address]: Barney Sheppard MD Acct: [id number] Unit: [id number] AGE: 68 Location: ED Re08/29/19 SEX: F Status: DEP ER SPEC: [id number] ROHINI: 08/29/[address]: Marlo SONI REQ: [id number] RECD: 08/29/19 STATUS: COMP [facility] DR: [facility] Sheng Bush MD _ SOURCE: URINE SPDESC: ORDERED: Urine Culture Procedure Result Reported Site Urine Culture Final 08/30/19- 1416 ML No Growth (<1,000 CFU/mL) * ML - Main Lab . END OF REPORT DEPARTMENT OF PATHOLOGY, [address] [place] [address] Harjit Rich M.D. Director [facility] # [id number] 3 Because ethnic data is not always [...] 5 Kidney failure <15 (or dialysis) 4 Because ethnic data is not always [...] 5 Kidney failure <15 (or dialysis) 5 ORDERED: 02/25/19 EXPIRES: 6 ORDERED: 02/25/19 EXPIRES: 7 ORDERED: 02/25/19 EXPIRES: 8 SEE RESULT BELOW Name: SHAYY ALEX : [address]: Margot Raza NP Acct: [id number] Unit: [id number] AGE: 68 Location: [facility] Re06/17/19 SEX: F Status: REG REF SPEC: [id number] ROHINI: 06/17/19-[address]: Margot Raza NP REQ: [id number] RECD: 06/17/19605 STATUS: COMP _ SOURCE: URINE SPDESC: ORDERED: Urine Culture COMMENTS: 1 Britt Top Urine Cx Tube Urine Source: Random Procedure Result Reported Site Urine Culture Final 06/18/19- 1722 ML No Growth (<1,000 CFU/mL) * ML - Main Lab . END OF REPORT DEPARTMENT OF PATHOLOGY, [address] [place] [address] aHrjit Rich M.D. Director [facility] # [id number] 1 [facility] [id number] Procedures Date Code Description Status 10/04/2019 35855 Injection Subcutaneous Or Intramuscular Completed 08/30/2019 72641 Injection Subcutaneous Or Intramuscular Completed 07/29/2019 10452 Injection Subcutaneous Or Intramuscular Completed 07/04/2019 09201904 Mammogram Completed 07/01/2019 17588 Injection Subcutaneous Or Intramuscular Completed 06/07/2019 75099 Injection Subcutaneous Or Intramuscular Completed 04/29/2019 28081 Injection Subcutaneous Or Intramuscular Completed 04/28/2019 [id number] Mammogram Completed 01/20/2018 [id number] Mammogram Completed 11/26/2017 [id number] Bone Mineral Density Test Completed 11/12/2016 [id number] Mammogram Completed 07/04/2015 [id number] Mammogram Completed 06/12/2014 [id number] Mammogram Completed 06/08/2013 [id number] Mammogram Completed 10/12/2012 [id number] Colonoscopy Completed 05/18/2012 [id number] Mammogram Completed 04/09/2011 [id number] Mammogram Completed 02/05/2009 [id number] Mammogram Completed 02/04/2008 [id number] Mammogram Completed 01/25/2007 [id number] Mammogram Completed 07/23/2004 [id number] Colonoscopy Completed Medical Devices Description No Information Available Encounters Type Date Location Provider Dx Diagnosis Office Visit 08/30/2019 Main Office Sheng Bush, 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, bilateral S06.0x0A Concussion without loss of [...] init Office Visit 08/11/2019 Main Office Char Gil K21.0 Gastro-esophageal 3:30p DENNY Dick reflux disease with esophagitis J02.9 Acute pharyngitis, unspecified Office Visit 08/06/2019 12:00p Main Office Booker Palacio S06.0x0A Concussion without Rasheeda Serrato loss of consciousness, initial encounter W01.198A Fall same lev from slip/trip w strike agnst oth object, init Office Visit 06/17/2019 1:30p Main Office Margot Raza, LINUX SYSTEMS ANALYST N39.0 Urinary tract infection, site not specified S70.12xA Contusion of left thigh, initial encounter W01.198A Fall same lev from slip/trip w strike agnst oth object, init Office Visit 05/12/2019 8:00a Main Office Sheng Bush, I10 Essential (primary) M.D. 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 initial encounter 08/06/2019 W01.198A Fall on same level from slipping, Booker Serrato M.D. tripping and stumbling with subsequent striking against other object, initial encounter 07/29/2019 D51.8 Other vitamin B12 deficiency anemias Sheng Bush M.D. 07/01/2019 D51.8 Other vitamin B12 deficiency anemias Sheng Bush M.D. 06/17/2019 N39.0 Urinary tract infection, site not CARMEL Lim specified 06/17/2019 S70.12xA Contusion of left thigh, initial CARMEL Lim encounter 06/17/2019 W01.198A Fall on same level from slipping, CARMEL Lim tripping and stumbling with subsequent striking against [...] Sheng Bush M.D. Plan of Treatment Future Appointment(s):11/04/2019 9:15 am - Sheng Bush M.D. at Main Zdyhsb3411/17/2019 9:00 am - Sheng Bush M.D. at Main Trixdw3610/18/2019 - Daisha Lester Paredes, NPN39.0 Urinary tract infection, site not specifiedComments: will treat based on culture; drink plenty of fluids, call if symptoms don't improve, you develop fever >100.4, vomiting or symptoms worsen Advised to call the office if experiencing symptoms. Patient verbalized understanding.R10.30 Lower abdominal pain, unspecifiedComments:will await culture results to determine if this is a UTI causing the pain3 CTs this fall - hold off on imaging; if getting worse or fever then we will do blood work and consider imaging - possibly KUBor US to reduce the radiation exposureFollow up: Close follow up with GI if symptoms worsen or Husseini if kidney stoneAllComments:Medication Management Patient Understands medications he 's taking? Yes No Are there Barriers to Adherence? Yes No Has the patient been asked about herbal supplements and therapies, andOTC meds? Yes No Care Plan1. Patient has been queried about patient's goals/ preferences and functional/lifestyle goals at relevant visits. If relevant, describe: na2. Treatment goals as explained to the patient: above3. Are there barriers to meeting treatment goals? Yes No If Yes, please describe: polypharmacy, disease process, comorbid conditions 4. Self-Management goals as described to the patient: Yes NoAs always, we strongly encourage a healthy diet and making physical activity a part of your every day life. If you have questions about how or where to start, please contact the office. Functional Status Description No Information Available Mental Status Description No Information Available Referrals Refer to Reason for Referral Status Appt Nestor Mei MD for vertigo, hearing loss Scheduled 10/05/[address] [place] [address] [phone] [facility] Physical PHYSICAL THERAPY evaluate and Scheduled Therapy treat low back pain [address] [facility] [address] [place], [place] [address] [phone]
--- OUTSIDE RECORDS SUMMARY | 2019-10-24 17:56 | XMS REPORT | Continuity of Care Document ---
:1950 External Reference #:[id number] Author Name Vashti Perez N.P. (transmitted by agent of provider Winsome Olguin) Address [address] [place] [address] Care Team Providers Name Role Phone Sheng Bush MD - Family Medicine Care Team Information Radio Commentator Problems Active Problems Provider Date Mitral valve disorder [place] [facility] Schedule Onset: 05/20/2013 Palpitations [place] [facility] Schedule Onset: 05/20/2013 Multiple joint pain [...] a former Unknown smoker Smoking Status Reviewed: 01/07/20 Patient is a former smoker Exercise Type/Frequency Does not exercise but plans to sign up today at [facility] Allergies, Adverse Reactions, Alerts Active Allergies Reaction Severity Comments Date Ceftin 10/02/2008 Cipro 10/02/2008 Keflex 10/02/2008 Celebrex 10/02/2008 Penicillin 03/23/2017 Amoxicillin 10/14/2017 Hydrocodone 10/14/2017 Clarithromycin 10/14/2017 Clavulanic Acid 10/14/2017 Medications Active Medications SIG Qnty Indications Ordering Date Provider Saline Nasal [place] prn Unknown 09/14/2018 Folic Acid Take 1 Tablet By 90tabs Z79.899 Booker [place], 07/02/2018 1mg Mouth Once Daily M.D. Tablets Xanax 1/2 -1 tablet po 30tabs Other Ordering 05/18/2013 0.25mg tid prn anxiety Provider Tablets Vitamin B 12 1ml Im q month Unknown 1000mcg/ML Tablets Losartan Potassium 1 tab by mouth Unknown twice daily 25mg Tablets Potassium 2 alternating with 90units [...] Date Technetium TC 99M Kris Mtz DO [facility] 08/22/2019 Tetrofosmin, Per Unit Dose Up To 40 Millicuries Injection Technetium TC 99M Kris Mtz DO [facility] 08/22/2019 Tetrofosmin, Per Unit Dose Up To 40 Millicuries Injection Depomedrol 40MG Shonda Cuellar M.D. 09/02/2017 Injection Depomedrol 40MG Shonda Cuellar M.D. 06/15/2017 Injection Depomedrol 80MG Rafy Chris M.D. 05/03/2013 Injection Celestone 3 mg and 3mg Norymelanie Stephen, 05/17/2012 Injection M.DDinora Immunizations Description No Information Available Vital Signs Date Vital Result Comment 10/04/2019 8:27am Height 63 inches 5'3" Weight 155.00 lb with shoes Heart Rate 84 /min irregular BP Systolic Sitting 132 mmHg Rue reg cuff BP Diastolic Sitting 88 mmHg Rue reg cuff BP Systolic Standing 122 mmHg Rue reg cuff BP Diastolic Standing 78 mmHg Rue reg cuff Respiratory Rate 18 /min BMI (Body Mass Index) 27.5 kg/m2 Ejection Fraction 55-60% ECHO 08/19/2019 09/05/2019 8:45am Height 63 inches 5'3" Weight 153.00 lb Heart Rate 88 /min BP Systolic 118 mmHg BP Diastolic 70 mmHg BMI (Body Mass Index) 27.1 kg/m2 Results Test Acquired Date Facility Test Result H/L Range Note Laboratory test 08/01/2019 [facility] Erythrocyte Sed 15 mm/Hr Normal 0-29 [address] [place] [address] [phone] C Reactive Protein 5.80 mg/L Normal <8.01 2 CBC Auto 08/01/2019 [facility] White Blood 6.4 10^3/uL Normal 3.5-10.[address] Count [place], [place] [id number] [phone] Red Blood Count 4.42 10^6/uL Normal 3.70-4.87 [...] Blood Cells % 0.1 Comp Metabolic 08/01/2019 [facility] Sodium 140 mmol/L Normal 135-[address] [place] [address] [phone] Potassium 4.0 mmol/L Normal 3.5-5.0 Chloride 107 [...] Egfr 91.0 >60 3 Laboratory test 08/01/2019 [facility] Creatine 621 U/L High 10 -223 4 finding Kinase(CK) [place] [address] [phone] Laboratory test 04/29/2019 [facility] Erythrocyte Sed 11 mm/Hr Normal 0-[address] [place] [address] [phone] C Reactive Protein 5.48 mg/L Normal <8.01 Comp Metabolic 04/29/2019 [facility] Sodium 141 mmol/L Normal 135-[address] [place] [address] [phone] Potassium 4.0 mmol/L Normal 3.5-5.0 Chloride 108 [...] Egfr 85.8 >60 5 Laboratory test 04/29/2019 [facility] Creatine 558 U/L High 10 -[address] Kinase(CK) [place] [address] [phone] CBC Auto Diff 04/29/2019 [facility] White Blood 6.5 Normal 3.5 -10.[address] Count 10^3/[place] [address] [phone] Red Blood Count 4.18 10^6/uL Normal 3.70-4.87 [...] % Nucleated Red Blood Cells % 0.0 1 ORDERED: 02/25/19 EXPIRES: 2 ORDERED: 02/25/19 [...] dialysis) Procedures Date Code Description Status 08/22/2019 21351 Stress Test Completed 08/22/2019 02711 Myocardial Perfusion Imaging Tomographic (Spect) Completed Multiple Studies 08/19/2019 42268 ECHO Transthoracic, Real-Time 2D With Doppler And Completed Color Flow 08/19/2019 18513 ECHO Transthoracic, Real-Time 2D With Doppler And Completed Color Flow 07/27/2019 97145 EKG Tracing & Interpretation Completed 03/24/2019 [id number] Diabetic Retinal Eye Exam Completed 01/25/2019 [id number] Diabetic Retinal Eye Exam Completed 01/04/2019 [id number] Diabetic Retinal Eye Exam Completed 12/23/2018 [id number] Diabetic Retinal Eye Exam Completed 12/09/2018 [id number] Diabetic Retinal Eye Exam Completed 2018 [id number] Diabetic Retinal Eye Exam Completed 11/18/2018 [id number] Diabetic Retinal Eye Exam Completed 10/21/2018 [id number] Diabetic Retinal Eye Exam Completed 10/13/2018 [id number] Diabetic Retinal Eye Exam Completed 12/08/2017 [id number] Bone Mineral Density Test Completed Medical Devices Description No Information Available Encounters Type Date Location Provider Dx Diagnosis Office Visit 09/05/2019 [place] [facility] Karsten Ashford NP 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 rheumatica M60.89 Other myositis, multiple sites Office Visit 07/27/2019 3:40p [place] [facility] Nestor Andrew I10 Essential (primary) Rasheeda Rogers hypertension R06.02 Shortness of breath M60.89 Other myositis, multiple sites Office Visit 05/02/2019 8:40a Rheumatology Booker Shafer5.3 Pol[facility]algia [facility] M.D. rheumatica M85.9 Disorder of bone density and structure, unspecified M54.5 Low back pain M60.89 Other myositis, multiple sites Assessments Date Code Description Provider 10/04/2019 I10 Essential (primary) hypertension Vashti Perez, N.P. 10/04/2019 R06.02 Dyspnea on exertion Vashti Perez, N.P. 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 08/22/2019 I10 Essential (primary) hypertension Nestor Rogers M.D. 08/19/2019 R06.02 Shortness of breath Nestor Rogers M.D. 08/19/2019 R06.02 Shortness of breath [place] [facility] Schedule 08/02/2019 M35.3 Polymyalgia rheumatica Booker [...] Booker Salvador M.D. Plan of Treatment Future Appointment(s):03/13/2020 2:40 pm - Nestor Rogers M.D. at [facility]12/01/2019 8:40 am - Booker Salvador M.D. at [facility]10/04/2019 - Vashti Perez, N.PDinoraI10 Essential (primary) hypertensionFollow up:move out [facility] 02/20206133H69.02 Dyspnea on exertion Functional Status Description No Information Available Mental Status Description No Information Available Referrals Description No Information Available
--- OUTSIDE RECORDS SUMMARY | 2019-10-24 17:56 | XMS REPORT | Continuity of Care Document ---
:1950 External Reference #:[id number] Author Name Vashti Perez N.P. (transmitted by agent of provider Leigh Ann [place]) Address [address] [place] [address] Care Team Providers Name Role Phone Sheng Bush MD - Family Medicine Care Team Information Hose Turner Problems Active Problems Provider Date Mitral valve disorder [place] [facility] Schedule Onset: 05/20/2013 Palpitations [place] [facility] Schedule Onset: 05/20/2013 Multiple joint pain [...] but plans to sign up today at [facility] Allergies, Adverse Reactions, Alerts Active Allergies Reaction Severity Comments Date Ceftin 10/02/2008 Cipro 10/02/2008 Keflex 10/02/2008 Celebrex 10/02/2008 Penicillin 03/23/2017 Amoxicillin 10/14/2017 Hydrocodone 10/14/2017 Clarithromycin 10/14/2017 Clavulanic Acid 10/14/2017 Medications Active Medications SIG Qnty Indications Ordering Date Provider Saline Nasal [place] prn Unknown 09/14/2018 Folic Acid take 1 tablet by 90tabs Z79.899 Booker Salvador, 07/02/2018 1mg mouth once daily M.D. Tablets Caltrate 600+D Plus take one 180units Booker Salvador, 12/03/2017 Minerals capsule/tablet by M.D. mouth twice daily, [id number] avoid yellow dye Chewtabs Xanax 1/2 -1 tablet po 30tabs Other [...] Date Technetium TC 99M Kris Mtz DO [facility] 08/22/2019 Tetrofosmin, Per Unit Dose Up To 40 Millicuries Injection Technetium TC 99M Kris Mtz, DO [facility] 08/22/2019 Tetrofosmin, Per Unit Dose Up [...] Result H/L Range Note Laboratory test 08/01/2019 [facility] Erythrocyte Sed 15 mm/Hr Normal 0-29 [address] [place] [address] [phone] C Reactive Protein 5.80 mg/L Normal <8.01 2 CBC Auto 08/01/2019 [facility] White Blood 6.4 10^3/uL Normal 3.5-10.[address] [place] [address] [phone] Red Blood Count 4.42 10^6/uL Normal 3.70-4.87 [...] Blood Cells % 0.1 Comp Metabolic 08/01/2019 [facility] Sodium 140 mmol/L Normal 135-[address] [place] [address] [phone] Potassium 4.0 mmol/L Normal 3.5-5.0 Chloride 107 [...] Egfr 91.0 >60 3 Laboratory test 08/01/2019 [facility] Creatine 621 U/L High 10 -[address] Kinase(CK) [place] [address] [phone] Laboratory test 04/29/2019 [facility] Erythrocyte Sed 11 mm/Hr Normal 0-[address] [place] [address] [phone] C Reactive Protein 5.48 mg/L Normal <8.01 Comp Metabolic 04/29/2019 [facility] Sodium 141 mmol/L Normal 135-[address] [place] [address] [phone] Potassium 4.0 mmol/L Normal 3.5-5.0 Chloride 108 [...] Egfr 85.8 >60 5 Laboratory test 04/29/2019 [facility] Creatine 558 U/L High 10 -[address] Kinase(CK) [place] [address] [phone] CBC Auto Diff 04/29/2019 [facility] White Blood 6.5 Normal 3.5 -10.[address] Count 10^3/[place] [address] [phone] Red Blood Count 4.18 10^6/uL Normal 3.70-4.87 [...] Blood Cells % 0.0 Laboratory test 03/10/2019 [facility] Creatine 548 U/L High 10 -[address] Kinase(CK) [place] [address] [phone] Erythrocyte Sed Rate 24 mm/Hr Normal 0-29 C Reactive Protein 18.65 mg/L High <8.01 CBC Auto 03/10/2019 [facility] White Blood 6.3 10^3/uL Normal 3.5-10.[address] [place] [address] [phone] Red Blood Count 4.43 10^6/uL Normal 3.70-4.87 [...] Blood Cells % 0.1 Comp Metabolic 03/10/2019 [facility] Sodium 142 mmol/L Normal 135-[address] [place] [address] [phone] Potassium 3.9 mmol/L Normal 3.5-5.0 Chloride 109 [...] dialysis) Procedures Date Code Description Status 08/22/2019 71144 Stress Test Completed 08/22/2019 19404 Myocardial Perfusion Imaging Tomographic (Spect) Completed Multiple Studies 08/19/2019 65787 ECHO Transthoracic, Real-Time 2D With Doppler And Completed Color Flow 08/19/2019 69599 ECHO Transthoracic, Real-Time 2D With Doppler And Completed Color Flow 07/27/2019 29496 EKG Tracing & Interpretation Completed 03/24/2019 [id number] Diabetic Retinal Eye Exam Completed 01/25/2019 [id number] Diabetic Retinal Eye Exam Completed 01/04/2019 807819650 Diabetic Retinal Eye Exam Completed 12/23/2018 [id number] Diabetic Retinal Eye Exam Completed 12/09/2018 587893223 Diabetic Retinal Eye Exam Completed 2018 [id number] Diabetic Retinal Eye Exam Completed 11/18/2018 281186031 Diabetic Retinal Eye Exam Completed 10/21/2018 [id number] Diabetic Retinal Eye Exam Completed 10/13/2018 727072644 Diabetic Retinal Eye Exam Completed 12/08/2017 [id number] Bone Mineral Density Test Completed Medical Devices Description No Information Available Encounters Type Date Location Provider Dx Diagnosis Office Visit 08/02/2019 Rheumatology Soni Bailey5.3 Polymyalgia 9:20a [facility] rheumatica M60.89 Other myositis, multiple sites Office Visit 07/27/2019 3:40p [place] [facility] Nestor Andrew I1Evans Essential (primary) Rasheeda Rogers hypertension R06.02 Shortness of breath M60.89 Other myositis, multiple sites Office Visit 05/02/2019 8:40a Rheumatology Booker Shafer5.3 Polymyalgia [facility] M.D. rheumatica M85.9 Disorder of bone density and structure, unspecified M54.5 Low back pain M60.89 Other myositis, multiple sites Assessments Date Code Description Provider 08/22/2019 R06.02 Shortness of breath Kris Mtz DO [facility] 08/22/2019 R06.02 Shortness of breath Nestor [...] Booker Salvador M.D. Plan of Treatment Future Appointment(s):09/05/2019 8:30 am - Karsten Ashford NP at [place] [facility]12/01/2019 8:40 am - Booker Salvador M.D. at [facility]08/02/2019 - Bookre Salvador M.D.M35.3 Polymyalgia rheumaticaComments:Please follow up with your primary care doctor for elevated blood lbwnkP45.89 Other myositis, multiple sitesFollow up:No evidence of autoimmune myositis; we will follow Follow up in 4 to 5 months or sooner if needed Functional Status Description No Information Available Mental Status Description No Information Available Referrals Description No Information Available
--- OUTSIDE RECORDS SUMMARY | 2019-10-24 17:56 | XMS REPORT | Continuity of Care Document ---
:1950 External Reference #:[id number] Author Name Ahmet Abdi M.D. Address [address] [place] [address] Care Team Providers Name Role Phone Sheng Bush M.D. - Internal Care Team Information Toy Consultant Medicine Booker Salvador MD - Rheumatology Care Team Information Toy Consultant [phone] Alvaro Timmons M.D. - Urology Care Team Information Toy Consultant [phone] Problems Active Problems Provider Date Acid reflux Onset: Arthritis Onset: Anxiety Onset: Hypercholesterolemia Onset: Seasonal allergy Onset: Essential hypertension Onset: Note: palpitations Neuropathy Onset: Note: right hand goes to sleep Combined form of senile cataract Colleen Lawson O.D. Onset: 10/13/2018 Retinal drusen Colleen Lawson O.D. 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 Onset: 11/18/2018 Other secondary cataract, bilateral Colleen Lawson O.D. Onset: 2018 Polymyalgia rheumatica Onset: Social History Type Date Description Comments Sex Unknown ETOH Use Denies alcohol use Tobacco Use Start: Unknown End: Unknown Patient is a former smoker Recreational Drug Use Denies Drug Use Smoking Status Reviewed: 10/13/19 Patient is a former smoker Allergies, Adverse Reactions, Alerts Active Allergies Reaction Severity Comments Date Ceftin Vomitting 10/23/2015 Cipro vomitting 10/23/2015 Keflex Nausea 10/23/2015 Celebrex Vomitting 10/23/2015 Augmentin Vomitting 10/23/2015 Biaxin Vomitting 10/23/2015 Hydrocodone 10/23/2015 Amoxicillin Hives 10/23/2015 Medications Active Medications SIG Qnty Indications Ordering Provider Date Ranitidine HCL Shallish, Sheng 150mg M.D. Tablets Folic Acid take 1 tablet by Unknown 1mg Tablets mouth once daily Potassium Chloride ER Shallish, Sheng M.D. 10Meq Tablets ER Losartan Potassium takes 2 daily Shallish, Sheng 25mg M.D. Tablets Famotidine Take 1 Tablet By Unknown 20mg Tablets Mouth Two Times Daily Immunizations Description No Information Available Vital Signs Description No Information Available Results Description No Information Available Procedures Description No Information Available Medical Devices Description No Information Available Encounters Description No Information Available Assessments Date Code Description Provider 10/13/2019 H59.033 Cystoid macular edema following cataract Ahmet Abdi M.D. surgery, bilateral 10/13/2019 Z96.1 Presence of intraocular lens Ahmet Abdi M.D. Plan of Treatment Future Appointment(s):03/27/2020 3:30 pm - Ahmet Abdi M.D. at Booker Gibson MD, 10/13/2019 - Ahmet Abdi M.D.H59.033 Cystoid macular edema following cataract surgery, bilateralComments:Smoking can increase the risk of developing or worsening any eye related disease, as well as affect your overall health. If you are a smoker, we strongly recommend that you quit.If you are not a smoker, we strongly recommend that you do not start.Follow up:1 Year Follow Up DFE You can expect to have your eyes dilated at your next visit. If Dr. Abdi orders any additional testing, it may require extra time. We recommend that you bring sunglasses, as dilation drops often make you light sensitive until they wear off. We always recommend you bring someone to drive you home if you are uncomfortable driving with your eyes dilated. If you have any questions before your next visit, feel free to call our office at .R96.1 Presence of intraocular lensComments:The artificial lens implants in both eyes appear to be stable at this time. I WILL GIVE YOU A GLASSES PRESCRIPTION WHICH SHOULD HELP CLEAR THE VISION Functional Status Description No Information Available Mental Status Description No Information Available Referrals Description No Information Available
[2019-10-24] MEDS ORDERED: Ondansetron INJ* 2 MG/ML VIAL IV ONE (19:46)
[2019-10-24] MEDS ORDERED: Ketorolac INJ* 30 MG/ML 1 ML VIAL IV PUSH ONE (19:46)
[2019-10-24] MEDS ORDERED: Lactated Ringers 1000 ML Bag* 1,000 ML IV ONE (19:46)
[2019-10-24] MEDS ORDERED: fentaNYL* 50 MCG/ML 2 ML VIAL (100 MCG VIAL) IV SLOW PU ONE ×3 (19:46→22:10)
[2019-10-24] MEDS ORDERED: Famotidine IV* 10 MG/ML 2 ML (20 mg) IV SLOW PU ONE (19:46)
--- NOTE | 2019-10-24 19:50 | ED ---
GI/ HPI - HPI Summary HPI Summary: The patient is a 68 y/o female presenting to [facility] accompanied by family with a chief complaint of severe right flank pain onset around 1400 today. She reports that today she began to experience pain in the right flank which has since severely worsened since onset. She endorses nausea but denies any vomiting. Pain is rated 10/10 in severity. There are no alleviating factors. She notes a known kidney stone on the right as well as history of kidney stones that have all required surgery in the past. She is currently taking Ciprofloxacin for diverticulosis. PMHx: HTN, GERD, polymyalgia rheumatica. FHx: kidney stones. Former smoker, no EtOH, no substance use. Medications reviewed. Allergies noted. - History of Current Complaint Chief Complaint: EDFlankPain Time Seen by Provider: 10/24/19 19:32 Stated Complaint: LOW BACK PAIN PER PT Hx Obtained From: Patient Onset/Duration: Started Hours Ago - 1400, Still Present Timing: Constant Severity: Mild Current Severity: Severe Pain Intensity: 10 Location of Pain: Flank - right Pain Characteristics: Sharp Associated Signs and Symptoms: Positive: Nausea. Negative: Vomiting - Additional Pertinent History Primary Care Physician: [id number] - Allergy/Home Medications Allergies/Adverse Reactions: Allergies Allergy/AdvReac Type Severity Reaction Status Date / Time celecoxib [From Celebrex] Allergy Intermediate Fatigue Verified 10/24/19 15:55 amoxicillin Allergy GI Upset Verified 10/24/19 15:55 cefuroxime Allergy Nausea And Verified 10/24/19 15:55 Vomiting cephalexin Allergy Dizziness Verified 10/24/19 15:55 ciprofloxacin Allergy Dizziness Verified 10/24/19 15:55 clarithromycin Allergy Nausea Verified 10/24/19 15:55 clavulanic acid Allergy GI Upset Verified 10/24/19 15:55 [From Augmentin] hydrocodone Allergy Nausea Verified 10/24/19 15:55 latex Allergy itchy Verified 10/24/19 15:55 Penicillins Allergy Itching Verified 10/24/19 15:55 bandaid Allergy Itching Uncoded 10/24/19 15:55 Home Medications: Home Medications Cyanocobalamin TAB* [Vitamin B12 TAB*] 1,000 mcg PO QAM 10/24/19 [History Confirmed 10/24/19] Famotidine TAB* [Pepcid 20 MG TAB*] 20 mg PO BID 10/24/19 [History Confirmed ] Folic Acid TAB* [Folvite TAB*] 1 mg PO DAILY 10/24/19 [History Confirmed ] Losartan TAB* [Cozaar TAB*] 25 mg PO BID 10/24/19 [History Confirmed 10/24/19] Potassium Chlor TAB* [Klor Con ER TAB*] 20 meq PO DAILY 10/24/19 [History Confirmed 10/24/19] PMH/Surg Hx/FS Hx/Imm Hx Endocrine/Hematology History: Denies: Hx Diabetes Cardiovascular History: Reports: Hx Hypertension - ON MEDS, Other Cardiovascular Problems/Disorders - CLEAN CARDIAC CATHETERIZATION, HX OF GERD ALSO Denies: Hx Hypercholesterolemia, Hx Pacemaker/ICD GI History: Reports: Hx Gastroesophageal Reflux Disease, Hx Hiatal Hernia - ? 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, Other Musculoskeletal History - Polymyalgia rheumatica Sensory History: Reports: Hx Cataracts - BILATERAL, Hx Contacts or Glasses - Reading only Denies: Hx Deafness, Hx Hearing Aid Opthamlomology History: Reports: Hx Cataracts - BILATERAL, Hx Contacts or Glasses - Reading only Neurological History: Reports: Other Neuro Impairments/Disorders - vertigo Psychiatric History: Reports: Hx Anxiety, Hx Depression - XANAX PRN , RARELY USES Denies: Hx Panic Disorder - Cancer History Hx Chemotherapy: No Hx Radiation Therapy: No - Surgical History Surgical History: Yes Surgery Procedure, Year, and Place: cath 2008,cholecystectomy 1969, vein stripped 2011, 2 c-sections, Bilateral knee arthroscopic, Hx Anesthesia Reactions: No - Immunization History Date of Tetanus Vaccine: utd Date of Influenza Vaccine: 06/2018 Infectious Disease History: No Infectious Disease History: Denies: Traveled Outside the [place] in Last 30 Days - Family History Known Family History: Positive: Cardiac Disease, Diabetes, Other - kidney stone (sister) Negative: Hypertension - Social History Alcohol Use: None Hx Substance Use: No Substance Use Type: Reports: None Hx Tobacco Use: Yes Smoking Status (MU): Former Smoker Amount Used/How Often: SOCIALLY X 15 YEARS Have You Smoked in the Last Year: No Review of Systems Positive: Nausea. Negative: Vomiting Positive: flank pain - right All Other Systems Reviewed And Are Negative: Yes Physical Exam - Summary Physical Exam Summary: Constitutional: Well-developed, Well-nourished, Alert. (-) Distressed Skin: Warm, Dry HENT: Normocephalic; Atraumatic Eyes: Conjunctiva normal Neck: Musculoskeletal ROM normal neck. (-) JVD, (-) Stridor, (-) Tracheal deviation Cardio: Rhythm regular, rate normal, Heart sounds normal; Intact distal pulses; The pedal pulses are 2+ and symmetric. Radial pulses are 2+ and symmetric. Pulmonary/Chest wall: Effort normal. (-) Respiratory distress, (-) Wheezes, (-) Rales Abd: Soft, (-) tenderness, (-) Distension, (-) Guarding, (-) Rebound Musculoskeletal: Very mild right CVA tenderness to percussion, (-) Edema Neuro: Alert, Oriented x3 Psych: Mood and affect Normal Triage Information Reviewed: Yes Vital Signs On Initial Exam: Initial Vitals Temp Pulse Resp BP Pulse Ox 98.3 F 71 18 118/89 99 10/24/19 15:51 10/24/19 15:51 10/24/19 15:51 10/24/19 15:51 10/24/19 15:51 Vital Signs Reviewed: Yes Procedures - Sedation Patient Received Moderate/Deep Sedation with Procedure: No Diagnostics - Vital Signs Vital Signs Temp Pulse Resp BP Pulse Ox 10/24/19 18:08 98.6 F 75 18 111/96 97 10/24/19 15:51 98.3 F 71 18 118/89 99 - Laboratory Result Diagrams: 10/24/19 20:22 10/24/19 20:22 Lab Statement: Any lab studies that have been ordered have been reviewed, and results considered in the medical decision making process. - Radiology Abd/Pel CT Radiology Interpretation Completed By: Radiologist Summary of Radiographic Findings: Impression: 1. A 1.1 cm calculus is seen in the proximal third of the right ureter. There is resulting hydroureteronephrosis. 2. Diverticulosis with no secondary signs of inflammation. 3. Status post cholecystectomy. ED physician has reviewed this report. Re-Evaluation - Re-Evaluation First Eval Re-Evaluation Time: 23:30 Comment: Patient agreeable with admission. GIGU Course/Dx - Course Course Of Treatment: Patient is a 68 y/o female with known renal calculus on the right and previous kidney stone history presenting with severe right flank pain worsening since onset at 1400 today, accompanied by nausea without vomiting. Physical exam reveals very mild right-sided CVA tenderness to percussion. Lab results without significant abnormalities. UA reveals 2+ blood, 3+ RBCs. Patient administered Zofran, Pepcid, Fentanyl, Toradol, lactated ringers, and Morphine. Abd/Pel CT impression reveals a 1.1cm calculus in the proximal third of the right ureter resulting in hydroureteronephrosis. I spoke with Dr. Correa from urology and he recommends admission as he will see the patient in the morning unless there is concern for a more immediate issue such as infection or intractable pain. Dr. Alicea accepted the patient for admission. Patient agreeable with plan. - Diagnoses Provider Diagnoses: Kidney stone - Physician Notifications Discussed Care Of Patient With: Alvaro Correa Time Discussed With Above Provider: 20:15 Instructed by Provider To: Other - Dr. Correa recommends admission, and he will see the patient in the morning unless there is concern for a more immediate issue such as infection or intractable pain. Dr. Alicea from the hospitalist services accepts patient for admission [[id number]]. Discharge ED - Sign-Out/Discharge Documenting (check all that apply): Patient Departure - Patient accepted for admission by Dr. Alicea. - Discharge Plan Condition: Stable Disposition: ADMITTED TO [facility] - Attestation Statements Document Initiated by Johnsonibe: Yes Documenting Scribe: Ana Maria Lantigua Provider For Whom Diana is Documenting (Include Credential): Dr. Marlo Pinto MD Scribe Attestation: IAna Maria, scribed for Dr. Marlo Pinto MD on 10/25/19 at 0611. Status of Scribe Document: Ready
[2019-10-24 20:32] LABS: ABS Eosinophils 0.2 10^3/ul (0-0.6); ABS Lymphocytes 1.7 10^3/ul (1.0-4.8); ABS Monocytes 0.4 10^3/ul (0-0.8); ABS Neutrophils 4.4 10^3/ul (1.5-7.7); Eosinophil % 2.6 %; Hematocrit 33 % (35-47); Hemoglobin 11.4 g/dL (12.0-16.0); Mean Corpuscular HGB Conc 35 g/dL (31-36); Mean Corpuscular Hemoglobin 30 pg (27-31); Mean Corpuscular Volume 87 fL (80-97); Mean Platelet Volume 8.7 fL (7.4-10.4); Platelet Count 197 10^3/uL (150-450); Red Blood Count 3.79 10^6 /uL (3.70-4.87); Red Cell Distribution Width 13 % (10-15); White Blood Count 6.7 10^3/uL (3.5-10.8)
[2019-10-24 20:48] LABS: BUN/Creatinine Ratio 29.9 (8-20); EGFR African American 89.7 (>60); EGFR Non-African American 74.1 (>60); Potassium 4.1 mmol/L (3.5-5.0)
[2019-10-24] MEDS ORDERED: Lactated Ringers 1000 ML Bag* 1,000 ML IV SCH ×2 (21:00→21:15)
[2019-10-24 21:25] LABS: Urine Appearance Clear; Urine Bilirubin Negative (Negative); Urine Blood 2+ (Negative); Urine Color Yellow; Urine Glucose Negative (Negative); Urine Ketones Negative (Negative); Urine Nitrite Negative (Negative); Urine Protein Negative (Negative); Urine Specific Gravity 1.019 (1.010-1.030); Urine Urobilinogen Negative (Negative)
[2019-10-24 21:32] LABS: Urine Bacteria Absent (Absent); Urine Red Blood Cell 3+(>10/hpf) (Absent); Urine Squamous Epithelial Cell Present (Absent); Urine White Blood Cell Trace(0-5/hpf) (Absent)
[2019-10-25] MEDS ORDERED: Morphine 4 MG/ML VIAL (1 ml) 4 MG/ML VIAL IV ONE (00:01)
[2019-10-25] MEDS ORDERED: oxyCODONE/Acetamin 5/325 MG* TAB PO PRN ×2 (00:29→00:30)
[2019-10-25] MEDS ORDERED: Ondansetron INJ* 2 MG/ML VIAL IV PRN ×2 (02:52→13:05)
--- NOTE | 2019-10-25 04:19 | HP ---
HISTORY AND PHYSICAL: DATE OF ADMISSION: 10/24/19 ADMITTING PROVIDER: Casey Alicea MD PRIMARY CARE PROVIDER: Dr. Bush. CHIEF COMPLAINT: Right flank and lower right abdominal pain of acute onset. HISTORY OF PRESENT ILLNESS: Shayy Alex is a 68-year-old female with the past medical history of hypertension, GERD, osteoarthritis, anxiety, depression, nephrolithiasis, and question jennifer diverticulitis. She on the date of admission at around 2 p.m. developed acute onset of right flank pain that radiates into her right lower quadrant. She had some nausea. She has also been having a few weeks of left-sided lower quadrant pain for which she followed with Dr. Bush on Thursday10/21/19 and he suspected possible diverticulitis. Apparently on her last colonoscopy, there was some concern for this with Dr. Patel 5 years ago and he gave her ciprofloxacin and did some labs and there was a plan for what daughter in the room describes as possibly a pelvic ultrasound in the future. She reports that she felt better after the ciprofloxacin. Dr. Correa follows with the patient and she has had a known right nephrolithiasis which has been proximal and not concerning. On initial in [facility], she had a CT scan of her abdomen and pelvis noncontrast which showed a 1.1 cm calculus seen in the proximal third of the right ureter and resulting hydroureteronephrosis. There was diverticulosis with no secondary signs of inflammation. She is status post cholecystectomy. Dr. Reed talked to Dr. Correa and he recommended overnight admission with plan for lithotripsy tomorrow morning and pain control until then and to watch for signs of sepsis or infection. She denies any fevers, she did have some chills. She has been getting multiple doses of 50 fentanyl at 2116, 2227, 1954. She also got ketorolac 15 mg at 1953. These have hopefully reduced her pain conservatively. She got 4 mg of IV morphine at 3. PAST MEDICAL HISTORY: Hypertension, GERD, osteoarthritis, anxiety, depression, nephrolithiasis, ?diverticulitis ( I suspect diverticulosis). MEDICATIONS: Include: 1. Losartan 25 mg p.o. b.i.d. 2. Pepcid 20 mg p.o. b.i.d. 3. Vitamin B12 shot 1000 mcg monthly . 4. Potassium chloride 20 mEq p.o. daily. 5. Folic acid 1 mg p.o. daily. 6. She was recently started on ciprofloxacin 250 mg p.o. b.i.d. ALLERGIES: She has multiple GI upsets with medications such as HYDROCODONE, AUGMENTIN, CLARITHROMYCIN, CEPHALEXIN, CIPROFLOXACIN, CEFUROXIME, AMOXICILLIN. She has PENICILLIN which gives itching and fatigue from CELEBREX. FAMILY HISTORY: Mother of lung cancer at age 74. She was a heavy smoker. Dad of heart attack at age 51. SOCIAL HISTORY: The patient is a former smoker, approximately 2 to 3 cigarettes a day for 10 years remotely. She does not drink alcohol. 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 Medical surrogate is her , Renaldo, who is in the room. She desires to be a full code. REVIEW OF SYSTEMS: Complete 14-point review of systems negative except as per HPI. She denies any dysuria, gross hematuria. PHYSICAL EXAMINATION GENERAL APPEARANCE: In no acute distress. VITAL SIGNS: Temperature 98.3, heart rate 71, satting 93% to 100% on room air, respiratory rate 16 to 18, blood pressure 118/89. HEENT: Normocephalic and atraumatic. Pupils are equal, round, and reactive to light. Extraocular motions intact. No scleral icterus. LUNGS: Clear to auscultation bilaterally. No wheezing, rales, or rhonchi. CARDIOVASCULAR: Regular rate and rhythm. No murmurs, rubs, or gallops. ABDOMEN: Soft, nontender, and nondistended. No CVA tenderness bilaterally though reportedly this would have been positive a few hours ago. EXTREMITIES: No peripheral edema. NEUROLOGIC: Cranial nerves II through XII intact. LABORATORY DATA: White count 6.7, hemoglobin 11.4, hematocrit 33, platelets 197. Sodium 139, potassium 4.1, chloride 108, carbon dioxide 23, BUN 23, creatinine 0.77, glucose 119, calcium 9.0. Urinalysis 2+ blood, trace leukocyte esterase, present squamous epithelial cells, 2+ rbc's. IMAGING: CT of abdomen and pelvis as above; noncontrast which showed a 1.1 cm calculus seen in the proximal third of the right ureter and resulting hydroureteronephrosis. There was diverticulosis with no secondary signs of inflammation. ASSESSMENT AND PLAN: Shayy Alex is a 68-year-old female with a history of nephrolithiasis presenting with 1.1 cm obstruction of the proximal 3rd of the right ureter. She is going to be n.p.o. midnight for possible touch with Dr. Correa. Monitor for signs of any infection until then. She is nontoxic appearing now. Continue with pain control with Percocet 1 subcutaneous 6 hours for moderate pain q.6 hours for severe pain. There were no signs of diverticulitis on the CT abdomen and pelvis and this is more of an empirical diagnosis and I can hold her ciprofloxacin for now. We will continue her Pepcid and folic acid. She is being admitted to observation status. She is a full code. Medical surrogate is her , Renaldo. [id number]/[facility] #: [id number] MTDLuisana
[2019-10-25 06:25] LABS: ABS Eosinophils 0.1 10^3/ul (0-0.6); ABS Lymphocytes 1.5 10^3/ul (1.0-4.8); ABS Monocytes 0.6 10^3/ul (0-0.8); ABS Neutrophils 4.7 10^3/ul (1.5-7.7); Eosinophil % 1.7 %; Hematocrit 32 % (35-47); Hemoglobin 10.9 g/dL (12.0-16.0); Lymphocyte % 22.2 %; Mean Corpuscular HGB Conc 35 g/dL (31-36); Mean Corpuscular Hemoglobin 30 pg (27-31); Mean Corpuscular Volume 87 fL (80-97); Mean Platelet Volume 8.7 fL (7.4-10.4); Platelet Count 167 10^3/uL (150-450); Red Blood Count 3.64 10^6 /uL (3.70-4.87); Red Cell Distribution Width 13 % (10-15); White Blood Count 6.9 10^3/uL (3.5-10.8)
[2019-10-25 06:53] LABS: BUN/Creatinine Ratio 23.5 (8-20); C Reactive Protein 8.75 mg/L (<8.01); Calcium 8.8 mg/dL (8.6-10.3); EGFR African American 64.8 (>60); EGFR Non-African American 53.6 (>60); Potassium 4.1 mmol/L (3.5-5.0)
[2019-10-25] MEDS ORDERED: Levofloxacin 500 MG IVPREMIX(* 500 MG/100 ML BAG IVPB ONE (08:08)
[2019-10-25] MEDS ORDERED: PROCHLORPERAZINE INJ 5 MG/ML 2 ML VIAL IV PRN (08:09)
--- NOTE | 2019-10-25 08:13 | PN ---
Subjective Date of Service: 10/25/19 Interval History: Pt vomited this this AM, denies abd pain, mild R flank pain Objective Active Medications: Famotidine (Pepcid Tab*) 20 mg PO BID ON LICENSE OF [facility] Last Admin: 10/25/19 07:13 Dose: 20 mg Folic Acid (Folvite Tab*) 1 mg PO DAILY ON LICENSE OF [facility] Last Admin: 10/25/19 07:13 Dose: 1 mg Lactated Ringer's (Lactated Ringers 1000 Ml Bag*) 1,000 mls @ 125 mls/hr IV PER RATE ON LICENSE OF [facility] Last Admin: 10/25/19 01:34 Dose: 125 mls/hr Levofloxacin/Dextrose (Levaquin 500 Mg Ivpremix(*)) 500 mg in 100 mls @ 100 mls /hr IVPB ONCE ONE; Protocol Stop: 10/25/19 09:07 Losartan Potassium (Cozaar Tab*) 25 mg PO BID ON LICENSE OF [facility] Last Admin: 10/25/19 07:13 Dose: 25 mg Oxycodone/Acetaminophen (Percocet 5/325 Tab*) 1 tab PO Q6H PRN PRN Reason: PAIN - MODERATE Oxycodone/Acetaminophen (Percocet 5/325 Tab*) 2 tab PO Q6H PRN PRN Reason: PAIN - SEVERE Last Admin: 10/25/19 03:47 Dose: 2 tab Potassium Chloride (Klor Con Er Tab*) 20 meq PO DAILY ON LICENSE OF [facility] Last Admin: 10/25/19 07:13 Dose: 20 meq Vital Signs - 8 hr 10/25/19 10/25/19 10/25/19 00:23 00:40 00:49 Temperature 97.9 F 98.1 F Pulse Rate 78 72 Respiratory 16 15 16 Rate Blood Pressure 149/75 143/70 (mmHg) O2 Sat by Pulse 97 94 Oximetry 10/25/19 10/25/19 10/25/19 03:41 03:47 07:11 Temperature 97.6 F Pulse Rate 71 Respiratory 16 20 16 Rate Blood Pressure 129/70 (mmHg) O2 Sat by Pulse 92 Oximetry 10/25/19 10/25/19 07:15 07:27 Temperature 97.8 F Pulse Rate 70 Respiratory 16 16 Rate Blood Pressure 110/62 (mmHg) O2 Sat by Pulse 97 Oximetry Oxygen Devices in Use Now: None Appearance: 68 yo F in nAD, AAox3 Eyes: No Scleral Icterus, PERRLA Ears/Nose/Mouth/Throat: NL Teeth, Lips, Gums, Mucous Membranes Moist Neck: NL Appearance and Movements; NL JVP, Trachea Midline Respiratory: Symmetrical Chest Expansion and Respiratory Effort, Clear to Auscultation Cardiovascular: NL Sounds; No Murmurs; No JVD, RRR Abdominal: - - mild R flank tenderness Lymphatic: No Cervical Adenopathy Extremities: No Edema, No Clubbing, Cyanosis Skin: No Rash or Ulcers, No Nodules or Sclerosis Neurological: Alert and Oriented x 3, NL Muscle Strength and Tone Result Diagrams: 10/25/19 05:59 10/25/19 05:59 Assess/Plan/Problems-Billing Assessment: 68 yo F with h/o renal stones presented with R hydronephrosis due to 1.1 cm ureteral stone - Patient Problems (1) Renal calculus, right Comment: planned for cystoscopy today. as d/w Dr. Correa, will administer a dose of Levaqui now. Pt had been on cipro as outpatient and has no allergy to Cipro (2) GERD (gastroesophageal reflux disease) Comment: Continue home Pepcid. (3) HTN (hypertension) Comment: cotrolled, cont home losartan (4) Anemia Comment: likely due to dilution-no signs or symptoms of bleeding (5) DVT prophylaxis Comment: ambulatory Status and Disposition: OBV
[2019-10-25] MEDS ORDERED: Cyanocobalamin TAB* 500 MCG PO SCH (09:00)
[2019-10-25] MEDS ORDERED: Potassium Chlor TAB* 10 MEQ TAB.ER PO SCH (09:00)
[2019-10-25] MEDS ORDERED: Famotidine TAB* 20 MG PO SCH (09:00)
[2019-10-25] MEDS ORDERED: Folic Acid TAB* 1 MG PO SCH (09:00)
[2019-10-25] MEDS ORDERED: Losartan TAB* 25 MG PO SCH ×2 (09:00→21:00)
[2019-10-25] MEDS ORDERED: Buffered Lidocaine 1% SYRIN* 1 ML/SYRINGE INTRADERM ONE (11:15)
[2019-10-25] MEDS ORDERED: Iohexol 180 (CONTRAST) 10 ML SDV IV ONE (11:44)
[2019-10-25] MEDS ORDERED: Lactated Ringers 1000 ML Bag* 1,000 ML IV SCH (12:00)
[2019-10-25] MEDS ORDERED: Midazolam* 1 MG/ML 2 ML VIAL (2 MG) ONE (12:38)
[2019-10-25] MEDS ORDERED: fentaNYL* 50 MCG/ML 2 ML VIAL (100 MCG VIAL) ONE (12:39)
[2019-10-25] MEDS ORDERED: Ondansetron INJ* 2 MG/ML VIAL ONE (12:41)
[2019-10-25] MEDS ORDERED: Lidocaine 2% PF * 5 ML VIAL ONE (12:41)
[2019-10-25] MEDS ORDERED: Succinylcholine* 20 MG/ML 10 ML VIAL ONE (12:41)
[2019-10-25] MEDS ORDERED: Propofol* 10 MG/ML 20 ML BTL ONE (12:41)
[2019-10-25] MEDS ORDERED: Dexamethasone IV* 4 MG/ML 1 ML (4 MG) ONE (12:41)
[2019-10-25] MEDS ORDERED: Acetaminophen IV 1GM/100ML * 1,000 MG/100 ML VIAL IVPB ONE (13:05)
[2019-10-25] MEDS ORDERED: diPHENhydraMINE IV* 50 MG/ML 1 ml VIAL (BENADRYL) IV PRN (13:05)
[2019-10-25] MEDS ORDERED: Naloxone* 0.4 MG/ML 1 ML VIAL IV PRN (13:05)
[2019-10-25] MEDS ORDERED: Scopolamine 1.5 mg* PATCH TRANSDERM PRN (13:05)
[2019-10-25] MEDS ORDERED: fentaNYL* 50 MCG/ML 2 ML VIAL (100 MCG VIAL) IV PRN (13:05)
[2019-10-25] MEDS ORDERED: Phenylephrine 40 MCG/ML SYRINGE ONE (13:18)
[2019-10-25 13:40] VITALS: BP 126/71
[2019-10-25 15:54] LABS: Activated Partial Thrombo Time 29.6 seconds (26.0-38.0); INR 1.23 (0.82-1.09)
--- NOTE | 2019-10-25 20:02 | DS ---
CC: Dr. Bush; Dr. Correa * DISCHARGE SUMMARY: DATE OF ADMISSION: 10/24/19 DATE OF DISCHARGE: 10/25/19 PRIMARY CARE PHYSICIAN: Dr. Bush. DISPOSITION AT DISCHARGE: Home. CONDITION AT DISCHARGE: Stable. DISCHARGE DIAGNOSIS: Right-sided flank pain due to right-sided hydronephrosis caused by obstructive ureteral stent, status post cystoscopy and right-sided stenting performed by Dr. Correa on 10/25/19. SECONDARY DIAGNOSES: 1. Hypertension. 2. Gastroesophageal reflux disease. 3. Osteoarthritis. 4. Anxiety. 5. Depression. MEDICATIONS AT DISCHARGE: Unchanged from admission include: 1. Losartan 25 mg b.i.d. 2. Pepcid 20 mg b.i.d. 3. Vitamin B12 shot 1000 mcg monthly. 4. Potassium chloride 20 mEq daily. 5. Folic acid 1 mg daily. LABORATORY DATA DURING THE HOSPITAL STAY: Included on 10/25/19: white blood cell count 6.9, hemoglobin of 10.9, hematocrit of 32, and platelets of 167. Sodium of 138, potassium 4.1, chloride 109, carbon dioxide 24, BUN 24, creatinine 1.02. Procedures performed included: Cystoscopy and right-sided ureteral stent placement by Dr. Correa. For physical exam on the day of discharge, please see daily progress notes. For followup, the patient is recommended to follow up with her primary care provider in approximately 4 to [address] Correa. Please call Dr. Correa's office for an appointment to be scheduled next week. HOSPITALIZATION COURSE: Shayy Alex is a 68-year-old female with history of right- sided renal stone in the past who presented with right flank pain, was noted to have right-sided hydronephrosis and a 1.1 cm stone in the right ureter. Dr. Correa performed a cystoscopy on the patient and placed a stent. The patient has plans to have a shockwave lithotripsy to be performed next week after followup with Dr. Correa. The patient is being discharged after her cystoscopy. She received 1 dose of Levaquin prior to her procedure and she will not require antibiotics at discharge. The patient is recommended to follow up as above mentioned. Please note that this is a short summary of the patient's hospitalization. Please refer to further medical records for details. [id number]/[facility] #: [id number] MARISELA
--- NOTE | 2019-10-25 21:34 | OP ---
CC: Dr. Sheng Bush * DATE OF OPERATION: 10/25/19 - ROOM #413 DATE OF : 46 SURGEON: Alvaro Correa MD ANESTHESIOLOGIST: Dr. Allen Gould. ANESTHESIA: General. PRE-OP DIAGNOSES: 1. Proximal right ureteral calculus. 2. Right renal colic due to above. POST-OP DIAGNOSES: 1. Proximal right ureteral calculus. 2. Right renal colic due to above. OPERATIVE PROCEDURE: 1. Cystoscopy. 2. Right retrograde pyelography and insertion of right ureteral stent (6- Latvian). INDICATIONS: Ms. Alex is a 68-year-old white female who has past history of renal calculus disease and who presented yesterday to the emergency room with symptoms of right renal colic. She did not have any fevers or chills. Noncontrast CT of the abdomen and pelvis showed a 1-cm calculus at the right ureteropelvic junction associated with moderate right hydronephrosis. The patient was admitted overnight for hydration and pain control. She remained afebrile. She is taken to the operating room for insertion of a right ureteral stent in preparation for definitive treatment of the stone. PATHOLOGY: At fluoroscopy, a radiopaque triangular calculus measuring about 1 cm was noted in the area of the proximal ureter. At cystoscopy, the bladder mucosa looked normal. There were no suspicious bladder lesions seen. The ureteral orifices looked normal. Upon right retrograde pyelography, there was moderate degree of right hydronephrosis. The urine from the right kidney looked clear. DESCRIPTION OF PROCEDURE: After successful general endotracheal anesthesia, the patient was placed in the lithotomy position and was prepped and draped for a cystoscopy. Cystoscopy was performed. The bladder was inspected and the above findings were noted. A flexible hybrid guidewire was then introduced into the right orifice and positioned in the area of the renal pelvis by fluoroscopy guidance. A size 5- Latvian open-ended catheter was fed on top of the guidewire and the retrograde pyelography was performed. The guidewire was then reinserted. A size 6-Latvian stent was then placed with the proximal end coiling in the renal pelvis and the distal end coiling inside the bladder. The patient tolerated the procedure well and left the operating room in good condition. The plan is to obtain a KUB postoperatively. The patient will be scheduled for shockwave lithotripsy and stent removal at a later date. [id number]/[facility] #: [id number] MARISELA
[2019-10-28] MEDS ORDERED: Scopolamine PATCH Remove* 1 NOTE MISC PATCH OFF ONE (13:10)
== END 2019-10-25 15:35 | disposition home or self-care (01) | DRG 661 ==
LOC: ED 15:37 → MED 23:57
PROVIDERS: ADMIT Internal Medicine; ATTEND Internal Medicine
PROC: BT1DYZZ Fluoroscopy of Right Kidney, Ureter and Bladder using Other Contrast (ICD-10-PCS; 2019-10-25)
PROC: 0T768DZ Dilation of Right Ureter with Intraluminal Device, Via Natural or Artificial Opening Endoscopic (ICD-10-PCS; principal; 2019-10-25 13:45)
DX: N13.2 Hydronephrosis with renal and ureteral calculous obstruction (principal); I10 Essential (primary) hypertension; M19.90 Unspecified osteoarthritis, unspecified site; F41.9 Anxiety disorder, unspecified; F32.9 Major depressive disorder, single episode, unspecified; M35.3 Polymyalgia rheumatica; K21.9 Gastro-esophageal reflux disease without esophagitis; K57.90 Diverticulosis of intestine, part unspecified, without perforation or abscess without bleeding; K44.9 Diaphragmatic hernia without obstruction or gangrene; H26.9 Unspecified cataract; D64.9 Anemia, unspecified; Z87.442 Personal history of urinary calculi; Z87.891 Personal history of nicotine dependence; Z88.8 Allergy status to other drugs, medicaments and biological substances; Z88.1 Allergy status to other antibiotic agents; Z88.0 Allergy status to penicillin; Z91.040 Latex allergy status; Z90.49 Acquired absence of other specified parts of digestive tract
CPT/HCPCS: 36415; 74018; 74176; 74420; 80048; 81003; 81015; 85025; 85610; 85730; 86140; 87086; 96374; 96375; 96376; 99284; A9270-GY; J0330; J0780; J1100; J1885; J1956; J2250; J2270; J2405; J2704; J3010